=== PATIENT | male | born 1985 | race Caucasian/White ===

== ENCOUNTER 2018-08-10 12:37 | Emergency (ER) | payer OTHER ==
[2018-08-10] MEDS ORDERED: SODIUM CHLORIDE 0.9% 1,000 ML IV ONE (13:46)
[2018-08-10] MEDS ORDERED: ACETAMINOPHEN 1,000 MG/100 ML 100 ML IV STA (13:46)
[2018-08-10] MEDS ORDERED: diphenhydrAMINE INJ 50 MG/ML VIAL IVP STA (13:46)
[2018-08-10] MEDS ORDERED: METOCLOPRAMIDE 10 MG/2 ML VIAL IVP STA (13:46)
--- NOTE | 2018-08-10 14:21 | CT Report ---
Reason: ESCOBAR Procedure Date: 08/10/2018 Accession Number: [id number] / [id number] Procedure: CT - Head W/O CPT Code: FULL RESULT: EXAM: CT HEAD EXAM DATE: 08/10/2018 02:12 PM. CLINICAL HISTORY: Headache behind right eye for 4 days. COMPARISON: None. TECHNIQUE: Multiaxial CT images were obtained from the foramen magnum to the vertex. Reformats: Sagittal and coronal. IV contrast: None. In accordance with CT protocol optimization, one or more of the following dose reduction techniques were utilized for this exam: automated exposure control, adjustment of mA and/or KV based on patient size, or use of iterative reconstructive technique. FINDINGS: Parenchyma: No intraparenchymal hemorrhage. No evidence of mass, midline shift, or CT findings of infarction. Sofia-white differentiation is distinct. Extraaxial Spaces: Normal for age. No subdural or epidural collections identified. Ventricles: Normal in size and position. Sinuses and Orbits: Imaged paranasal sinuses, orbits, and mastoids show no significant abnormality. Bones: No evidence of fracture or calvarial defect. Other: None. IMPRESSION: Negative nonenhanced head CT. RADIA
[2018-08-10] MEDS ORDERED: SUMAtriptan 6 MG/0.5 ML VIAL SUBQ STA (14:59)
--- NOTE | 2018-08-10 15:00 | ED Physician Documentation ---
PD HPI HEADACHE - Stated complaint Stated Complaint: MIGRAINE/NAUSEA/DIZZY - Chief complaint Chief Complaint: Neuro - History obtained from History obtained from: Patient - History of Present Illness Timing - onset: How many days ago (4) Timing - details: Gradual onset Severity Comments: moderate Worst headache ever?: No: Worst headache ever? Quality: Stabbing. No: Thunderclap, Throbbing Associated symptoms: Nausea. No: Fever, Stiff neck, Vomiting Improved by: Nothing Worsened by: Light, Noise Contributing factors: No: Anticoagulated - Additional information Additional information: 33-year-old male reports a sharp stabbing pain behind his left eye, the patient's pain is intense for 20 minutes and then subsides but is left with a dull ache mostly on the top of his head. The patient denies vision changes, eye redness, blurry vision, pentecostal pain, rash or ear pain. The patient has had episodes of this in the past over the years and the headaches are sporadic. Review of Systems Constitutional: denies: Fever, Chills Eyes: denies: Loss of vision, Decreased vision, Photophobia, Discharge, Irritation Ears: denies: Ear pain Nose: denies: Congestion Throat: denies: Sore throat Cardiac: denies: Chest pain / pressure Respiratory: denies: Cough GI: denies: Abdominal Pain : denies: Dysuria Skin: denies: Rash Musculoskeletal: denies: Neck pain Neurologic: reports: Headache. denies: Generalized weakness, Numbness, Difficulty speaking, Near syncope PD PAST MEDICAL HISTORY - Past Medical History Past Medical History: Yes GI: GERD - Past Surgical History Past Surgical History: Yes General: Cholecystectomy - Present Medications Home Medications: Ambulatory Orders Medication Instructions Recorded Confirmed Esomeprazole Magnesium [Nexium] 1 cap PO DAILY 08/08/16 08/10/18 Metoclopramide [Reglan] 10 mg PO Q6H PRN #30 tablet 08/10/18 Naproxen 500 mg PO BID PRN #60 tablet 08/10/18 Sumatriptan Succinate [Imitrex] 50 mg PO PRN PRN #20 tablet 08/10/18 - Allergies Allergies/Adverse Reactions: Allergies Allergy/AdvReac Type Severity Reaction Status Date / Time No Known Drug Allergies Allergy Verified 08/10/18 12:43 - Social History Does the pt smoke?: No Smoking Status: Never smoker Does the pt drink ETOH?: No Does the pt have substance abuse?: No - Immunizations Immunizations are current?: Yes - POLST Patient has POLST: No PD ED PE NORMAL - General General: Alert and oriented X 3, No acute distress - HEENT HEENT: Atraumatic, PERRL, EOMI, Ears normal, Pharynx benign - Neck Neck: Supple, no meningeal sign - Cardiac Cardiac: RRR, Strong equal pulses - Respiratory Respiratory: No respiratory distress - Derm Derm: Normal color - Extremities Extremities: No deformity - Neuro Neuro: Alert and oriented X 3, 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 The patient's headache seems to represent possibly a cluster headache. The patient's history is not suggestive of subarachnoid hemorrhage, bacterial meningitis or a venous sinus thrombosis, and currently I do not think any further workup is warranted in the emergency department at this point. Presently, the patient appears appropriate for discharge and ongoing outpatient management. I discussed the findings and plan with the patient and he understands and agrees. I discussed warning signs and recommended returning to the emergency department immediately for worsening or any concerns. Departure - Departure Disposition: 01 Home, Self Care Clinical Impression: Acute headache Qualifiers: Headache type: unspecified Intractability: not intractable Qualified Code(s): R51 - Headache Condition: Good Instructions: ED Cephalgia Unspecified, ED Headache Cluster Follow-Up: [facility] [Provider Group] - Within 1 week (If your symptoms are not improving you may require an outpatient MRI and referral to neurology) Prescriptions: Metoclopramide [Reglan] 10 mg PO Q6H PRN #30 tablet PRN Reason: Headache Naproxen 500 mg PO BID PRN #60 tablet PRN Reason: Pain Sumatriptan Succinate [Imitrex] 50 mg PO PRN PRN #20 tablet PRN Reason: Headache Comments: Please return to the emergency department for worsening symptoms or any concerns.
[2018-08-10] MEDS ORDERED: DEXAMETHASONE 10 MG/ML VIAL IVP STA (15:47)
[2018-08-10 16:32] VITALS: BP 118/66
== END 2018-08-10 16:33 | disposition home or self-care (01) ==
LOC: ED 12:37
DX: R51 Headache (principal)
CPT/HCPCS: 70450; 96361; 96365; 96372; 96375; 99283; J0131; J1200; J2765

== ENCOUNTER 2018-08-16 13:21 | Emergency (ER) | payer OTHER ==
[2018-08-16] MEDS ORDERED: IBUPROFEN 400 MG TABLET PO STA (15:00)
[2018-08-16] MEDS ORDERED: ACETAMINOPHEN 325 MG TABLET PO STA (15:00)
[2018-08-16] MEDS ORDERED: CYCLOBENZAPRINE 10 MG TABLET PO STA (15:01)
[2018-08-16] MEDS ORDERED: LIDOCAINE PATCH 5% TOP STA (15:01)
[2018-08-16 15:07] LABS: BILIRUBIN,URINE NEGATIVE (NEGATIVE); GLUCOSE, URINE (UA) NEGATIVE (NEGATIVE); KETONES,URINE (UA) NEGATIVE (NEGATIVE); LEUKOCYTE ESTERASE, URINE NEGATIVE (NEGATIVE); NITRITE,URINE NEGATIVE (NEGATIVE); OCCULT BLOOD,URINE NEGATIVE (NEGATIVE); PROTEIN,URINE NEGATIVE (NEGATIVE); UROBILINOGEN,URINE 0.2 (NORMAL) E.U./dL (NORMAL)
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
[2018-08-16 15:08] LABS: CLARITY,URINE CLEAR (CLEAR)
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
[2018-08-16] MEDS ORDERED: oxyCODONE 5 MG TABLET PO STA (16:48)
[2018-08-16 16:50] VITALS: BP 128/87
== END 2018-08-16 17:11 | disposition home or self-care (01) ==
LOC: ED 13:21
DX: S13.9XXA Sprain of joints and ligaments of unspecified parts of neck, initial encounter (principal); S23.3XXA Sprain of ligaments of thoracic spine, initial encounter; V43.52XA Car driver injured in collision with other type car in traffic accident, initial encounter; Y92.410 Unspecified street and highway as the place of occurrence of the external cause
CPT/HCPCS: 71046; 72040; 81003; 99283; A9270; 81001; 87086

== ENCOUNTER 2018-12-07 18:31 | Emergency (ER) | payer OTHER ==
[2018-12-07 18:35] VITALS: BP 132/87
--- NOTE | 2018-12-07 18:58 | ED Physician Documentation ---
PD HPI LOWER EXT INJURY - Stated complaint Stated Complaint: LT LEG INJURY - Chief complaint Chief Complaint: Ext Problem - History obtained from History obtained from: Patient, Family - History of Present Illness PD HPI LOW EXT INJURY LOCATION: Left, Lower leg, Ankle Type of injury: Fall Where injury occurred: Home Timing - onset: Last night Timing - duration: Days (1) Timing - details: Gradual onset Pain level max: 7 Pain level now: 7 Improved by: Rest, Ice, Immobilization Worsened by: Moving, Palpating Associated symptoms: Swelling. No: Weakness, Numbness, Tingling Contributing factors: No: Anticoagulated, Prior ortho surgery Similar symptoms before: Has not had sx before Recently seen: Not recently seen Review of Systems Constitutional: denies: Fever, Chills GI: denies: Vomiting Skin: denies: Rash Musculoskeletal: denies: Neck pain, Back pain Neurologic: denies: Headache PD PAST MEDICAL HISTORY - Past Medical History Cardiovascular: None Respiratory: None Neuro: None Endocrine/Autoimmune: None GI: GERD : None HEENT: None Psych: None Musculoskeletal: None Derm: None - Past Surgical History Past Surgical History: Yes General: Cholecystectomy, Other - Present Medications Home Medications: Ambulatory Orders Medication Instructions Recorded Confirmed Esomeprazole Magnesium [Nexium] 1 cap PO DAILY 08/08/16 08/10/18 Hydrocodone/Acetaminophen 1 - 2 each PO Q6H PRN #14 tablet 12/07/18 [Hydrocodon-Acetaminophen 5-325] - Allergies Allergies/Adverse Reactions: Allergies Allergy/AdvReac Type Severity Reaction Status Date / Time No Known Drug Allergies Allergy Verified 12/07/18 18:34 - Social History Does the pt smoke?: No Smoking Status: Never smoker Does the pt drink ETOH?: Yes Does the pt have substance abuse?: No - Immunizations Immunizations are current?: Yes - POLST Patient has POLST: No PD ED PE NORMAL - Vitals Vital signs reviewed: Yes - General General: Alert and oriented X 3, No acute distress - HEENT HEENT: Moist mucous membranes - Derm Derm: Warm and dry - Extremities Extremities: Other (Tender palpation over the mid fibula, also tender palpation over the lateral malleolus of the left ankle. Neurovascular intact. Otherwise normal examination of the left lower leg and ankle. No tenderness over the foot.) - Neuro Neuro: Alert and oriented X 3 Results - Vitals Vitals: Vital Signs - 24 hr 12/07/18 18:33 Temperature 37.2 C Heart Rate 75 Respiratory 20 Rate Blood Pressure 132/87 H O2 Saturation 100 Oxygen O2 Source Room air - Rads (name of study) L tib fib xray Radiology: Prelim report reviewed, EMP read contemporaneously, See rad report (Normal) L ankle xray Radiology: Prelim report reviewed, EMP read contemporaneously, See rad report (Normal) PD MEDICAL DECISION MAKING - ED course Complexity details: reviewed results, re-evaluated patient, considered differential, d/w patient, d/w family ED course: 33-year-old male with left ankle sprain. Negative x-rays. Placed in a gel splint for comfort and given crutches. Will prescribe pain medications for home and follow-up with his doctor. Patient and family counseled regarding signs and symptoms for which I believe and urgent re-evaluation would be necessary. Patient with good understanding of and agreement to plan and is comfortable going home at this time This document was made in part using voice recognition software. While efforts are made to proofread this document, sound alike and grammatical errors may occur. Departure - Departure Disposition: 01 Home, Self Care Clinical Impression: Left ankle sprain Qualifiers: Encounter type: initial encounter Involved ligament of ankle: unspecified ligament Qualified Code(s): S93.402A - Sprain of unspecified ligament of left ankle, initial encounter Condition: Good Instructions: ED Sprain Ankle W X Ray Follow-Up: [facility] [Provider Group] - Within 1 week Prescriptions: Hydrocodone/Acetaminophen [Hydrocodon-Acetaminophen 5-325] 1 - 2 each PO Q6H PRN #14 tablet PRN Reason: pain Comments: Your x-rays are normal today. This should improve over the next week or 2. Follow-up with your doctor for further care. You may bear weight as tolerated. Do not drink alcohol or drive while on narcotic pain medicine. Note that many narcotic pain relievers also contain tylenol/acetaminophen. Please ensure that your total dose of acetaminophen from all sources does not exceed 3 grams (3000mg) per day. You may constipated on this medication, take a stool softener such as "Colace" twice a day while you are on it. Also recommend a [id number] laxative such as senna or MiraLAX any day that you do not have a bowel movement. If you received narcotic pain medication in the emergency department, do not drive or operate machinery for the next 24 hours. Discharge Date/Time: 12/07/18 20:00
[2018-12-07] MEDS: HYDROcod/ACETAM 5/325 MG TABLET PO STA (19:14)
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
== END 2018-12-07 20:00 | disposition home or self-care (01) ==
LOC: ED 18:31
DX: S93.402A Sprain of unspecified ligament of left ankle, initial encounter (principal); W10.9XXA Fall (on) (from) unspecified stairs and steps, initial encounter; Y92.009 Unspecified place in unspecified non-institutional (private) residence as the place of occurrence of the external cause
CPT/HCPCS: 99283

== ENCOUNTER 2020-01-05 18:50 | Emergency (ER) | payer OTHER ==
[2020-01-05] MEDS ORDERED: MORPHINE 10 MG/ML VIAL IVP STA (19:06)
[2020-01-05 19:22] LABS: BILIRUBIN,URINE NEGATIVE (NEGATIVE); GLUCOSE, URINE (UA) NEGATIVE (NEGATIVE); KETONES,URINE (UA) NEGATIVE (NEGATIVE); LEUKOCYTE ESTERASE, URINE NEGATIVE (NEGATIVE); NITRITE,URINE NEGATIVE (NEGATIVE); OCCULT BLOOD,URINE NEGATIVE (NEGATIVE); PROTEIN,URINE NEGATIVE (NEGATIVE); UROBILINOGEN,URINE 0.2 (NORMAL) E.U./dL (NORMAL)
[2020-01-05 19:23] LABS: CLARITY,URINE CLEAR (CLEAR)
[2020-01-05 19:26] LABS: EOSINOPHILS % (AUTO) 0.5 %
[2020-01-05 19:29] LABS: BASOPHILS # (AUTO) 0.1 10^3/uL (0.0-0.1); BASOPHILS % (AUTO) 0.3 %; EOSINOPHILS # (AUTO) 0.1 10^3/uL (0.0-0.7); LYMPHOCYTES # (AUTO) 1.9 10^3/uL (1.5-3.5); LYMPHOCYTES % (AUTO) 10.9 %; MEAN CORPUSCULAR HEMOGLOBIN 30.7 pg (27.0-31.0); MEAN CORPUSCULAR HGB CONC 34.7 g/dL (32.0-36.0); MEAN CORPUSCULAR VOLUME 88.5 fL (80.0-94.0); MONOCYTES # (AUTO) 1.7 10^3/uL (0.0-1.0); MONOCYTES % (AUTO) 9.7 %; NEUTROPHILS # (AUTO) 13.4 10^3/uL (1.5-6.6); NEUTROPHILS % (AUTO) 77.8 %; PLT - PLATELET COUNT 259 10^3/uL (130-450); RED BLOOD COUNT 4.88 10^6/uL (4.70-6.10); RED CELL DISTRIBUTION WIDTH 12.3 % (12.0-15.0); WHITE BLOOD COUNT 17.2 x10^3/uL (4.8-10.8)
--- NOTE | 2020-01-05 19:31 | ED Physician Documentation ---
History of Present Illness - Stated complaint Stated Complaint: MALE - Chief complaint Chief Complaint: General - History obtained from History obtained from: Patient - History of Present Illness Timing: How many days ago (4) Pain level max: 8 Pain level now: 8 - Additonal information Additional information: Right lower quadrant and right back pain for the past 4 days. Worse with movement and better with rest. No fever. No nausea or vomiting. No dysuria. He feels like he is urinating less. Has not taken anything for this. Review of Systems Ten Systems: 10 systems reviewed and negative Constitutional: denies: Fever, Chills GI: denies: Vomiting, Diarrhea : denies: Dysuria, Frequency, Hesitancy Skin: denies: Rash Musculoskeletal: denies: Neck pain PD PAST MEDICAL HISTORY - Past Medical History Cardiovascular: None Respiratory: None Neuro: None Endocrine/Autoimmune: None GI: GERD : None HEENT: None Psych: None Musculoskeletal: None Derm: None - Past Surgical History Past Surgical History: Yes General: Cholecystectomy, Other - Present Medications Home Medications: Ambulatory Orders Medication Instructions Recorded Confirmed Esomeprazole Magnesium [Nexium] 1 cap PO DAILY 08/08/16 08/10/18 Amox/Clav 875/125 [Augmentin] 1 each PO Q12H #20 tablet 01/05/20 Oxycodone HCl 5 - 10 mg PO Q6H PRN #14 tablet 01/05/20 - Allergies Allergies/Adverse Reactions: Allergies Allergy/AdvReac Type Severity Reaction Status Date / Time No Known Drug Allergies Allergy Verified 01/05/20 18:57 - Social History Does the pt smoke?: No Smoking Status: Never smoker Does the pt drink ETOH?: Yes Does the pt have substance abuse?: No - Immunizations Immunizations are current?: Yes - POLST Patient has POLST: No PD ED PE NORMAL - Vitals Vital signs reviewed: Yes - General General: Alert and oriented X 3, No acute distress, Well developed/nourished - HEENT HEENT: Moist mucous membranes - Neck Neck: Supple, no meningeal sign - Cardiac Cardiac: RRR, No murmur - Respiratory Respiratory: No respiratory distress, Clear bilaterally - Abdomen Abdomen: Normal bowel sounds, Soft, Non distended, Other (Tender to palpation right lower quadrant McBurney's point. Positive guarding and rebound) - Back Back: No CVA TTP - Derm Derm: Warm and dry - Extremities Extremities: No edema - Neuro Neuro: Alert and oriented X 3 - Psych Psych: Normal mood, Normal affect Results - Vitals Vitals: Vital Signs - 24 hr 01/05/20 01/05/20 18:56 20:20 Temperature 37.3 C 37.9 C H Heart Rate 100 96 Respiratory 16 20 Rate Blood Pressure 132/77 H 125/73 O2 Saturation 97 96 Oxygen O2 Source Room air - Labs Labs: Laboratory Tests 01/05/20 01/05/20 01/05/20 19:15 19:20 19:20 WBC 17.2 H RBC 4.88 Hgb 15.0 Hct 43.2 MCV 88.5 MCH 30.7 MCHC 34.7 RDW 12.3 Plt Count 259 MPV 10.0 Neut # (Auto) 13.4 H Lymph # (Auto) 1.9 [place] # (Auto) 1.7 H Eos # (Auto) 0.1 Baso # (Auto) 0.1 Absolute Nucleated RBC 0.00 Band Neuts % (Manual) Not Reportable Abnorm Lymph % (Manual) Not Reportable Nucleated RBC % 0.0 Neutrophils # (Manual) Not Reportable Lymphocytes # (Manual) Not Reportable Monocytes # (Manual) Not Reportable Eosinophils # (Manual) Not Reportable Basophils # (Manual) Not Reportable Differential Comment MANUAL=AUTO DIFF Manual Slide Review Indicated Platelet Estimate NORMAL (130-450,000) Platelet Morphology NORMAL APPEARANCE RBC Morph Micro Appear NORMAL APPEARANCE Sodium 137 Potassium 3.7 Chloride 102 Carbon Dioxide 25 Anion Gap 10.0 BUN 21 H Creatinine 1.2 Estimated GFR (MDRD) 69 L Glucose 106 H Calcium 9.1 Total Bilirubin 1.1 H AST 21 ALT 30 Alkaline Phosphatase 71 Total Protein 7.3 Albumin 4.3 Globulin 3.0 Albumin/Globulin Ratio 1.4 Lipase 33 Urine Color YELLOW Urine Clarity CLEAR Urine pH 6.0 Ur Specific [place] 1.025 Urine Protein NEGATIVE Urine Glucose (UA) NEGATIVE Urine Ketones NEGATIVE Urine Occult Blood NEGATIVE Urine Nitrite NEGATIVE Urine Bilirubin NEGATIVE Urine Urobilinogen 0.2 (NORMAL) Ur Leukocyte Esterase NEGATIVE Ur Microscopic Review NOT INDICATED Urine Culture Comments NOT INDICATED - Rads (name of study) CT abdomen and pelvis Radiology: Prelim report reviewed, EMP read contemporaneously, See rad report (Sigmoid diverticulitis. Trace amount of free fluid but no drainable fluid collections or extraluminal gas. ) PD MEDICAL DECISION MAKING - ED course Complexity details: reviewed results, re-evaluated patient, considered differential, d/w patient ED course: 34-year-old male with sigmoid diverticulitis. Given antibiotics here. Pain well controlled. No drainable abscess. No extraluminal gas. We will continue antibiotics and pain medication at home. He is well-appearing, nontoxic. Afebrile. Patient counseled regarding signs and symptoms for which I believe and urgent re-evaluation would be necessary. Patient with good understanding of and agreement to plan and is comfortable going home at this time This document was made in part using voice recognition software. While efforts are made to proofread this document, sound alike and grammatical errors may occur. Departure - Departure Disposition: 01 Home, Self Care Clinical Impression: Diverticulitis Condition: Good Instructions: ED Diverticulitis Follow-Up: your,doctor in 3 days for recheck [Other] Prescriptions: Amox/Clav 875/125 [Augmentin] 1 each PO Q12H #20 tablet Oxycodone HCl 5 - 10 mg PO Q6H PRN #14 tablet PRN Reason: pain Comments: Take all antibiotics until gone. Return if you worsen. Return if you develop worsening pain, fever or any other new or worrisome symptoms. This should begin to improve within the next 24 hours[address] not drink alcohol or drive while on narcotic pain medicine. Note that many narcotic pain relievers also contain tylenol/acetaminophen. Please ensure that your total dose of acetaminophen from all sources does not exceed 3 grams (3000mg) per day. You may constipated on this medication, take a stool softener such as "Colace" twice a day while you are on it. Also recommend a [id number] laxative such as senna or MiraLAX any day that you do not have a bowel movement. If you received narcotic pain medication in the emergency department, do not drive or operate machinery for the next 24 hours. Discharge Date/Time: 01/05/20 20:22
[2020-01-05 19:40] LABS: ALBUMIN 4.3 g/dL (3.2-5.5); ALBUMIN/GLOBULIN RATIO 1.4 (1.0-2.2); BILIRUBIN,TOTAL 1.1 mg/dL (0.2-1.0); CALCIUM 9.1 mg/dL (8.5-10.3); CREATININE 1.2 mg/dL (0.6-1.2); TOTAL PROTEIN 7.3 g/dL (6.7-8.2)
[2020-01-05] MEDS ORDERED: IOVERSOL 320 100 ML VIAL IVP ONE ×2 (19:50→19:59)
[2020-01-05 20:06] LABS: PLATELET ESTIMATE, MANUAL NORMAL (130-450,000) (NORMAL); PLATELET MORPHOLOGY NORMAL APPEARANCE (NORMAL); RBC MORPHOLOGY (MULTIPLE) NORMAL APPEARANCE (NORMAL)
[2020-01-05 20:07] LABS: DIFFERENTIAL COMMENT MANUAL=AUTO DIFF
--- NOTE | 2020-01-05 20:10 | CT Report ---
Reason: RLQ abd pain Procedure Date: 01/05/2020 Accession Number: [id number] / [id number] Procedure: CT - Abdomen/Pelvis W CPT Code: Final Report FULL RESULT: EXAM: CT ABDOMEN AND PELVIS EXAM DATE: 01/05/2020 07:56 PM. CLINICAL HISTORY: RLQ abd pain. COMPARISONS: None. TECHNIQUE: Routine helical CT imaging was performed through the abdomen and pelvis. IV contrast: OPTIRAY 320, 100cc. Enteric contrast: No. Reconstructions: Coronal and sagittal. In accordance with CT protocol optimization, one or more of the following dose reduction techniques were utilized for this exam: automated exposure control, adjustment of mA and/or KV based on patient size, or use of iterative reconstructive technique. FINDINGS: Lung Bases: Unremarkable. Liver: Normal. No masses. Gallbladder/Bile Ducts: Status post cholecystectomy. Spleen: Normal. Pancreas: Normal. Adrenal Glands: Normal. Kidneys: Normal. No masses or hydronephrosis. Peritoneal Cavity/Bowel: Diverticulosis, greatest in the sigmoid colon, with focal short segment of diverticulitis involving the distal sigmoid colon best seen on images 72 through 75 of series 3. No extraluminal gas. No drainable fluid collections. Trace amount of free fluid in the pelvis. The appendix is well visualized and normal. Pelvic Organs: Normal. The bladder and visualized pelvic organs are within normal limits. Vasculature: No aneurysms or other significant abnormality. Bones: No significant abnormality. Other: None. IMPRESSION: Sigmoid diverticulitis. Trace amount of free fluid but no drainable fluid collections or extraluminal gas. RADIA
[2020-01-05] MEDS ORDERED: AMOX/CLAV 875 MG/125 MG TABLET PO STA (20:13)
[2020-01-05 20:21] VITALS: BP 125/73
== END 2020-01-05 20:22 | disposition home or self-care (01) ==
LOC: ED 18:50
DX: K57.32 Diverticulitis of large intestine without perforation or abscess without bleeding (principal)
CPT/HCPCS: 36415; 74177; 80053; 81003; 83690; 85025; 96374; 99284; A9270; Q9967; 81001; 87086

== ENCOUNTER 2020-01-18 09:07 | Emergency (ER) | payer OTHER ==
--- NOTE | 2020-01-18 09:20 | ED Physician Documentation ---
PD HPI ABD PAIN - Stated complaint Stated Complaint: R LOWER ABD PX,BLOOD IN STOOL - History obtained from History obtained from: Patient - History of Present Illness Timing - onset: How many days ago (2) Timing - duration: Days (2) Timing - details: Gradual onset, Still present Quality: Cramping, Aching, Pain Location: RLQ, Suprapubic Radiation: Lower back Worsened by: Palpation. No: Eating, Breathing Associated symptoms: Nausea, Hematochezia (today). No: Fever, Vomiting Similar symptoms before: Diagnosis (seen 2 weeks ago and Dx with sigmoid diverticulitis by CT and labs. Rx with Augmentin BID for 10d ays and was better after several days. Had been done abx for 4 days and with similar pain onset again 2 days ago. Bloody stool bright red today.) Recently seen: Emergency Dept Review of Systems Constitutional: denies: Fever, Chills, Myalgias Nose: denies: Rhinorrhea / runny nose, Congestion Throat: denies: Sore throat Respiratory: denies: Cough GI: reports: Abdominal Pain, Nausea, Bloody / black stool. denies: Vomiting, Diarrhea : denies: Dysuria, Frequency Skin: denies: Rash, Lesions Neurologic: denies: Generalized weakness, Near syncope PD PAST MEDICAL HISTORY - Past Medical History Cardiovascular: None Respiratory: None Neuro: None Endocrine/Autoimmune: None GI: GERD : None HEENT: None Psych: None Musculoskeletal: None Derm: None - Past Surgical History Past Surgical History: Yes General: Cholecystectomy, Other - Present Medications Home Medications: Ambulatory Orders Medication Instructions Recorded Confirmed Esomeprazole Magnesium [Nexium] 1 cap PO DAILY 08/08/16 08/10/18 Amox/Clav 875/125 [Augmentin] 1 each PO Q12H #20 tablet 01/05/20 Oxycodone HCl 5 - 10 mg PO Q6H PRN #14 tablet 01/05/20 Cephalexin [Keflex] 500 mg PO TID #21 capsule 01/18/20 Hydrocodone/Acetaminophen [[place] 1 each PO Q6H PRN #20 tablet 01/18/20 5-325 Tablet] Naproxen 375 mg PO BID #20 tablet 01/18/20 Ondansetron Odt [Zofran] 4 mg TL Q6H PRN #15 tablet 05/14/20 metroNIDAZOLE [Flagyl] 500 mg PO BID #20 tablet 01/18/20 - Allergies Allergies/Adverse Reactions: Allergies Allergy/AdvReac Type Severity Reaction Status Date / Time No Known Drug Allergies Allergy Verified 01/18/20 09:22 - Social History Does the pt smoke?: No Smoking Status: Never smoker Does the pt drink ETOH?: Yes Does the pt have substance abuse?: No - Immunizations Immunizations are current?: Yes - POLST Patient has POLST: No PD ED PE NORMAL - Vitals Vital signs reviewed: Yes - General General: Alert and oriented X 3, No acute distress, Well developed/nourished - Neck Neck: Supple, no meningeal sign, No adenopathy - Cardiac Cardiac: RRR, No murmur - Respiratory Respiratory: Clear bilaterally - Abdomen Abdomen: Normal bowel sounds, Soft, Non distended, No organomegaly, Other (tender RLQ and suprapubic area with local guarding and percussion/rebound tenderness lower abd. ) Results - Vitals Vitals: Vital Signs - 24 hr 01/18/20 01/18/20 09:23 11:32 Temperature 37.0 C 36.4 C L Heart Rate 70 56 L Respiratory 18 16 Rate Blood Pressure 141/85 H 118/81 H O2 Saturation 96 98 Oxygen O2 Source Room air - Labs Labs: Laboratory Tests 01/18/20 01/18/20 01/18/20 10:05 10:06 10:31 WBC 12.6 H RBC 5.00 Hgb 15.7 Hct 44.6 MCV 89.2 MCH 31.4 H MCHC 35.2 RDW 12.4 Plt Count 302 MPV 9.4 Neut # (Auto) 9.9 H Lymph # (Auto) 1.8 [place] # (Auto) 0.8 Eos # (Auto) 0.1 Baso # (Auto) 0.0 Absolute Nucleated RBC 0.00 Nucleated RBC % 0.0 Sodium 134 L Potassium 4.2 Chloride 98 L Carbon Dioxide 27 Anion Gap 9.0 BUN 24 H Creatinine 1.1 Estimated GFR (MDRD) 76 L Glucose 84 Calcium 8.7 Total Bilirubin 0.7 AST 23 ALT 22 Alkaline Phosphatase 62 Total Protein 6.8 Albumin 3.6 Globulin 3.2 Albumin/Globulin Ratio 1.1 Lipase 31 Urine Color YELLOW Urine Clarity CLEAR Urine pH 6.0 Ur Specific [place] 1.020 Urine Protein NEGATIVE Urine Glucose (UA) NEGATIVE Urine Ketones NEGATIVE Urine Occult Blood NEGATIVE Urine Nitrite NEGATIVE Urine Bilirubin NEGATIVE Urine Urobilinogen 0.2 (NORMAL) Ur Leukocyte Esterase NEGATIVE Ur Microscopic Review NOT INDICATED Urine Culture Comments NOT INDICATED - Rads (name of study) abd CT Radiology: Prelim report reviewed (sigmoid diverticulitis without perforation nor abscess. ), See rad report PD MEDICAL DECISION MAKING - ED course Complexity details: reviewed results (persistent sigmoid diverticulitis, will change abx and give NSAIDs/pain meds. Stable vitals and blood count, so presume not clinically significant GI bleeding as yet. Cautioned pt to return if worse. ), considered differential (recurrent pain c/w recent diverticulitis and with hematachezia now, shared decision to repeat CT to ensure no perforation nor abscess. ), d/w patient Departure - Departure Disposition: 01 Home, Self Care Clinical Impression: Sigmoid diverticulitis, Bloody stool Abdominal pain Qualifiers: Abdominal location: right lower quadrant Qualified Code(s): R10.31 - Right lower quadrant pain Condition: Stable Instructions: ED Diverticulitis, ED Hematochezia Stable Follow-Up: JERED SEPULVEDA III, MD [Primary Care Provider] - Prescriptions: Cephalexin [Keflex] 500 mg PO TID #21 capsule Hydrocodone/Acetaminophen [[place] 5-325 Tablet] 1 each PO Q6H PRN #20 tablet PRN Reason: Pain metroNIDAZOLE [Flagyl] 500 mg PO BID #20 tablet Naproxen 375 mg PO BID #20 tablet Ondansetron Odt [Zofran] 4 mg TL Q6H PRN #15 tablet PRN Reason: Nausea / Vomiting Comments: Stay well hydrated. The blood in the stool is a common enough problem associated with diverticulitis. Your CT scan does not show any abscess or signs of perforation. There is still persistent diverticulitis. We will go with a different antibiotic regimen of cephalexin and metronidazole and see if that clears the diverticulitis this time. You can also use naproxen anti-inflammatory for the inflammation part and add ondansetron if needed for nausea. To that add Tylenol if needed for pain or hydrocodone for worse pain. Recheck if not improved well over the next 2 to 3 days and the bleeding has stop ped. Return if worsening. Discharge Date/Time: 01/18/20 12:15
[2020-01-18] MEDS ORDERED: metroNIDAZOLE 500 MG/100 ML 500 MG/100 ML BAG IV ONE (09:55)
[2020-01-18] MEDS ORDERED: cefTRIAXone 1 GM VIAL IVP STA (09:55)
[2020-01-18] MEDS ORDERED: SODIUM CHLORIDE 0.9% 1,000 ML IV ONE (09:55)
[2020-01-18] MEDS ORDERED: IOVERSOL 320 100 ML VIAL IVP ONE ×2 (10:03→12:18)
[2020-01-18] MEDS ORDERED: KETOROLAC 30 MG/ML VIAL IVP STA (10:10)
[2020-01-18] MEDS ORDERED: ONDANSETRON 4 MG/2 ML VIAL IVP STA (10:10)
[2020-01-18] MEDS ORDERED: MORPHINE 2 MG/ML CARPUJECT IVP STA (10:10)
[2020-01-18 10:12] LABS: BASOPHILS % (AUTO) 0.3 %; EOSINOPHILS # (AUTO) 0.1 10^3/uL (0.0-0.7); EOSINOPHILS % (AUTO) 0.6 %; HGB - HEMOGLOBIN 15.7 g/dL (14.0-18.0); LYMPHOCYTES # (AUTO) 1.8 10^3/uL (1.5-3.5); LYMPHOCYTES % (AUTO) 14.1 %; MEAN CORPUSCULAR HEMOGLOBIN 31.4 pg (27.0-31.0); MEAN CORPUSCULAR HGB CONC 35.2 g/dL (32.0-36.0); MEAN CORPUSCULAR VOLUME 89.2 fL (80.0-94.0); MEAN PLATELET VOLUME 9.4 fL (7.4-11.4); MONOCYTES # (AUTO) 0.8 10^3/uL (0.0-1.0); NEUTROPHILS # (AUTO) 9.9 10^3/uL (1.5-6.6); NEUTROPHILS % (AUTO) 78.4 %; PLT - PLATELET COUNT 302 10^3/uL (130-450); RED CELL DISTRIBUTION WIDTH 12.4 % (12.0-15.0); WHITE BLOOD COUNT 12.6 x10^3/uL (4.8-10.8)
[2020-01-18 10:15] LABS: BILIRUBIN,URINE NEGATIVE (NEGATIVE); GLUCOSE, URINE (UA) NEGATIVE (NEGATIVE); KETONES,URINE (UA) NEGATIVE (NEGATIVE); LEUKOCYTE ESTERASE, URINE NEGATIVE (NEGATIVE); NITRITE,URINE NEGATIVE (NEGATIVE); OCCULT BLOOD,URINE NEGATIVE (NEGATIVE); PROTEIN,URINE NEGATIVE (NEGATIVE); UROBILINOGEN,URINE 0.2 (NORMAL) E.U./dL (NORMAL)
[2020-01-18 10:16] LABS: CLARITY,URINE CLEAR (CLEAR)
--- NOTE | 2020-01-18 10:48 | CT Report ---
Reason: recnt diverticulitis; pain again, peritoneal exam Procedure Date: 01/18/2020 Accession Number: [id number] / [id number] Procedure: CT - Abdomen/Pelvis W CPT Code: Final Report FULL RESULT: EXAM: CT ABDOMEN AND PELVIS EXAM DATE: 01/18/2020 10:26 AM. CLINICAL HISTORY: Recent diverticulitis; pain again, peritoneal exam. COMPARISONS: ABDOMEN/PELVIS W 01/05/2020 7:51 PM. TECHNIQUE: Routine helical CT imaging was performed through the abdomen and pelvis. IV contrast: 100 mL OPTIRAY 320. Enteric contrast: No. Reconstructions: Coronal and sagittal. In accordance with CT protocol optimization, one or more of the following dose reduction techniques were utilized for this exam: automated exposure control, adjustment of mA and/or KV based on patient size, or use of iterative reconstructive technique. FINDINGS: Lung Bases: Unremarkable. Liver: Normal. No masses. Gallbladder/Bile Ducts: Previous cholecystectomy. No biliary ductal dilatation identified. Spleen: Normal. Pancreas: Normal. Adrenal Glands: Normal. Kidneys: Normal. No masses or hydronephrosis. Peritoneal Cavity/Bowel: No bowel obstruction identified. Again seen is long segment mural thickening and diverticuli of the sigmoid. There is pericolonic fat stranding involving the proximal to mid aspect of the sigmoid, consistent with diverticulitis. No free air or free fluid. No abscess identified. The appendix is well visualized and normal. Pelvic Organs: Normal. The bladder and visualized pelvic organs are within normal limits. Vasculature: No aneurysms or other significant abnormality. Bones: No significant abnormality. Other: None. IMPRESSION: Diverticulitis of the proximal to mid sigmoid. No free air or abscess identified. RADIA
[2020-01-18 10:52] LABS: ALBUMIN 3.6 g/dL (3.2-5.5); ALBUMIN/GLOBULIN RATIO 1.1 (1.0-2.2); BILIRUBIN,TOTAL 0.7 mg/dL (0.2-1.0); CALCIUM 8.7 mg/dL (8.5-10.3); CREATININE 1.1 mg/dL (0.6-1.2); TOTAL PROTEIN 6.8 g/dL (6.7-8.2)
[2020-01-18 11:43] VITALS: BP 118/81
== END 2020-01-18 12:15 | disposition home or self-care (01) ==
LOC: ED 09:07
DX: K57.33 Diverticulitis of large intestine without perforation or abscess with bleeding (principal)
CPT/HCPCS: 36415; 74177; 80053; 81003; 83690; 85025; 96365; 96375; 99284; 99285; Q9967; 81001; 87086

== ENCOUNTER 2020-02-08 22:30 | Emergency (ER) | payer OTHER ==
--- NOTE | 2020-02-08 22:35 | ED Physician Documentation ---
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[employer] with a known history of diverticulitis recently completed a course of Augmentin and Flagyl he has a scheduled outpatient evaluation this week with gastroenterology however tonight he is having worsening abdominal pain with nausea and irregular bowel movements without hematemesis or hematochezia.He denies any fevers.) Review of Systems Constitutional: reports: Reviewed and negative Eyes: reports: Reviewed and negative Ears: reports: Reviewed and negative Nose: reports: Reviewed and negative Throat: reports: Reviewed and negative Cardiac: reports: Reviewed and negative Respiratory: reports: Reviewed and negative GI: reports: Abdominal Pain, Nausea : reports: Reviewed and negative Skin: reports: Reviewed and negative Musculoskeletal: reports: Reviewed and negative Neurologic: reports: Reviewed and negative Psychiatric: reports: Reviewed and negative Endocrine: reports: Reviewed and negative Immunocompromised: reports: Reviewed and negative PD PAST MEDICAL HISTORY - Past Medical History Cardiovascular: None Respiratory: None Neuro: None Endocrine/Autoimmune: None GI: GERD : None HEENT: None Psych: None Musculoskeletal: None Derm: None - Past Surgical History Past Surgical History: Yes General: Cholecystectomy, Other - Present Medications Home Medications: Ambulatory Orders Medication Instructions Recorded Confirmed Esomeprazole Magnesium [Nexium] 1 cap PO DAILY 08/08/16 08/10/18 Amox/Clav 875/125 [Augmentin] 1 each PO Q12H #20 tablet 01/05/20 Oxycodone HCl 5 - 10 mg PO Q6H PRN #14 tablet 01/05/20 Cephalexin [Keflex] 500 mg PO TID #21 capsule 01/18/20 Hydrocodone/Acetaminophen [[place] 1 each PO Q6H PRN #20 tablet 01/18/20 5-325 Tablet] Naproxen 375 mg PO BID #20 tablet 01/18/20 Ondansetron Odt [Zofran] 4 mg TL Q6H PRN #15 tablet 01/18/20 metroNIDAZOLE [Flagyl] 500 mg PO BID #20 tablet 01/18/20 Dicyclomine [Bentyl] 20 mg PO QID PRN #10 capsule 02/09/20 - Allergies Allergies/Adverse Reactions: Allergies Allergy/AdvReac Type Severity Reaction Status Date / Time No Known Drug Allergies Allergy Verified 01/18/20 09:22 - Social History Does the pt smoke?: No Smoking Status: Never smoker Does the pt drink ETOH?: Yes Does the pt have substance abuse?: No - Immunizations Immunizations are current?: Yes - POLST Patient has POLST: No PD ED PE NORMAL - Vitals Vital signs reviewed: Yes - General General: Alert and oriented X 3, No acute distress, Well developed/nourished - HEENT HEENT: PERRL, Moist mucous membranes - Neck Neck: Supple, no meningeal sign, No JVD - Cardiac Cardiac: RRR, No murmur, Strong equal pulses - Respiratory Respiratory: No respiratory distress, Clear bilaterally - Abdomen Abdomen: Other (The abdomen soft its diffusely tender and is tender in bilateral lower quadrants as well as suprapubically. 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, No motor deficit, No sensory deficit, Normal speech - Psych Psych: Normal mood, Normal affect Results - Vitals Vitals: Vital Signs - 24 hr 02/08/20 02/08/20 02/09/20 22:39 23:40 00:30 Temperature 36.7 C Heart Rate 66 78 55 L Respiratory 18 12 16 Rate Blood Pressure 126/80 114/72 114/79 O2 Saturation 99 98 96 Oxygen O2 Source Room air - Labs Labs: Laboratory Tests 02/08/20 02/08/20 02/08/20 22:47 22:47 22:47 WBC 8.1 RBC 4.77 Hgb 14.9 Hct 41.9 L MCV 87.8 MCH 31.2 H MCHC 35.6 RDW 12.6 Plt Count 225 MPV 9.9 Neut # (Auto) 4.2 Lymph # (Auto) 2.9 [place] # (Auto) 0.7 Eos # (Auto) 0.2 Baso # (Auto) 0.1 Absolute Nucleated RBC 0.00 Nucleated RBC % 0.0 PT 10.9 INR 1.0 APTT 29.8 Sodium 139 Potassium 3.6 Chloride 102 Carbon Dioxide 28 Anion Gap 9.0 BUN 16 Creatinine 1.3 H Estimated GFR (MDRD) 62 L Glucose 87 Lactic Acid Calcium 9.0 Total Bilirubin 0.8 AST 29 ALT 41 Alkaline Phosphatase 62 Total Protein 7.2 Albumin 4.3 Globulin 2.9 Albumin/Globulin Ratio 1.5 Lipase 33 02/08/20 22:47 WBC RBC Hgb Hct MCV MCH MCHC RDW Plt Count MPV Neut # (Auto) Lymph # (Auto) [place] # (Auto) Eos # (Auto) Baso # (Auto) Absolute Nucleated RBC Nucleated RBC % PT INR APTT Sodium Potassium Chloride Carbon Dioxide Anion Gap BUN Creatinine Estimated GFR (MDRD) Glucose Lactic Acid 0.7 Calcium Total Bilirubin AST ALT Alkaline Phosphatase Total Protein Albumin Globulin Albumin/Globulin Ratio Lipase PD MEDICAL DECISION MAKING - ED course Complexity details: considered differential (History and exam are consistent with diverticulitis) Departure - Departure Disposition: 01 Home, Self Care Clinical Impression: Diverticulosis Condition: Stable Instructions: ED Diverticulosis Follow-Up: JERED SEPULVEDA III, MD [Primary Care Provider] - Prescriptions: Dicyclomine [Bentyl] 20 mg PO QID PRN #10 capsule PRN Reason: Abdominal Pain Comments: 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 Take Bentyl as needed hydrate well.
[2020-02-08] MEDS ORDERED: SODIUM CHLORIDE 0.9% 1,000 ML IV STA (22:47)
[2020-02-08] MEDS ORDERED: MORPHINE 2 MG/ML CARPUJECT IVP STA (22:47)
[2020-02-08] MEDS ORDERED: ONDANSETRON 4 MG/2 ML VIAL IVP STA (22:47)
[2020-02-08 23:00] LABS: BASOPHILS # (AUTO) 0.1 10^3/uL (0.0-0.1); BASOPHILS % (AUTO) 0.6 %; EOSINOPHILS # (AUTO) 0.2 10^3/uL (0.0-0.7); EOSINOPHILS % (AUTO) 2.4 %; HGB - HEMOGLOBIN 14.9 g/dL (14.0-18.0); LYMPHOCYTES # (AUTO) 2.9 10^3/uL (1.5-3.5); LYMPHOCYTES % (AUTO) 35.9 %; MEAN CORPUSCULAR HEMOGLOBIN 31.2 pg (27.0-31.0); MEAN CORPUSCULAR HGB CONC 35.6 g/dL (32.0-36.0); MEAN CORPUSCULAR VOLUME 87.8 fL (80.0-94.0); MEAN PLATELET VOLUME 9.9 fL (7.4-11.4); MONOCYTES # (AUTO) 0.7 10^3/uL (0.0-1.0); MONOCYTES % (AUTO) 8.8 %; NEUTROPHILS # (AUTO) 4.2 10^3/uL (1.5-6.6); NEUTROPHILS % (AUTO) 51.8 %; PLT - PLATELET COUNT 225 10^3/uL (130-450); RED BLOOD COUNT 4.77 10^6/uL (4.70-6.10); RED CELL DISTRIBUTION WIDTH 12.6 % (12.0-15.0); WHITE BLOOD COUNT 8.1 x10^3/uL (4.8-10.8)
[2020-02-08 23:04] LABS: PT - PROTHROMBIN TIME 10.9 secs (9.9-12.6)
[2020-02-08 23:11] LABS: ALBUMIN 4.3 g/dL (3.2-5.5); ALBUMIN/GLOBULIN RATIO 1.5 (1.0-2.2); BILIRUBIN,TOTAL 0.8 mg/dL (0.2-1.0); CREATININE 1.3 mg/dL (0.6-1.2); PARTIAL THROMBOPLASTIN TIME 29.8 secs (24.9-33.3); TOTAL PROTEIN 7.2 g/dL (6.7-8.2)
[2020-02-08] MEDS ORDERED: IOVERSOL 320 100 ML VIAL IVP ONE ×2 (23:19→23:50)
[2020-02-09 00:30] VITALS: BP 114/79
[2020-02-09] MEDS ORDERED: DICYCLOMINE 10 MG CAPSULE PO STA (00:33)
--- NOTE | 2020-02-09 08:13 | CT Report ---
Reason: abd pain Procedure Date: 02/08/2020 Accession Number: [id number] / [id number] Procedure: CT - Abdomen/Pelvis W CPT Code: Final Report FULL RESULT: PROCEDURE: Abdomen/Pelvis W INDICATIONS: abd pain CONTRAST: IV CONTRAST: Optiray 320 ml: 100 PO CONTRAST: *NO PO CONTRAST TECHNIQUE: After the administration of oral and intravenous contrast, 5 mm thick sections acquired from the diaphragms to the symphysis. 5 mm thick coronal and sagittal reformats were acquired. For radiation dose reduction, the following was used: automated exposure control, adjustment of mA and/or kV according to patient size. COMPARISON: 01/18/2020, 01/05/2020. FINDINGS: Image quality: Excellent. ABDOMEN: Lung bases: Lung bases are clear. Heart size is normal. Solid organs: Liver and spleen are normal in size and enhancement. Gallbladder is surgically absent Biliary system is non dilated. Pancreas enhances normally. No adrenal nodules. Kidneys demonstrate normal size and enhancement, without hydronephrosis. Peritoneum and bowel: Bowel loops demonstrate normal wall thickness and caliber. No free fluid or air. Appendix is visualized and is within normal limits. A few sigmoid diverticuli are seen, no CT evidence of acute diverticulitis. Nodes and vessels: No retroperitoneal or mesenteric adenopathy by size criteria. Aorta and inferior vena cava are normal in size. Miscellaneous: No ventral hernias. PELVIS: Genitourinary: Bladder wall thickness is normal. Miscellaneous: No inguinal hernias or adenopathy. Bones: No suspicious bony lesions. No vertebral body compression fractures. IMPRESSION: 1. No evidence of acute appendicitis. Sigmoid diverticulosis, no CT evidence of acute diverticulitis. No bowel obstruction. No free fluid or free air. 2. No finding to explain patient's symptoms. Agree with preliminary report. Reviewed by: Marcelino Weinberg MD on 02/09/2020 8:11 AM PDT Approved by: Marcelino Weinberg MD on 02/09/2020 8:11 AM PDT Station ID: [id number]
== END 2020-02-09 01:00 | disposition home or self-care (01) ==
LOC: ED 22:30
DX: K57.30 Diverticulosis of large intestine without perforation or abscess without bleeding (principal); Z87.19 Personal history of other diseases of the digestive system
CPT/HCPCS: 36415; 74177; 80053; 83605; 83690; 85025; 85610; 85730; 96361; 96374; 99284; A9270; Q9967

== ENCOUNTER 2020-02-21 06:06 | Day surgery (SDC) | payer OTHER ==
[2020-02-21] MEDS ORDERED: LACTATED RINGERS 1,000 ML IV ONE (06:19)
[2020-02-21] MEDS ORDERED: LIDO GARGLE 30 ML BOTTLE ONE (07:19)
--- NOTE | 2020-02-21 07:42 | ANESTHESIA ---
Pre-Anesthesia VS, & Labs - Diagnosis diverticulitis and gerd - Procedure EGD and colonoscopy Vital Signs: Temp Pulse Resp BP Pulse Ox 36.5 C 78 18 142/94 H 98 02/21/20 06:20 02/21/20 06:20 02/21/20 06:20 02/21/20 06:20 02/21/20 06:20 Height 5 ft 10 in Weight (kg) 89.3 kg Body Mass Index 28.7 - NPO >8 hours Home Medications and Allergies Home Medications: Ambulatory Orders Omeprazole 20 mg PO DAILY 02/16/20 Omeprazole 20 mg PO DAILY 02/16/20 Allergies/Adverse Reactions: Allergies Allergy/AdvReac Type Severity Reaction Status Date / Time No Known Drug Allergies Allergy Verified 01/18/20 09:22 Anes History & Medical History - Anesthetic History Anesthesia Complications: reports: No previous complications - Medical History Cardiovascular: reports: None Pulmonary: reports: None Gastrointestinal: reports: GERD, Diverticulitis Urinary: reports: None Neuro: reports: None Musculoskeletal: reports: None Endocrine/Autoimmune: reports: None Blood Disorders: reports: None Skin: reports: None Smoking Status: Former smoker (quit 13 years ago) Psychosocial: reports: Alcohol (1 drink per week) - Surgical History General: Cholecystectomy Exam General: Alert, Oriented x3, Cooperative, No acute distress Dental: WNL Mouth Openin Fingerbreadth Neck Mobility: Normal Mallampati classification: I Thyromental Distance: 4-6 cm Respiratory: Lungs clear, Normal breath sounds, No respiratory distress, No accessory muscle use Cardiovascular: Regular rate, Normal S1, Normal S2, No murmurs Mental/Cognitive Status: Alert/Oriented X3, Normal for patient Plan Anesthesia Type: MAC Consent for Procedure(s) Verified and Reviewed: Yes Code Status: Attempt Resuscitation ASA classification: 2-Mild systemic disease Is this case an emergency?: No
[2020-02-21] MEDS ORDERED: PROPOFOL 200 MG/20 ML VIAL IVP ONE (07:50)
[2020-02-21] MEDS ORDERED: fentaNYL 100 MCG/2 ML VIAL IVP ONE (07:50)
[2020-02-21] MEDS ORDERED: MIDAZOLAM 2 MG/2 ML VIAL IVP ONE (07:50)
[2020-02-21 09:21] VITALS: BP 109/75
--- NOTE | 2020-02-21 16:08 | PROVIDER PROGRESS NOTE ---
Subjective - General Procedure Date: 02/21/20 (Status post upper and lower endoscopy) Post Op Days: 0 Procedure Performed: see below - Review of Systems General: positive: Fever, Fatigue HEENT: positive: No symptoms Pulmonary: positive: No symptoms. negative: Shortness of breath, Pleuritic chest pain, Cough Cardiovascular: negative: Chest pain, Palpitations, Dyspnea on exertion Gastrointestinal: positive: Abdominal pain, Other (See below) Genitourinary: positive: No symptoms Musculoskeletal: positive: No symptoms Skin: positive: No symptoms Psychiatric: positive: No symptoms All Other Systems: positive: Reviewed and negative - Other Other Information/Narrative: Focused review of gastrointestinal symptoms: -Stooling: Daily -Pain: Persistent, generalized, with episodes of exacerbation. -Bleeding: Denies -Appetite: Stable -Weight loss/gain: Stable PROCEDURE PERFORMED TODAY: Colonoscopy, diagnostic, with random biopsies of the terminal ileum, colon, and focus biopsies of area of sigmoid stricture; upper endoscopy/EGD with random biopsies of the duodenum, stomach, and focused biopsies of an area of transition, in the setting of historic GERD, consistent with Zamora's In brief this is a 34-year-old male with history of refractory diverticulitis who is undergone multiple CT scans within the last 6 weeks all consistent with disease within the sigmoid colon, initially distal and thereafter migrating proximally involving the mid sigmoid and descending colons. Only past surgical history is laparoscopic cholecystectomy. He underwent colonoscopy today diagnostic. He also has a history of GERD and was performed for upper endoscopy as well. He has had pain on and off for nearly 1 year and has persistently been on antibiotics for 6 weeks. Objective - Patient Data Vital Signs: Vital Signs x48h Temp Pulse Resp BP Pulse Ox 02/21/20 09:15 36.2 C L 63 12 109/75 100 02/21/20 09:10 62 14 109/85 H 100 02/21/20 09:05 36.4 C L 59 L 14 103/76 100 02/21/20 09:00 62 15 101/67 99 02/21/20 08:55 36.0 C L 69 18 101/67 98 Weight: Weight 02/19/20 02/20/20 02/21/20 23:59 23:59 23:59 Weight (kg) 89.3 kg Intake & Output: Intake and Output Totals x24h 02/19/20 02/20/2020 23:59 23:59 23:59 Intake Total 800 Balance 800 - Lab Results Other Lab Results: Lab Results x24hrs 02/21/20 Range/Units 06:50 Blood Type O NEGATIVE Antibody Screen NEGATIVE - Physical Exam General Appearance: positive: No acute distress Eyes Bilateral: positive: Normal inspection, PERRL, EOMI ENT: positive: ENT inspection nml Neck: positive: Nml inspection Respiratory: positive: Chest non-tender, No respiratory distress, Breath sounds nml. negative: Wheezes, Rales, Rhonchi Cardiovascular: positive: Regular rate & rhythm, No murmur, No gallop. negative: Tachycardia Abdomen: positive: No distention, Other (Abdominal Exam: Inspection - Erythema [none]; Scars [trocars well healed from historic laparoscopic cholecystectomy] Auscultation - [Normoactive bowel sounds] Palpation - Hernias [none]; Fluctuance [none]; Induration [none]; Scar [N/A]; soft, nondistended, diffusely tender to palpation, no reboun) ABX Reporting Has patient been on IV antibiotics over the past 48 hours?: Yes Impression/Plan - Problem List Problem List: 34-year-old male with refractory diverticulitis, who on endoscopy showed si gnificant tortuosity of the sigmoid colon with extensive diverticulosis and what is likely a diverticular stricture who has had progressive disease over the last year that has failed nonoperative management with persistent antibiotics over the last 6 to 8 weeks. His circumstances of refractory disease in and of himself to make him an operative candidate given his very young age. The results of today's endoscopy, revealing diverticular laden stricture, is in and of itself an absolute indication to proceed. Given his status, risk of deployment without corrective surgical intervention, and progression to obstruction of stricture as well as exacerbation of his diverticulitis, I would suggest proceeding with urgent intervention potentially with proximal diversion in the setting of a resection and anastomosis. As he has prepped we will maintain clear liquids and proceed with surgery as soon as we are able. Patient was advised of risks as a relates to colectomy including but not limited to, anastomotic leak, injury to local structures including the ureter and nerves, potential for proximal diversion including loop ileostomy, possible conversion to open intervention, need for additional surgeries, as well as the development of postoperative surgical site hernias and infection. Moreover, there were the anesthesia and operative risks of heart attack, stroke, . These conversations also included discussion of possible sexual dysfunction as it relates to retrograde ejaculation amongst others in the setting of anterior resection. We discussed these at length with both the patient and spouse over multiple days. And to reiterate as an active member of the , with refractory diverticular disease, his risk of exacerbation notably in the setting of deployment could very well be life-threatening. Thus plan is as follows: 1. Diagnostic laparoscopy 2. Laparoscopic adhesio lysis 3. Laparoscopic anterior resection 4. Laparoscopic splenic flexure mobilization 5. Rigid proctoscopy 6. Possible Laparoscopic loop ileostomy 7. Tap block per anesthesia 8. Possible Drain placement 9. Possible Open Intervention
== END 2020-02-21 06:07 | disposition home or self-care (01) ==
LOC: SDS 06:06
PROVIDERS: ATTEND Surgery
PROC: 0DB38ZX Excision of Lower Esophagus, Via Natural or Artificial Opening Endoscopic, Diagnostic (ICD-10-PCS; 2020-02-21)
PROC: 0DBB8ZX Excision of Ileum, Via Natural or Artificial Opening Endoscopic, Diagnostic (ICD-10-PCS; 2020-02-21)
PROC: 0DBE8ZX Excision of Large Intestine, Via Natural or Artificial Opening Endoscopic, Diagnostic (ICD-10-PCS; 2020-02-21)
PROC: 0DB98ZX Excision of Duodenum, Via Natural or Artificial Opening Endoscopic, Diagnostic (ICD-10-PCS; principal; 2020-02-21 07:30)
PROC: 0DB68ZX Excision of Stomach, Via Natural or Artificial Opening Endoscopic, Diagnostic (ICD-10-PCS; 2020-02-21 07:30)
DX: Z09 Encounter for follow-up examination after completed treatment for conditions other than malignant neoplasm (principal); K56.699 Other intestinal obstruction unspecified as to partial versus complete obstruction; K22.70 Barrett's esophagus without dysplasia; Z87.19 Personal history of other diseases of the digestive system; Z90.49 Acquired absence of other specified parts of digestive tract; Z80.0 Family history of malignant neoplasm of digestive organs; Z87.891 Personal history of nicotine dependence
CPT/HCPCS: 43239; 45380; 86850; 86900; 86901; 88305; A9270; J7120

== ENCOUNTER 2020-02-22 07:52 | Inpatient (IN) | payer OTHER ==
[2020-02-22] MEDS ORDERED: LACTATED RINGERS 1,000 ML IV ONE ×2 (07:58→11:11)
[2020-02-22] MEDS ORDERED: CEFAZOLIN SODIUM IN 0.9 % NACL 2 GM/100 ML BAG IV ONE (08:04)
--- NOTE | 2020-02-22 08:58 | ANESTHESIA ---
Pre-Anesthesia VS, & Labs - Diagnosis recurrent diverticulitis - Procedure Laparoscopic colectomy Vital Signs: Temp Pulse Resp BP Pulse Ox 36.5 C 81 16 129/85 H 95 02/22/20 08:06 02/22/20 08:06 02/22/20 08:06 02/22/20 08:06 02/22/20 08:06 Height 5 ft 10 in Weight (kg) 89 kg Body Mass Index 28.7 - NPO >8 hours - Lab Results Lab results reviewed: Yes Home Medications and Allergies Active Medications Metronidazole (Flagyl 500 Mg/100 Ml) 500 mg in 100 mls @ 200 mls/hr IV ONCE WILBUR Stop: 02/22/20 11:00 Omeprazole 20 mg PO DAILY 02/16/20 Allergies/Adverse Reactions: Allergies Allergy/AdvReac Type Severity Reaction Status Date / Time No Known Drug Allergies Allergy Verified 01/18/20 09:22 Anes History & Medical History - Anesthetic History Anesthesia Complications: reports: No previous complications Family history of Anesthesia Complications: Denies Family history of Malignant Hyperthermia: Denies - Medical History Cardiovascular: reports: None Pulmonary: reports: None Gastrointestinal: reports: GERD, Diverticulitis Urinary: reports: None Neuro: reports: None Musculoskeletal: reports: None Endocrine/Autoimmune: reports: None Blood Disorders: reports: None Skin: reports: None Smoking Status: Former smoker - Surgical History General: Cholecystectomy, Colonoscopy, EGD Exam General: Alert, Oriented x3, Cooperative Dental: WNL Mouth Openin Fingerbreadth Neck Mobility: Normal Mallampati classification: I Thyromental Distance: greater than 6 cm Respiratory: Lungs clear, Normal breath sounds, No respiratory distress Cardiovascular: Regular rate Neurological: Normal speech Mental/Cognitive Status: Alert/Oriented X3, Normal for patient Cognitive Status: Within normal limits Plan Anesthesia Type: General, Transverse Abdominis Plane (TAP) Block Consent for Procedure(s) Verified and Reviewed: Yes Code Status: Attempt Resuscitation ASA classification: 2-Mild systemic disease Is this case an emergency?: No
[2020-02-22] MEDS ORDERED: metroNIDAZOLE 500 MG/100 ML 500 MG/100 ML BAG IV SCH (09:00)
[2020-02-22] MEDS ORDERED: LIDOCAINE 1%-EPI 1:100000 20 ML MDV ONE (09:12)
[2020-02-22] MEDS ORDERED: ROPIVACAINE 0.5% PF 20 ML AMPULE ONE (09:19)
[2020-02-22] MEDS ORDERED: ONDANSETRON 4 MG/2 ML VIAL IVP ONE (09:32)
[2020-02-22] MEDS ORDERED: ROCURONIUM 50 MG/5 ML VIAL IVP ONE (09:32)
[2020-02-22] MEDS ORDERED: KETOROLAC 30 MG/ML VIAL IVP ONE (09:32)
[2020-02-22] MEDS ORDERED: NEOSTIGMINE 1 MG/1 ML 10 ML MDV IVP ONE (09:32)
[2020-02-22] MEDS ORDERED: fentaNYL 100 MCG/2 ML VIAL IVP ONE (09:32)
[2020-02-22] MEDS ORDERED: GLYCOPYRROLATE 1 MG/5 ML VIAL IVP ONE (09:32)
[2020-02-22] MEDS ORDERED: DEXAMETHASONE 4 MG/ML VIAL IVP ONE (09:32)
[2020-02-22] MEDS ORDERED: ACETAMINOPHEN 1,000 MG/100 ML 100 ML IV ONE (09:32)
[2020-02-22] MEDS ORDERED: LIDOCAINE-MPF 2% 5 ML VIAL IM ONE (09:32)
[2020-02-22] MEDS ORDERED: PROPOFOL 200 MG/20 ML VIAL IVP ONE (09:32)
--- NOTE | 2020-02-22 11:00 | PHARMACY PROGRESS NOTE ---
- Best Possible Medication History Admit Date and Time: 02/22/20 0752 Processed by: Nursing Medication History completed: Yes As the person ultimately responsible for medication therapy, providers are able to order a medication from an existing home medication list in [facility] via the "Reconcile Routine" prior to Confirmation of that medication by learning support specialist. Such practice is discouraged except when the physician, in their clinical judgment, deems that a medical need exists for a medication without regard to previous use.
[2020-02-22] MEDS ORDERED: polyethylene glycoL 3350 17 GM PACKET PO PRN (13:14)
--- NOTE | 2020-02-22 13:29 | OPERATIVE REPORT ---
Operative Report - General Admit Date: 02/22/20 Procedure Date: 02/22/20 Planned Procedure: 1. Diagnostic laparoscopy 2. Laparoscopic adhesio lysis 3. Laparoscopic anterior resection 4. Laparoscopic splenic flexure mobilization 5. Rigid proctoscopy 6. Laparoscopic loop ileostomy 7. Tap block per anesthesia 8. Drain placement Pre-Op Diagnosis: Diverticulitis, medically refractory, diverticular stricture, abd pain Procedure Performed: 1. Diagnostic laparoscopy 2. Laparoscopic adhesio lysis 3. Laparoscopic anterior resection 4. Laparoscopic splenic flexure mobilization 5. Rigid proctoscopy 6. Laparoscopic loop ileostomy 7. Tap block per anesthesia 8. Drain placement Post Op Diagnosis: Same, dense pelvic adhesions, active diverticulitis with induration - Procedure Note Primary Surgeon: Tyrone Secondary Surgeon: Lawrence Anesthesia Provider: Kiki Anesthesia Technique: General ET tube, Regional block Pathology: Rectosigmoid and sigmoid colon Estimated Blood Loss (mL): 75 Drain/Tube Type: Robson drain Indications: Refractory diverticulitis, longstanding symptoms, diverticular stricture, failure of maximal medical therapy, chronic abdominal pain. Findings: Dense pelvic adhesions, significant colonic induration, inked tattoo proximal margin noted within the resection specimen encompassing the diseased, diverticular laden segment, viable anastomosis, however secondary to active diverticular disease, significant tissue induration, and longstanding symptoms, patient was placed for loop ileostomy. Temporary. Complications: None. - Other Other Information/Narrative: Procedure: 1. Diagnostic laparoscopy 2. Laparoscopic adhesiolysis 3. Laparoscopic anterior resection 4. Laparoscopic splenic flexure mobilization 5. Rigid proctoscopy 6. Laparoscopic loop ileostomy 7. Tap block per anesthesia 8. Drain placement Findings: 1. Left Anterior abdominal adhesions along the sigmoid colon. 2. Extensive pelvic adhesions with redundant diverticular laden sigmoid, with site of an sigmoid stricture. 3. No tension, viable, healthy anastomosis from the Descending colon to the upper rectum. 4. Viable loop ileostomy. 5. Active diverticulitis with mural thickening and colonic wall induration. Sigmoid diverticulitis extending to the upper rectum and into the pelvic inlet with changes notable to the left pelvic sidewall. We did a double stapled anastomosis with a 29 EEA without any complication. Extraction site was GelPort and ultimate ileostomy site, no feculent purulent peritonitis noted. Diffuse colonic induration and inflammation however no abscess appreciated. Please note height of the dissection (clearly the upper rectum was visualized given the splaying of taenia). Anastomosis was performed following resection given the stability of the patient and in a setting that was absent diffuse peritonitis. Moreover, given extent of the dissection necessary to achieve a distal margin, the associated inflammatory changes, the diverticular stricture and the known diverticular disease (refractory) proceeded with temporary loop ileostomy. DESCRIPTION OF PROCEDURE: OPERATIVE REPORT: The patient was taken to the operating room, placed supine on the operating table. Informed consent had been already confirmed. The patient was placed for bilateral lower extremity serial compression devices and patient was induced for general endotracheal anesthesia. The patient's legs were placed in Andriy stirrups with both arms tucked and all pressure points padded and protected. The patient was already on an anti-skid foam sharad, and was further taped across chest for added security. Patient was performed for tap block by anesthesia. He was already on scheduled antibiotics for diverticulitis; However we did proceed with perioperative antibiosis with Flagyl, Ancef, and Cipro. Please note the patient was also historically bowel prepped not only with Suprep, however antibiotics were dosed per protocol with both Flagyl and neomycin. Patient had been on clear liquid since colonoscopy the day prior. A time out was called and agreed to by all in the room. Leone catheter was already in place. The patient was thereafter again prepped and draped in the usual sterile fashion for the abdominal portion of this case. Time out was performed and confirmed. Access and insufflation of the abdomen was achieved by open Bob technique, with camera port access located within the umbilicus. Abdomen was extensively irrigated clear. Potential/plan Ileostomy Site was constructed as follows: The left lower quadrant GelPort was placed approximately in the location of an anticipated loop ileostomy as follows. Trephine of skin overlying the right abdominal wall was resected within the triangle that encompassed the umbilicus, the anterior superior iliac spine and the pubis (or as preoperatively marked). Vertical division of the subcutaneous fat to the level of the fascia thereafter was performed with electrocautery. The rectus was bluntly with a Alayna clamp with hemostasis achieved. The posterior fascia/peritoneum was divided protecting the underlying structures. Some bleeding concerning for a branch of the inferior epigastric was encountered during this abdominal access and this was achieved for hemostasis using suture ligature. No further bleeding noted thereafter. All trocar cannulas were placed under direct laparoscopic guidance without any consequential intraabdominal trauma per above. A supraumbilical trocar was placed under direct laparoscopic vision without any complication; a ballooned Telles was placed in this incision. Once adequate insufflation was achieved, the abdomen was inspected and there was no evidence of trauma, stomach was decompressed after OGT placement, and other intraabdominal findings are as listed above: extensive intraabdominal adhesions of the sigmoid colon to the left pelvic sidewall. Thereafter, we opted to proceed with laparoscopic surgery. Trocar placement: Bob Above the umbilicus, left lower quadrant Gel Port, 5mm Suprapubic. Case began with adhesiolysis as follows: Trocars were sequentially placed towards affording appropriate abdominal access for laparoscopic and ultimately Laparoscopic adhesiolysis and enterolysis commences. This was performed in such a way as to maximize exposure and minimize abdominal trauma. We clearly visualized, after appropriate and lengthy laparoscopic adhesiolysis, each trocar placement. Thereafter once appropriate and safe exposure was achieved without any inadvertent injuries or other complicating factors, we proceeded to continue with adhesiolysis to address the patient's extensive intra-abdominal adhesions using sharp Lap dissection, diligent electrocautery, and appropriate countertraction. Please note for multiple reasons as listed above under brief procedural findings, this patient was best suited to minimal access adhesiolysis towards avoiding open intervention, reducing the associated risks thereof, maximizing recovery, minimizing postoperative morbidity and associated stigmata, and enhancing the patient's convalescence towards assuring safe and expeditious ushering into the next step of therapeutic intervention which was crucial given presenting sepsis. This proceeded without any untoward complications, and without any inadvertent injuries or other adverse effect events. With adhesions lysed we proceeded with resection as follows. Along the rectosigmoid mesocolon, the medial peritoneum was incised using the cautery. This was carefully dissected down laterally. The ureter and gonadal vessels were noted and swept down away from colonic mesentery. With this accomplished, and both the ureter and gonadal vessels protected, the inferior mesenteric artery was encircled and divided using EndoGIA vascular staple load, with hemostasis achieved. We proceeded with splenic flexure mobilization taking the lateral peritoneal attachments all the way up affording adequate mobility along with the retroperitoneal attachments carefully minding the location of the ureter and associated structures. No inadvertent injuries or trauma resulted. Once adequate mobility was achieved we proceeded as follows. Once this was completed, we proceeded to continue mobilization of distal rectosigmoid and rectum. The avascular plane between the mesorectum and the presacral space was thereafter entered. This dissection was continued down through to the level of the upper rectum. This was all performed using Ligasure, cautery and countertraction. In addition, the lateral peritoneal reflections of rectum were also divided and ultimately anterior peritoneal reflection of the rectum was divided as well. The mesorectum was then continuously mobilized using Bovie electrocautery. Care was taken not to enter the presacral venous plexus. Please see above findings for the height of the dissection (clearly the upper rectum was visualized given the splaying of taenia) and the specific margins performed during this dissection. Once this was completed with adequate distal margin assured in an appropriately mobilized rectum, the mesorectum was then divided using Ligasure vessel sealing device. With mesorectum divided, and hemostatic, the rectum was appropriately cleared and using Endo-stapling device, the upper rectum was thereafter stapled and divided; again ureters were noted and protected throughout. With the sigmoid colon mobilized and rectum divided, we planned to exteriorize the resection specimen through the GelPort site. With this completed, we exteriorized the specimen, chose an area of viable colon proximal to diseased segment, completely mobilized the splenic flexure laparo scopically with the patient in reverse Trendelenburg position. We then divided the mesentery using the energy device and 2-0 ligatures in the clamp/clamp/cut fashion. We placed a pursestring with 2-0 Prolene and thereafter, the 28 EEA anvil was placed into the lumen. With this completed, anvil was replaced into the abdomen, and proceeded to perform the end to end anastomosis after resufflation by closing the Esau wound ring. Additional mobilization was performed of the peritoneal reflection which allowed, after dividing the peritoneum surrounding rectum, additional distal mobility without any concern for tension. We confirmed no tension at the level of the planned coloproctostomy. The EEA stapler was placed through rectum and once appropriately positioned, the spike thereafter was engaged through the staple line of the rectal stump under direct laparoscopic guidance. The spike was then removed and taken out of the abdomen. This was then mated with the trocar of the anvil and once adequately engaged and the colon checked for orientation without evidence of twist, torsion or tension, the EEA was closed and adequate tension was achieved on meter, it was fired without any complication. Again, ureters, both left and right, were identified and protected throughout the entirety of this case. With the EEA fired, donuts were harvested and both were complete and thereafter we performed insufflation test using rigid proctosigmoidoscope under saline immersion without evidence of bubbles or air leak noted laparoscopically. This was done with pinpoint as well. We laparoscopically placed a Robson drain through the suprapubic port near the anastomosis. The right lower quadrant GelPort was used to mature the ileostomy, loop. Towards maturing the ileostomy, the terminal ileum was brought through the ileostomy site as listed above without torsion or twisting. The wound ring was thereafter removed from the incision, and the fascia was thereafter approximated using a 0 Vicryl in figure of eight fashion to prevent parastomal hernia. It was then matured at the conclusion of this case using multiple interrupted sutures of 2-0 Vicryl sutures placed in such a way as to tack the full thickness of the edge of the ileum to a subcuticular layer of the skin in addition to maturation in the standard Martha ileostomy fashion. An ostomy appliance was ultimately placed. Fascia and surrounding skin was appropriately approximated to accommodate the loop ileostomy, which, as stated, at the end of case was matured in a Martha fashion. 19 Robson drain was laparoscopically placed in the pelvis without complication. All counts for sponges, needles, and instruments were correct at the conclusion of this operative case. All incisions were injected with 0.5% Marcaine. The wounds were dressed with Telfa and Tegaderm. Patient was taken extubated to the PACU in stable condition. Tolerated procedure well for which there was no complication. The ileostomy site was partially closed in order to accommodate a single finger breath prior to maturation. Moreover the umbilical site was closed with multiple [id number]'s of 0 Vicryl followed by umbilicoplasty. Please note that glove change was performed after performing the colon resection and insertion of the anvil. Please also note that maturation of the ileostomy was the last step performed after all other trocar skin and subcutaneous wounds had been closed. Suprapubic trocar was utilized for drain placement. The supraumbilical trocar was closed with a suture passer without any complication. With this complete we closed the skin as follows: skin jaret. All counts for sponges, needles, and instruments were correct at the conclusion of this operative case. The wounds were dressed with 2 x 2 gauze and Tegaderm. Patient was taken extubated to the PACU in stable condition. I was present for the entirety of this operative intervention.
[2020-02-22] MEDS: fentaNYL 100 MCG/2 ML VIAL ONE ×2 (13:38→13:45)
[2020-02-22] MEDS ORDERED: LACTATED RINGERS 1,000 ML IV SCH ×2 (14:00)
[2020-02-22] MEDS: HYDROmorphone 0.5 MG/0.5 ML SYRINGE ONE ×2 (14:11→14:16)
[2020-02-22] MEDS: HYDROmorphone 0.5 MG/0.5 ML SYRINGE IVP PRN ×2 (15:52→21:12)
[2020-02-22] MEDS ORDERED: CIPROFLOXACIN 400 MG/200 ML 400 MG/200 ML BAG IV SCH (17:00)
[2020-02-22 17:12] LABS: BASOPHILS % (AUTO) 0.2 %; HGB - HEMOGLOBIN 14.9 g/dL (14.0-18.0); LYMPHOCYTES # (AUTO) 0.5 10^3/uL (1.5-3.5); LYMPHOCYTES % (AUTO) 3.3 %; MEAN CORPUSCULAR HEMOGLOBIN 31.8 pg (27.0-31.0); MEAN CORPUSCULAR HGB CONC 36.5 g/dL (32.0-36.0); MEAN PLATELET VOLUME 9.6 fL (7.4-11.4); MONOCYTES # (AUTO) 0.7 10^3/uL (0.0-1.0); MONOCYTES % (AUTO) 4.1 %; NEUTROPHILS # (AUTO) 15.2 10^3/uL (1.5-6.6); NEUTROPHILS % (AUTO) 91.8 %; PLT - PLATELET COUNT 237 10^3/uL (130-450); RED BLOOD COUNT 4.69 10^6/uL (4.70-6.10); WHITE BLOOD COUNT 16.6 x10^3/uL (4.8-10.8)
[2020-02-22] MEDS ORDERED: LORazepam 2 MG/ML VIAL IVP PRN (17:19)
[2020-02-22] MEDS: metroNIDAZOLE 500 MG/100 ML 500 MG/100 ML BAG IV SCH (17:20)
[2020-02-22 17:21] LABS: ALBUMIN 3.8 g/dL (3.2-5.5); ALBUMIN/GLOBULIN RATIO 1.4 (1.0-2.2); BILIRUBIN,TOTAL 0.7 mg/dL (0.2-1.0); CALCIUM 8.5 mg/dL (8.5-10.3); CREATININE 1.4 mg/dL (0.6-1.2); TOTAL PROTEIN 6.6 g/dL (6.7-8.2)
--- NOTE | 2020-02-22 17:26 | PROVIDER PROGRESS NOTE ---
Progress Note 34-year-old male, chronic diverticulitis, failing maximal medical therapy, refractory, with diverticular stricture who is status post below listed procedure postoperative day 0. 1. Diagnostic laparoscopy 2. Laparoscopic adhesio lysis 3. Laparoscopic anterior resection 4. Laparoscopic splenic flexure mobilization 5. Rigid proctoscopy 6. Laparoscopic loop ileostomy 7. Tap block per anesthesia 8. Drain placement Patient reports lower back pain. No nausea no vomiting. Labs ordered. Afebrile vital signs are hemodynamically acceptable. Alert awake and oriented x3 Abdomen soft nondistended, no rebound no guarding, drain serosanguineous, ileostomy pink and viable. Labs notable for stable H&H, appropriate leukocytosis in the setting of acute stress response following surgical intervention, electrolytes within normal limits, slight elevation in creatinine from 1.3 preoperatively to 1.4. Postoperative plan is as follows: 1. Opiate sparing analgesia to include [place] of scheduled, Toradol scheduled, Lyrica scheduled, will discontinue Celebrex in the setting of Toradol and DVT prophylaxis. Continue antispasmodic with Robaxin. 2. Will begin Ativan as needed which together with Robaxin should address the patient's lower back spasm. 3. Tap block will hopefully address a fair amount of the patient's somatic pain. 4. Continue with clear liquids, encourage gum chewing and candy, GI prophylaxis. Awaiting resumption of bowel function. 5. Continue antibiotics for history of diverticulitis and refractory disease. 6. Maintain Robson drain, and stoma bolster fito until discharge. 7. Given slight increase in creatinine will maintain Leone and dose 500 cc bolus this is likely prerenal secondary to recent prep and food aversion in the last several weeks. The ureters were clearly and repeatedly identified throughout the entirety of this case.
[2020-02-22] MEDS: methocarbamoL 500 MG TABLET PO SCH (17:47)
[2020-02-22] MEDS: KETOROLAC 30 MG/ML VIAL IVP SCH (17:56)
[2020-02-22] MEDS ORDERED: LACTATED RINGERS 500 ML IV ONE (18:26)
[2020-02-22] MEDS: ACETAMINOPHEN 1,000 MG/100 ML 100 ML IV SCH (19:12)
[2020-02-22 19:13] LABS: HB2 TOTAL 15.4 g/dL; HEMOGLOBIN A1C 0.53 g/dL; HEMOGLOBIN A1C % 5.3 % (4.6-6.2)
[2020-02-22] MEDS: D5NS W/20 MEQ KCL 1,000 ML IV SCH (19:31)
[2020-02-22] MEDS: METOCLOPRAMIDE 10 MG/2 ML VIAL IVP SCH (19:32)
[2020-02-22] MEDS ORDERED: CELECOXIB 100 MG CAPSULE PO SCH (21:00)
[2020-02-22] MEDS: INSULIN ASPART 300 UNIT/3 ML PEN SUBQ SCH (21:09)
[2020-02-22] MEDS: DOCUSATE SODIUM 100 MG CAPSULE PO SCH (21:10)
[2020-02-22] MEDS: PREGABALIN 100 MG CAPSULE PO SCH (21:10)
[2020-02-22] MEDS: CIPROFLOXACIN 400 MG/200 ML 400 MG/200 ML BAG IV SCH (21:11)
[2020-02-23] MEDS: metroNIDAZOLE 500 MG/100 ML 500 MG/100 ML BAG IV SCH ×3 (00:24→16:15)
[2020-02-23] MEDS: methocarbamoL 500 MG TABLET PO SCH ×4 (00:24→18:23)
[2020-02-23] MEDS: KETOROLAC 30 MG/ML VIAL IVP SCH ×4 (00:25→18:23)
[2020-02-23] MEDS: ACETAMINOPHEN 1,000 MG/100 ML 100 ML IV SCH ×3 (02:01→18:23)
[2020-02-23] MEDS: METOCLOPRAMIDE 10 MG/2 ML VIAL IVP SCH ×4 (02:02→18:24)
[2020-02-23 05:47] LABS: BASOPHILS % (AUTO) 0.2 %; EOSINOPHILS % (AUTO) 0.1 %; HGB - HEMOGLOBIN 13.4 g/dL (14.0-18.0); LYMPHOCYTES # (AUTO) 1.1 10^3/uL (1.5-3.5); LYMPHOCYTES % (AUTO) 8.3 %; MEAN CORPUSCULAR HEMOGLOBIN 31.5 pg (27.0-31.0); MEAN CORPUSCULAR HGB CONC 35.5 g/dL (32.0-36.0); MEAN CORPUSCULAR VOLUME 88.5 fL (80.0-94.0); MONOCYTES # (AUTO) 1.4 10^3/uL (0.0-1.0); NEUTROPHILS # (AUTO) 10.4 10^3/uL (1.5-6.6); NEUTROPHILS % (AUTO) 79.9 %; PLT - PLATELET COUNT 270 10^3/uL (130-450); RED BLOOD COUNT 4.26 10^6/uL (4.70-6.10); RED CELL DISTRIBUTION WIDTH 12.3 % (12.0-15.0)
[2020-02-23 06:05] LABS: ALBUMIN 3.3 g/dL (3.2-5.5); ALBUMIN/GLOBULIN RATIO 1.2 (1.0-2.2); BILIRUBIN,TOTAL 0.8 mg/dL (0.2-1.0); CALCIUM 8.4 mg/dL (8.5-10.3); CREATININE 1.2 mg/dL (0.6-1.2); TOTAL PROTEIN 6.1 g/dL (6.7-8.2)
[2020-02-23] MEDS: PANTOPRAZOLE 40 MG TABLET PO SCH (06:36)
[2020-02-23] MEDS: HYDROmorphone 0.5 MG/0.5 ML SYRINGE IVP PRN ×2 (08:14→19:41)
[2020-02-23] MEDS: D5NS W/20 MEQ KCL 1,000 ML IV SCH ×3 (08:14→19:41)
[2020-02-23] MEDS: INSULIN ASPART 300 UNIT/3 ML PEN SUBQ SCH ×4 (08:24→21:20)
[2020-02-23] MEDS: ENOXAPARIN 40 MG/0.4 ML SYRINGE SUBQ SCH (09:41)
[2020-02-23] MEDS: PREGABALIN 100 MG CAPSULE PO SCH ×2 (09:41→21:26)
[2020-02-23] MEDS: DOCUSATE SODIUM 100 MG CAPSULE PO SCH ×2 (09:41→21:26)
[2020-02-23] MEDS: CIPROFLOXACIN 400 MG/200 ML 400 MG/200 ML BAG IV SCH ×2 (09:42→21:26)
--- NOTE | 2020-02-23 10:00 | PROVIDER PROGRESS NOTE ---
Subjective - General Admit Date: 02/22/20 Procedure Date: 02/22/20 Post Op Days: 1 Procedure Performed: Lap colectomy with primary anastomsis - Review of Systems Wound/Incisions: positive: Healing well, Dressing dry and intact Drain Type: Robson Drain Output Description: Serosanguinous General: positive: No symptoms HEENT: positive: No symptoms Pulmonary: positive: No symptoms. negative: Shortness of breath, Pleuritic chest pain, Cough Cardiovascular: positive: No symptoms. negative: Chest pain (Abdomen with positive surgical site pain, positive flatus per stoma and output emptied multiple times. Drain with serosanguineous output.) Genitourinary: positive: No symptoms, Other (Voiding via Leone) Musculoskeletal: positive: No symptoms Skin: positive: No symptoms Objective - Patient Data Vital Signs: Vital Signs x48h Temp Pulse Resp BP Pulse Ox 02/23/20 08:16 36.7 C 63 16 115/66 96 02/23/20 06:00 37.3 C 69 20 113/60 97 Weight: Weight 02/21/20 02/22/20 02/23/20 23:59 23:59 23:59 Weight (kg) 89 kg Intake & Output: Intake and Output Totals x24h 02/21/20 02/22/20 02/23/20 23:59 23:59 23:59 Intake Total 3004.167 1200 Output Total 1575 1605 Balance 1429.167 -405 - Lab Results Lab Results: 02/23/20 05:00 02/23/20 05:00 Other Lab Results: Lab Results x24hrs 02/23/20 02/23/20 02/22/20 Range/Units 05:00 05:00 20:36 WBC 13.0 H (4.8-10.8) x10^3/uL RBC 4.26 L (4.70-6.10) 10^6/uL Hgb 13.4 L (14.0-18.0) g/dL Hct 37.7 L (42.0-52.0) % MCV 88.5 (80.0-94.0) fL MCH 31.5 H (27.0-31.0) pg MCHC 35.5 (32.0-36.0) g/dL RDW 12.3 (12.0-15.0) % Plt Count 270 (130-450) 10^3/uL MPV 10.0 (7.4-11.4) fL Neut # (Auto) 10.4 H (1.5-6.6) 10^3/uL Lymph # (Auto) 1.1 L (1.5-3.5) 10^3/uL [place] # (Auto) 1.4 H (0.0-1.0) 10^3/uL Eos # (Auto) 0.0 (0.0-0.7) 10^3/uL Baso # (Auto) 0.0 (0.0-0.1) 10^3/uL Absolute Nucleated RBC 0.00 x10^3/uL Nucleated RBC % 0.0 /100WBC Sodium 134 L (135-145) mmol/L Potassium 3.8 (3.5-5.0) mmol/L Chloride 102 (101-111) mmol/L Carbon Dioxide 25 (21-32) mmol/L Anion Gap 7.0 (6-13) BUN 13 (6-20) mg/dL Creatinine 1.2 (0.6-1.2) mg/dL Estimated GFR (MDRD) 69 L (>89) Glucose 136 H (70-100) mg/dL POC Whole Bld Glucose 152 H (70 - 100) mg/dL Glycated Hemoglobin (4.6-6.2) % Estim Average Glucose (70-100) Calcium 8.4 L (8.5-10.3) mg/dL Total Bilirubin 0.8 (0.2-1.0) mg/dL AST 20 (10-42) IU/L ALT 25 (10-60) IU/L Alkaline Phosphatase 50 (42-121) IU/L Total Protein 6.1 L (6.7-8.2) g/dL Albumin 3.3 (3.2-5.5) g/dL Globulin 2.8 (2.1-4.2) g/dL Albumin/Globulin Ratio 1.2 (1.0-2.2) 02/22/20 02/22/20 02/22/20 Range/Units 17:49 17:04 17:04 WBC (4.8-10.8) x10^3/uL RBC (4.70-6.10) 10^6/uL Hgb (14.0-18.0) g/dL Hct (42.0-52.0) % MCV (80.0-94.0) fL MCH (27.0-31.0) pg MCHC (32.0-36.0) g/dL RDW (12.0-15.0) % Plt Count (130-450) 10^3/uL MPV (7.4-11.4) fL Neut # (Auto) (1.5-6.6) 10^3/uL Lymph # (Auto) (1.5-3.5) 10^3/uL [place] # (Auto) (0.0-1.0) 10^3/uL Eos # (Auto) (0.0-0.7) 10^3/uL Baso # (Auto) (0.0-0.1) 10^3/uL Absolute Nucleated RBC x10^3/uL Nucleated RBC % /100WBC Sodium 136 (135-145) mmol/L Potassium 4.1 (3.5-5.0) mmol/L Chloride 102 (101-111) mmol/L Carbon Dioxide 26 (21-32) mmol/L Anion Gap 8.0 (6-13) BUN 19 (6-20) mg/dL Creatinine 1.4 H (0.6-1.2) mg/dL Estimated GFR (MDRD) 57 L (>89) Glucose 141 H (70-100) mg/dL POC Whole Bld Glucose 135 H (70 - 100) mg/dL Glycated Hemoglobin 5.3 (4.6-6.2) % Estim Average Glucose 105 H (70-100) Calcium 8.5 (8.5-10.3) mg/dL Total Bilirubin 0.7 (0.2-1.0) mg/dL AST 27 (10-42) IU/L ALT 32 (10-60) IU/L Alkaline Phosphatase 53 (42-121) IU/L Total Protein 6.6 L (6.7-8.2) g/dL Albumin 3.8 (3.2-5.5) g/dL Globulin 2.8 (2.1-4.2) g/dL Albumin/Globulin Ratio 1.4 (1.0-2.2) 02/22/20 Range/Units 17:04 WBC 16.6 H (4.8-10.8) x10^3/uL RBC 4.69 L (4.70-6.10) 10^6/uL Hgb 14.9 (14.0-18.0) g/dL Hct 40.8 L (42.0-52.0) % MCV 87.0 (80.0-94.0) fL MCH 31.8 H (27.0-31.0) pg MCHC 36.5 H (32.0-36.0) g/dL RDW 12.0 (12.0-15.0) % Plt Count 237 (130-450) 10^3/uL MPV 9.6 (7.4-11.4) fL Neut # (Auto) 15.2 H (1.5-6.6) 10^3/uL Lymph # (Auto) 0.5 L (1.5-3.5) 10^3/uL [place] # (Auto) 0.7 (0.0-1.0) 10^3/uL Eos # (Auto) 0.0 (0.0-0.7) 10^3/uL Baso # (Auto) 0.0 (0.0-0.1) 10^3/uL Absolute Nucleated RBC 0.00 x10^3/uL Nucleated RBC % 0.0 /100WBC Sodium (135-145) mmol/L Potassium (3.5-5.0) mmol/L Chloride (101-111) mmol/L Carbon Dioxide (21-32) mmol/L Anion Gap (6-13) BUN (6-20) mg/dL Creatinine (0.6-1.2) mg/dL Estimated GFR (MDRD) (>89) Glucose (70-100) mg/dL POC Whole Bld Glucose (70 - 100) mg/dL Glycated Hemoglobin (4.6-6.2) % Estim Average Glucose (70-100) Calcium (8.5-10.3) mg/dL Total Bilirubin (0.2-1.0) mg/dL AST (10-42) IU/L ALT (10-60) IU/L Alkaline Phosphatase (42-121) IU/L Total Protein (6.7-8.2) g/dL Albumin (3.2-5.5) g/dL Globulin (2.1-4.2) g/dL Albumin/Globulin Ratio (1.0-2.2) - Current Medications Current Medications: Current Medications Generic Name Dose Route Start Last Admin Trade Name Freq PRN Reason Stop Dose Admin Docusate Sodium 100 mg 02/22/20 21:00 02/23/20 09:41 Colace 100mg Capsule PO 100 mg BID WILBUR Administration Enoxaparin Sodium 40 mg 02/23/20 09:00 02/23/20 09:41 Lovenox SUBQ 40 mg DAILY WILBUR Administration Hydromorphone HCl 0.5 mg 02/22/20 15:34 02/23/20 08:14 Dilaudid Inj Syringe IVP 0.5 mg Q2H PRN Administration PAIN 5-10 Metronidazole 500 mg in 100 mls @ 100 mls/hr 02/22/20 16:00 02/23/20 08:00 Flagyl 500 Mg/100 Ml IV 100 mls/hr Q8H WILBUR Administration Ciprofloxacin 400 mg in 200 mls @ 200 mls/hr 02/22/20 22:00 02/23/20 09:42 Cipro 400 Mg/200 Ml IV 200 mls/hr Q12H WILBUR Administration Potassium Chloride/Dextrose/Sod Cl 1,000 mls @ 125 mls/hr 02/22/20 18:00 02/23/20 08:14 IV 125 mls/hr .Q8H WILBUR Administration Insulin Aspart 1 - 5 unit 02/22/20 21:00 02/23/20 08:24 Novolog SUBQ 2 unit 0800,1200,1700,2100 WILBUR Administration Protocol Ketorolac Tromethamine 15 mg 02/22/20 18:00 02/23/20 06:38 Toradol Inj (30mg) IVP 02/27/20 17:59 15 mg Q6HR WILBUR Administration Lorazepam 0.5 mg 02/22/20 17:19 02/22/20 17:39 Ativan Inj (Vial) IVP 0.5 mg Q6H PRN Administration Spasms Methocarbamol 500 mg 02/22/20 18:00 02/23/20 06:36 Robaxin PO 500 mg Q6HR WILBUR Administration Metoclopramide HCl 10 mg 02/22/20 18:00 02/23/20 02:02 Reglan Inj IVP 10 mg Q6HR WILBUR Administration Pantoprazole Sodium 40 mg 02/23/20 07:00 02/23/20 06:36 Protonix PO 40 mg QDAC WILBUR Administration Pregabalin 100 mg 02/22/20 21:00 02/23/20 09:41 Lyrica PO 100 mg BID WILBUR Administration - Physical Exam Wound/Incisions: positive: Healing well, Dressing dry and intact, No drainage General Appearance: positive: No acute distress Eyes Bilateral: positive: Normal inspection, PERRL, EOMI ENT: positive: ENT inspection nml Respiratory: positive: Chest non-tender, No respiratory distress Cardiovascular: positive: Regular rate & rhythm Abdomen: positive: Non-tender (Appropriately tender, no rebound no guarding. Abdominal Exam: Inspection - Erythema none; Scars trocars dressed clean and dry Auscultation -normoactive bowel sounds Palpation - Hernias none; Fluctuance none; Induration none; Scar N/A Stoma pink and productive of gas and stool.) Skin: positive: Color nml Extremities: positive: Non-tender, Full ROM Neurologic/Psychiatric: positive: Oriented x3, CN's nml (2-12) ABX Reporting Has patient been on IV antibiotics over the past 48 hours?: Yes Impression/Plan - Problem List Problem List: 34-year-old male, chronic diverticulitis, failing maximal medical therapy, refractory, with diverticular stricture who is status post below listed procedure postoperative day 1. Had a bowel function. 1. Diagnostic laparoscopy 2. Laparoscopic adhesio lysis 3. Laparoscopic anterior resection 4. Laparoscopic splenic flexure mobilization 5. Rigid proctoscopy 6. Laparoscopic loop ileostomy 7. Tap block per anesthesia 8. Drain placement Postoperative plan is as follows: 1. Opiate sparing analgesia to include intravenous acetaminophen scheduled, Toradol scheduled, Lyrica scheduled. Continue antispasmodic with Robaxin. 2. Will continue Ativan as needed which together with Robaxin should address the patient's lower back spasm. 3. Tap block will hopefully address a fair amount of the patient's somatic pain. 4. Advance to full liquids and soft diet for dinner, encourage gum chewing and candy, GI prophylaxis. Awaiting resumption of bowel function. 5. Continue antibiotics for history of diverticulitis and refractory disease. 6. Maintain Robson drain, and stoma bolster fito until discharge. 7. Improved creatinine will discontinue [place]. The ureters were clearly and repeatedly identified throughout the entirety of this case. Continue IV fluids with potassium. We will give 2 runs of KCl today for repletion. 8. DC planning likely home over the weekend.
[2020-02-23] MEDS: POTASSIUM CHLOR 10 MEQ/100 ML 10 MEQ/100 ML BAG IV SCH ×2 (13:23→14:26)
[2020-02-23] MEDS: oxyCODONE 5 MG TABLET PO PRN (16:14)
[2020-02-24] MEDS: methocarbamoL 500 MG TABLET PO SCH ×4 (00:37→18:19)
[2020-02-24] MEDS: KETOROLAC 30 MG/ML VIAL IVP SCH ×4 (00:37→18:20)
[2020-02-24] MEDS: ACETAMINOPHEN 1,000 MG/100 ML 100 ML IV SCH ×3 (00:38→13:13)
[2020-02-24] MEDS: METOCLOPRAMIDE 10 MG/2 ML VIAL IVP SCH ×3 (01:14→12:02)
[2020-02-24] MEDS: metroNIDAZOLE 500 MG/100 ML 500 MG/100 ML BAG IV SCH ×2 (01:17→07:51)
[2020-02-24] MEDS: D5NS W/20 MEQ KCL 1,000 ML IV SCH (05:53)
[2020-02-24] MEDS: PANTOPRAZOLE 40 MG TABLET PO SCH (06:00)
[2020-02-24] MEDS: INSULIN ASPART 300 UNIT/3 ML PEN SUBQ SCH ×4 (07:52→20:40)
[2020-02-24] MEDS: oxyCODONE 5 MG TABLET PO PRN ×2 (07:55→15:17)
[2020-02-24] MEDS: PREGABALIN 100 MG CAPSULE PO SCH ×2 (08:46→21:00)
[2020-02-24] MEDS: ENOXAPARIN 40 MG/0.4 ML SYRINGE SUBQ SCH (08:46)
[2020-02-24] MEDS: DOCUSATE SODIUM 100 MG CAPSULE PO SCH ×2 (08:47→21:00)
[2020-02-24] MEDS: CIPROFLOXACIN 400 MG/200 ML 400 MG/200 ML BAG IV SCH (10:16)
[2020-02-24] MEDS: HYDROmorphone 0.5 MG/0.5 ML SYRINGE IVP PRN (10:40)
--- NOTE | 2020-02-24 12:44 | PROVIDER PROGRESS NOTE ---
Subjective - General Admit Date: 02/22/20 Procedure Date: 02/22/20 Post Op Days: 2 Procedure Performed: Lap colectomy with primary anastomsis - Review of Systems Wound/Incisions: positive: Healing well, Dressing dry and intact, No drainage Drain Type: Robson Drain Output Description: Serosanguinous General: positive: No symptoms HEENT: positive: No symptoms Pulmonary: positive: No symptoms. negative: Shortness of breath, Pleuritic chest pain, Cough Cardiovascular: positive: No symptoms. negative: Chest pain (Abdomen with positive surgical site pain, positive flatus per stoma and output emptied multiple times. Drain with serosanguineous output.) Gastrointestinal: positive: Abdominal pain, Other (Positive stoma output). negative: Nausea, Vomiting, Difficulty swallowing Genitourinary: positive: No symptoms, Other (Voiding via [place]) Musculoskeletal: positive: No symptoms Skin: positive: No symptoms Psychiatric: positive: No symptoms Objective - Patient Data Vital Signs: Vital Signs x48h Temp Pulse Resp BP Pulse Ox 02/24/20 07:39 36.6 C 59 L 14 119/65 95 02/24/20 05:00 36.6 C 64 16 114/63 98 Weight: Weight 02/22/20 02/23/20 02/24/20 23:59 23:59 23:59 Weight (kg) 89 kg Intake & Output: Intake and Output Totals x24h 02/22/20 02/23/20 02/24/20 23:59 23:59 23:59 Intake Total 3004.167 3780 2067.083 Output Total 1575 3810 975 Balance 1429.167 -30 1092.083 - Lab Results Lab Results: 02/23/20 05:00 02/23/20 05:00 Other Lab Results: Lab Results x24hrs 02/23/20 02/23/20 02/23/20 Range/Units 20:25 16:41 11:34 POC Whole Bld Glucose 122 H 125 H 142 H (70 - 100) mg/dL - Current Medications Current Medications: Current Medications Generic Name Dose Route Start Last Admin Trade Name Freq PRN Reason Stop Dose Admin Docusate Sodium 100 mg 02/22/20 21:00 02/24/20 08:47 Colace 100mg Capsule PO 100 mg BID WILBUR Administration Enoxaparin Sodium 40 mg 02/23/20 09:00 02/24/20 08:46 Lovenox SUBQ 40 mg DAILY WILBUR Administration Hydromorphone HCl 0.5 mg 02/22/20 15:34 02/24/20 10:40 Dilaudid Inj Syringe IVP 0.5 mg Q2H PRN Administration PAIN 5-10 Metronidazole 500 mg in 100 mls @ 100 mls/hr 02/22/20 16:00 02/24/20 08:51 Flagyl 500 Mg/100 Ml IV Infused Q8H WILBUR Infusion Ciprofloxacin 400 mg in 200 mls @ 200 mls/hr 02/22/20 22:00 02/24/20 11:16 Cipro 400 Mg/200 Ml IV Infused Q12H WILBUR Infusion Potassium Chloride/Dextrose/Sod Cl 1,000 mls @ 125 mls/hr 02/22/20 18:00 02/24/20 06:21 IV 125 mls/hr .Q8H WILBUR Infusion Acetaminophen 100 mls @ 400 mls/hr 02/23/20 10:00 02/24/20 06:21 Ofirmev IV Infused Q6HR WILBUR Infusion Insulin Aspart 1 - 5 unit 02/22/20 21:00 02/24/20 07:52 Novolog SUBQ Not Given 0800,1200,1700,2100 [facility] Protocol Ketorolac Tromethamine 15 mg 02/22/20 18:00 02/24/20 12:02 Toradol Inj (30mg) IVP 02/27/20 17:59 15 mg Q6HR WILBUR Administration Lorazepam 0.5 mg 02/22/20 17:19 02/22/20 17:39 Ativan Inj (Vial) IVP 0.5 mg Q6H PRN Administration Spasms Methocarbamol 500 mg 02/22/20 18:00 02/24/20 12:05 Robaxin PO 500 mg Q6HR WILBUR Administration Metoclopramide HCl 10 mg 02/22/20 18:00 02/24/20 12:02 Reglan Inj IVP 10 mg Q6HR WILBUR Administration Oxycodone HCl 5 mg 02/23/20 12:16 02/24/20 07:55 Roxicodone PO 5 mg Q4HR PRN Administration PAIN Pantoprazole Sodium 40 mg 02/23/20 07:00 02/24/20 06:00 Protonix PO 40 mg QDAC WILBUR Administration Pregabalin 100 mg 02/22/20 21:00 02/24/20 08:46 Lyrica PO 100 mg BID WILBUR Administration - Physical Exam Wound/Incisions: positive: Healing well, Dressing dry and intact General Appearance: positive: No acute distress Eyes Bilateral: positive: Normal inspection, PERRL, EOMI Respiratory: positive: Chest non-tender, No respiratory distress Cardiovascular: positive: Regular rate & rhythm Abdomen: positive: Non-tender Skin: positive: Color nml Extremities: positive: Non-tender, Full ROM Neurologic/Psychiatric: positive: Oriented x3, CN's nml (2-12) ABX Reporting Has patient been on IV antibiotics over the past 48 hours?: Yes Impression/Plan - Problem List Problem List: 34 year old male with PMH significant for refractory diverticulitis and associated diverticular stricture. Post operative day #2 from the following surgical procedure - laparoscopic colectomy with primary anastomosis and proximal diverting loop ileostomy. Doing well postoperatively with positive bowel function. Plan going forward is as follows: 1. Discontinue IV fluids, advance diet as tolerated, GI prophylaxis, will modify bowel rate. 2. Opiate sparing analgesia to include Robaxin, Toradol, Lyrica, acetaminophen, will defer Celebrex given currently receiving DVT prophylaxis with heparin subcu together with Toradol for analgesia, add OxyContin for long-acting narcotic. 3. Continue antibiotics in the setting of active diverticulitis, will transition to oral to complete a 10-day course. 4. Replete electrolytes which we will follow daily; we will follow-up today. 5. PT/OT out of bed with ambulation. 6. Likely discharge tomorrow a.m.
[2020-02-24] MEDS ORDERED: metroNIDAZOLE 250 MG TABLET PO SCH (14:00)
[2020-02-24] MEDS ORDERED: ACETAMINOPHEN 325 MG TABLET PO SCH (15:00)
[2020-02-24 15:11] LABS: BASOPHILS % (AUTO) 0.4 %; EOSINOPHILS # (AUTO) 0.1 10^3/uL (0.0-0.7); EOSINOPHILS % (AUTO) 1.6 %; HGB - HEMOGLOBIN 12.7 g/dL (14.0-18.0); LYMPHOCYTES # (AUTO) 1.8 10^3/uL (1.5-3.5); LYMPHOCYTES % (AUTO) 22.6 %; MEAN CORPUSCULAR HEMOGLOBIN 31.5 pg (27.0-31.0); MEAN CORPUSCULAR VOLUME 90.1 fL (80.0-94.0); MEAN PLATELET VOLUME 9.5 fL (7.4-11.4); MONOCYTES # (AUTO) 0.7 10^3/uL (0.0-1.0); MONOCYTES % (AUTO) 9.6 %; NEUTROPHILS % (AUTO) 65.2 %; PLT - PLATELET COUNT 213 10^3/uL (130-450); RED BLOOD COUNT 4.03 10^6/uL (4.70-6.10); RED CELL DISTRIBUTION WIDTH 12.5 % (12.0-15.0); WHITE BLOOD COUNT 7.7 x10^3/uL (4.8-10.8)
[2020-02-24 15:24] LABS: ALBUMIN 3.3 g/dL (3.2-5.5); ALBUMIN/GLOBULIN RATIO 1.4 (1.0-2.2); BILIRUBIN,TOTAL 0.7 mg/dL (0.2-1.0); CALCIUM 8.1 mg/dL (8.5-10.3); TOTAL PROTEIN 5.6 g/dL (6.7-8.2)
--- NOTE | 2020-02-24 15:38 | Discharge Plan ---
Discharge Plan Problem Reviewed?: Yes Disposition: 06 Home Health Service Condition: Good Prescriptions: oxyCODONE [Roxicodone] 5 mg PO Q4HR PRN 14 Days #30 tablet PRN Reason: Pain methocarbamoL [Robaxin] 750 mg PO Q6HR PRN 14 Days #30 tablet PRN Reason: Spasms Ciprofloxacin [Cipro] 250 mg PO BID 7 Days #14 tablet metroNIDAZOLE [Flagyl] 500 mg PO Q8H 7 Days #21 tablet Diphenoxylate/Atropine [Lomotil] 1 each PO BID PRN #50 tablet PRN Reason: Diarrhea Pregabalin [Lyrica] 100 mg PO BID 14 Days #28 capsule oxyCODONE ER [OxyCONTIN] 10 mg PO BID 14 Days #12 tablet Diet: Soft Activity Restrictions: See below Shower Restrictions: Yes (no tub baths, shower OK, no swimming/hot tubs) Driving Restrictions: Yes Instruction Topics: Ileostomy Change Pouch, Ileostomy, Ileostomy Stoma Care Health Concerns: Resolving diverticulitis, postoperative care, ileostomy, fluid status, current narcotic pain management. Plan of Treatment: 34-year-old male, chronic diverticulitis, failing maximal medical therapy, refractory, with diverticular stricture who is status post below listed procedure: 1. Diagnostic laparoscopy 2. Laparoscopic adhesio lysis 3. Laparoscopic anterior resection 4. Laparoscopic splenic flexure mobilization 5. Rigid proctoscopy 6. Laparoscopic loop ileostomy 7. Tap block per anesthesia 8. Drain placement Postoperative plan is as follows: 1. Oxycontin q12 with wean, scheduled, over one week, oxycodone for breakthrough, lyrica, robaxin, acetaminophen; no driving on narcotic. 2. Planned stoma reversal in 6-8wks. 3. Will order lomotil empirically for high output ileostomy. 4. Soft diet, small frequent meals. 5. Continue antibiotics for history of diverticulitis and refractory disease for another 7 days. 6. Will have both Robson drain, and stoma bolster fito removed at discharge. 7. Home care with stoma management and labs weekly; in setting of ileostomy, weekly labs to avoid dehydration, and consequential kidney injury. Additional Instructions or Follow Up instructions: DISCHARGE INSTRUCTIONS TEMPLATE: No heavy lifting, pushing, or pulling. Stairs are allowed, no strenuous/exertional activities. 5-10lbs weight carrying limit (i.e. gallon of milk) If provided, abdominal binder while out of bed and while ambulating. Call or proceed to clinic/ER for fevers, severe pain, nausea, vomiting, inability to pass flatus/stool, bleeding, wound redness/discharge, weakness, excessively loose stool/diarrhea, or for any other reasonably worrisome symptom or concern. Soft diet, no raw vegetables, avoid high fiber foods. Colace 100mg by mouth twice to three times daily while taking narcotic pain medication. If no bowel movement in 24-48hr, may take 17g Miralax in 8oz water twice daily until bowel movement. May shower, no submersive bathing. Follow up in clinic in 2-4 weeks for wound check and staple removal. No driving while taking narcotic pain medications. Follow up with primary care provider and/or medical subspecialist following discharge as well. Monitor ileostomy output, less than 1500 cc/day. Start Lomotil for output greater and notify physician. Weekly CBC and CMP. Call for any worrisome symptoms or concerns. Follow-Up Care: [facility] - Wound/Ostomy No Smoking: If you smoke, Please STOP! Call for help. Follow-up with: Jay Hansen MD [Provider Admit Priv/Credential] -
[2020-02-24] MEDS ORDERED: POTASSIUM CHLORIDE 20 MEQ/15 ML UDC PO SCH (16:00)
[2020-02-24] MEDS: POTASSIUM CHLOR 10 MEQ/100 ML 10 MEQ/100 ML BAG IV SCH ×2 (16:51→17:57)
[2020-02-24] MEDS: metroNIDAZOLE 250 MG TABLET PO SCH (17:11)
[2020-02-24] MEDS: ACETAMINOPHEN 325 MG TABLET PO SCH (18:20)
[2020-02-24] MEDS: CIPROFLOXACIN 250 MG TABLET PO SCH (21:00)
[2020-02-24] MEDS: oxyCODONE ER 10 MG TABLET PO SCH (21:01)
[2020-02-25] MEDS: methocarbamoL 500 MG TABLET PO SCH ×3 (00:19→11:32)
[2020-02-25] MEDS: KETOROLAC 30 MG/ML VIAL IVP SCH ×3 (00:19→11:32)
[2020-02-25] MEDS: metroNIDAZOLE 250 MG TABLET PO SCH ×2 (00:20→08:02)
[2020-02-25] MEDS: ACETAMINOPHEN 325 MG TABLET PO SCH ×3 (01:37→11:32)
[2020-02-25 05:15] LABS: BASOPHILS % (AUTO) 0.3 %; EOSINOPHILS # (AUTO) 0.2 10^3/uL (0.0-0.7); EOSINOPHILS % (AUTO) 3.2 %; HGB - HEMOGLOBIN 13.7 g/dL (14.0-18.0); LYMPHOCYTES # (AUTO) 1.9 10^3/uL (1.5-3.5); LYMPHOCYTES % (AUTO) 24.9 %; MEAN CORPUSCULAR HEMOGLOBIN 31.4 pg (27.0-31.0); MEAN CORPUSCULAR HGB CONC 35.3 g/dL (32.0-36.0); MEAN PLATELET VOLUME 9.6 fL (7.4-11.4); MONOCYTES # (AUTO) 0.8 10^3/uL (0.0-1.0); NEUTROPHILS # (AUTO) 4.6 10^3/uL (1.5-6.6); NEUTROPHILS % (AUTO) 61.1 %; PLT - PLATELET COUNT 235 10^3/uL (130-450); RED BLOOD COUNT 4.36 10^6/uL (4.70-6.10); RED CELL DISTRIBUTION WIDTH 12.3 % (12.0-15.0); WHITE BLOOD COUNT 7.5 x10^3/uL (4.8-10.8)
[2020-02-25 05:27] LABS: ALBUMIN 3.4 g/dL (3.2-5.5); ALBUMIN/GLOBULIN RATIO 1.2 (1.0-2.2); BILIRUBIN,TOTAL 0.7 mg/dL (0.2-1.0); CALCIUM 8.8 mg/dL (8.5-10.3); CREATININE 1.1 mg/dL (0.6-1.2); TOTAL PROTEIN 6.2 g/dL (6.7-8.2)
[2020-02-25] MEDS: PANTOPRAZOLE 40 MG TABLET PO SCH (06:08)
[2020-02-25 07:34] VITALS: BP 122/65
[2020-02-25] MEDS: CIPROFLOXACIN 250 MG TABLET PO SCH (08:02)
[2020-02-25] MEDS: PREGABALIN 100 MG CAPSULE PO SCH (08:03)
[2020-02-25] MEDS: oxyCODONE ER 10 MG TABLET PO SCH (08:03)
[2020-02-25] MEDS: DOCUSATE SODIUM 100 MG CAPSULE PO SCH (08:03)
[2020-02-25] MEDS: ENOXAPARIN 40 MG/0.4 ML SYRINGE SUBQ SCH (08:04)
[2020-02-25] MEDS: INSULIN ASPART 300 UNIT/3 ML PEN SUBQ SCH ×2 (08:05→11:36)
--- NOTE | 2020-02-25 14:07 | DISCHARGE SUMMARY ---
Discharge Summary Admit Date: 02/22/20 Discharge Date: 02/25/20 Discharging Provider: Tyrone Code Status: Attempt Resuscitation Condition at Discharge: Good Discharge Disposition: Home Health Service - DIAGNOSES Admission Diagnoses: 1 - Diverticulitis, acute. 2 - Refractory disease. 3 - Failure medical management. 4 - Diverticular stricture. 5 - History of prior abdominal surgery. 6 - Abdominal pain. Discharge Diagnoses with Status of Each Condition: 1 - Diverticulitis, acute - Resolved. 2 - Refractory disease - Resolved. 3 - Failure medical management - Resolved. 4 - Diverticular stricture - Resolved. 5 - History of prior abdominal surgery - N/A. 6 - Abdominal pain - OTHER THAN POST OP, RESOLVED. 7 - ileostomy placed - persist, pending interval takedown. - HOSPITAL COURSE Hospital Course: Patient admitted with acute diverticulitis. Patient underwent operative intervention as listed in the electronic medical record. Tolerated procedure well for which there was no complication. See below for procedures performed. 1. Diagnostic laparoscopy 2. Laparoscopic adhesio lysis 3. Laparoscopic anterior resection 4. Laparoscopic splenic flexure mobilization 5. Rigid proctoscopy 6. Laparoscopic loop ileostomy 7. Tap block per anesthesia 8. Drain placement Postoperatively the patient was managed for postoperative analgesia and resumption of bowel function. Patient had successfully passed trial of void. Tolerated oral intake without any complication. Denied nausea denied vomiting. Was advanced for diet without any complication. Was counseled that given evidence of diverticular stricture, active diverticulitis, and refractory disease at presentation would recommend continued antibiotics for 1 weeks; patient was maintained on antibiotics during the hospital stay. Patient was removed for the Robson drain, performed for extensive stoma teaching. Was advised of the importance of weekly labs to evaluate for dehydration. Discharge instructions given. Analgesia with OxyContin and oxycodone as well as opiate sparing analgesia provided at time of discharge. Patient plan for follow-up and will be notified of pathology once returned. 6 to 8 weeks would anticipate ileostomy takedown. - ALLERGIES Allergies/Adverse Reactions: Allergies Allergy/AdvReac Type Severity Reaction Status Date / Time No Known Drug Allergies Allergy Verified 01/18/20 09:22 - MEDICATIONS Home Medications: Ambulatory Orders Medication Instructions Recorded Confirmed Omeprazole 20 mg PO DAILY 02/16/20 02/22/20 Acetaminophen [Tylenol] 650 mg PO Q6H tablet 02/24/20 Ciprofloxacin [Cipro] 250 mg PO BID 7 Days #14 tablet 02/24/20 Diphenoxylate/Atropine [Lomotil] 1 each PO BID PRN #50 tablet 02/24/20 Pregabalin [Lyrica] 100 mg PO BID 14 Days #28 capsule 02/24/20 methocarbamoL [Robaxin] 750 mg PO Q6HR PRN 14 Days #30 02/24/20 tablet metroNIDAZOLE [Flagyl] 500 mg PO Q8H 7 Days #21 tablet 02/24/20 oxyCODONE ER [OxyCONTIN] 10 mg PO BID 14 Days #12 tablet 02/24/20 oxyCODONE [Roxicodone] 5 mg PO Q4HR PRN 14 Days #30 tablet 02/24/20 - PHYSICAL EXAM AT DISCHARGE General Appearance: positive: No acute distress Eyes Bilateral: positive: Normal inspection, PERRL, EOMI ENT: positive: ENT inspection nml Neck: positive: Nml inspection Respiratory: positive: Chest non-tender, No respiratory distress Cardiovascular: positive: Regular rate & rhythm Abdomen: positive: No distention (Wounds clean dry and intact, stoma pink and productive bolster removed. Robson drain removed without any complication.), Abnml bowel sounds, Other. negative: Guarding, Rebound Back: positive: Nml inspection Extremities: positive: Non-tender, Full ROM Neurologic/Psychiatric: positive: Oriented x3, CN's nml (2-12) - LABS Result Diagrams: 02/25/20 04:55 02/25/20 04:55 - SEPSIS Current Stage of Sepsis: Resolved Confirmed Source and Organism (if known) of Sepsis: History of diverticulitis with stricture, thus historic abdominal source of sepsis. - FOLLOW UP Follow Up: Follow-up 2 weeks DISCHARGE INSTRUCTIONS TEMPLATE: No heavy lifting, pushing, or pulling. Stairs are allowed, no strenuous/exertional activities. 5-10lbs weight carrying limit (i.e. gallon of m ilk) If provided, abdominal binder while out of bed and while ambulating. Call or proceed to clinic/ER for fevers, severe pain, nausea, vomiting, inability to pass flatus/stool, bleeding, wound redness/discharge, weakness, excessively loose stool/diarrhea, or for any other reasonably worrisome symptom or concern. Soft diet, no raw vegetables, avoid high fiber foods. Colace 100mg by mouth twice to three times daily while taking narcotic pain medication. If no bowel movement in 24-48hr, may take 17g Miralax in 8oz water twice daily until bowel movement. May shower, no submersive bathing. Follow up in clinic in 2-4 weeks for wound check and staple removal. No driving while taking narcotic pain medications. Follow up with primary care provider and/or medical subspecialist following discharge as well. Weekly labs with CBC and CMP to evaluate for fluid status. Antibiotics for 1 additional week. Stoma care advised and home health ordered.
--- NOTE | 2020-02-29 20:00 | MISCELLANEOUS PROVIDER NOTE ---
Miscellaneous Provider Note - - Note: Patient notified of pathology, including the presence of active and chronic inflammation, reinforcing the indication for proximal diversion in the setting of active diverticulitis. Patient notified as well as spouse that there was no evidence of malignancy. Continues with home health care. Home labs pending.
== END 2020-02-25 14:15 | disposition home health service (06) | DRG 331 ==
LOC: MS2 07:52 → MS3 13:06 → MS2 14:13
PROVIDERS: ADMIT Surgery; ATTEND Surgery
PROC: 0D1B4Z4 Bypass Ileum to Cutaneous, Percutaneous Endoscopic Approach (ICD-10-PCS; 2020-02-22)
PROC: 0DNW4ZZ Release Peritoneum, Percutaneous Endoscopic Approach (ICD-10-PCS; 2020-02-22)
PROC: 0DNL4ZZ Release Transverse Colon, Percutaneous Endoscopic Approach (ICD-10-PCS; 2020-02-22)
PROC: 0DTN4ZZ Resection of Sigmoid Colon, Percutaneous Endoscopic Approach (ICD-10-PCS; principal; 2020-02-22 09:00)
DX: K57.32 Diverticulitis of large intestine without perforation or abscess without bleeding (principal); K66.0 Peritoneal adhesions (postprocedural) (postinfection); K21.9 Gastro-esophageal reflux disease without esophagitis; F17.210 Nicotine dependence, cigarettes, uncomplicated
CPT/HCPCS: 36415; 80053; 83036; 85025; A9270; J0131; J0690; J1170; J1650; J2060; J2765; J7120

== ENCOUNTER 2020-03-04 10:30 | Outpatient (CLI) | payer OTHER ==
[2020-03-04 17:55] LABS: BASOPHILS % (AUTO) 0.5 %; EOSINOPHILS # (AUTO) 0.2 10^3/uL (0.0-0.7); EOSINOPHILS % (AUTO) 1.8 %; HGB - HEMOGLOBIN 14.6 g/dL (14.0-18.0); LYMPHOCYTES # (AUTO) 1.7 10^3/uL (1.5-3.5); LYMPHOCYTES % (AUTO) 19.7 %; MEAN CORPUSCULAR HEMOGLOBIN 31.4 pg (27.0-31.0); MEAN CORPUSCULAR HGB CONC 33.6 g/dL (32.0-36.0); MEAN CORPUSCULAR VOLUME 93.3 fL (80.0-94.0); MEAN PLATELET VOLUME 10.1 fL (7.4-11.4); MONOCYTES # (AUTO) 0.9 10^3/uL (0.0-1.0); NEUTROPHILS # (AUTO) 5.9 10^3/uL (1.5-6.6); NEUTROPHILS % (AUTO) 67.2 %; PLT - PLATELET COUNT 304 10^3/uL (130-450); RED BLOOD COUNT 4.65 10^6/uL (4.70-6.10); RED CELL DISTRIBUTION WIDTH 13.2 % (12.0-15.0); WHITE BLOOD COUNT 8.8 x10^3/uL (4.8-10.8)
[2020-03-04 18:17] LABS: ALBUMIN 3.9 g/dL (3.2-5.5); ALBUMIN/GLOBULIN RATIO 1.3 (1.0-2.2); BILIRUBIN,TOTAL 0.7 mg/dL (0.2-1.0); CALCIUM 8.9 mg/dL (8.5-10.3); CREATININE 1.2 mg/dL (0.6-1.2); TOTAL PROTEIN 6.8 g/dL (6.7-8.2)
== END 2020-03-04 23:59 | disposition home or self-care (01) ==
LOC: LAB.WCP 10:30
PROVIDERS: ATTEND Surgery
DX: Z48.815 Encounter for surgical aftercare following surgery on the digestive system (principal)
CPT/HCPCS: 36415; 80053; 85025

== ENCOUNTER 2020-03-15 14:30 | Outpatient (CLI) | payer OTHER ==
[2020-03-15 18:07] LABS: BASOPHILS % (AUTO) 0.3 %; EOSINOPHILS # (AUTO) 0.1 10^3/uL (0.0-0.7); EOSINOPHILS % (AUTO) 1.8 %; HGB - HEMOGLOBIN 14.2 g/dL (14.0-18.0); LYMPHOCYTES # (AUTO) 1.9 10^3/uL (1.5-3.5); LYMPHOCYTES % (AUTO) 30.5 %; MEAN CORPUSCULAR HEMOGLOBIN 31.7 pg (27.0-31.0); MEAN CORPUSCULAR HGB CONC 34.9 g/dL (32.0-36.0); MEAN CORPUSCULAR VOLUME 90.8 fL (80.0-94.0); MEAN PLATELET VOLUME 10.5 fL (7.4-11.4); MONOCYTES # (AUTO) 0.6 10^3/uL (0.0-1.0); MONOCYTES % (AUTO) 9.1 %; NEUTROPHILS # (AUTO) 3.7 10^3/uL (1.5-6.6); NEUTROPHILS % (AUTO) 58.1 %; PLT - PLATELET COUNT 306 10^3/uL (130-450); RED BLOOD COUNT 4.48 10^6/uL (4.70-6.10); RED CELL DISTRIBUTION WIDTH 12.9 % (12.0-15.0); WHITE BLOOD COUNT 6.3 x10^3/uL (4.8-10.8)
[2020-03-15 19:26] LABS: ALBUMIN 4.7 g/dL (3.2-5.5); ALBUMIN/GLOBULIN RATIO 1.9 (1.0-2.2); BILIRUBIN,TOTAL 0.2 mg/dL (0.2-1.0); CALCIUM 9.5 mg/dL (8.5-10.3); CREATININE 1.3 mg/dL (0.6-1.2); TOTAL PROTEIN 7.2 g/dL (6.7-8.2)
== END 2020-03-15 23:59 | disposition home or self-care (01) ==
LOC: LAB.R 14:30
PROVIDERS: ATTEND Surgery
DX: Z48.815 Encounter for surgical aftercare following surgery on the digestive system (principal); Z93.2 Ileostomy status; Z48.01 Encounter for change or removal of surgical wound dressing
CPT/HCPCS: 36415; 80053; 85025

== ENCOUNTER 2020-03-19 11:35 | Outpatient (CLI) | payer OTHER ==
[2020-03-19 18:48] LABS: BASOPHILS % (AUTO) 0.5 %; EOSINOPHILS # (AUTO) 0.1 10^3/uL (0.0-0.7); EOSINOPHILS % (AUTO) 1.7 %; HGB - HEMOGLOBIN 13.4 g/dL (14.0-18.0); LYMPHOCYTES # (AUTO) 1.6 10^3/uL (1.5-3.5); LYMPHOCYTES % (AUTO) 24.2 %; MEAN CORPUSCULAR HEMOGLOBIN 30.9 pg (27.0-31.0); MEAN CORPUSCULAR HGB CONC 33.5 g/dL (32.0-36.0); MEAN CORPUSCULAR VOLUME 92.4 fL (80.0-94.0); MEAN PLATELET VOLUME 10.7 fL (7.4-11.4); MONOCYTES # (AUTO) 0.5 10^3/uL (0.0-1.0); MONOCYTES % (AUTO) 7.9 %; NEUTROPHILS # (AUTO) 4.3 10^3/uL (1.5-6.6); NEUTROPHILS % (AUTO) 64.9 %; PLT - PLATELET COUNT 276 10^3/uL (130-450); RED BLOOD COUNT 4.33 10^6/uL (4.70-6.10); RED CELL DISTRIBUTION WIDTH 13.2 % (12.0-15.0); WHITE BLOOD COUNT 6.6 x10^3/uL (4.8-10.8)
[2020-03-19 19:26] LABS: ALBUMIN 4.1 g/dL (3.2-5.5); ALBUMIN/GLOBULIN RATIO 1.8 (1.0-2.2); BILIRUBIN,TOTAL 0.6 mg/dL (0.2-1.0); CALCIUM 9.1 mg/dL (8.5-10.3); CREATININE 1.2 mg/dL (0.6-1.2); TOTAL PROTEIN 6.4 g/dL (6.7-8.2)
== END 2020-03-19 23:59 | disposition home or self-care (01) ==
LOC: LAB.WCP 11:35
PROVIDERS: ATTEND Surgery
DX: Z48.815 Encounter for surgical aftercare following surgery on the digestive system (principal)
CPT/HCPCS: 36415; 80053; 85025

== ENCOUNTER 2020-03-26 12:43 | Outpatient (CLI) | payer OTHER ==
[2020-03-26 18:12] LABS: BASOPHILS % (AUTO) 0.4 %; EOSINOPHILS # (AUTO) 0.1 10^3/uL (0.0-0.7); EOSINOPHILS % (AUTO) 1.4 %; HGB - HEMOGLOBIN 14.5 g/dL (14.0-18.0); LYMPHOCYTES # (AUTO) 1.4 10^3/uL (1.5-3.5); LYMPHOCYTES % (AUTO) 20.5 %; MEAN CORPUSCULAR HEMOGLOBIN 30.8 pg (27.0-31.0); MEAN CORPUSCULAR HGB CONC 33.3 g/dL (32.0-36.0); MEAN CORPUSCULAR VOLUME 92.6 fL (80.0-94.0); MEAN PLATELET VOLUME 10.2 fL (7.4-11.4); MONOCYTES # (AUTO) 0.5 10^3/uL (0.0-1.0); MONOCYTES % (AUTO) 7.6 %; NEUTROPHILS # (AUTO) 4.9 10^3/uL (1.5-6.6); NEUTROPHILS % (AUTO) 69.8 %; PLT - PLATELET COUNT 301 10^3/uL (130-450); RED BLOOD COUNT 4.71 10^6/uL (4.70-6.10); RED CELL DISTRIBUTION WIDTH 13.4 % (12.0-15.0)
[2020-03-26 19:04] LABS: ALBUMIN 4.5 g/dL (3.2-5.5); ALBUMIN/GLOBULIN RATIO 1.5 (1.0-2.2); BILIRUBIN,TOTAL 0.7 mg/dL (0.2-1.0); CALCIUM 9.4 mg/dL (8.5-10.3); CREATININE 1.3 mg/dL (0.6-1.2); TOTAL PROTEIN 7.5 g/dL (6.7-8.2)
== END 2020-03-26 23:59 | disposition home or self-care (01) ==
LOC: LAB.R 12:43
PROVIDERS: ATTEND Surgery
DX: Z48.815 Encounter for surgical aftercare following surgery on the digestive system (principal); Z93.2 Ileostomy status; Z48.01 Encounter for change or removal of surgical wound dressing
CPT/HCPCS: 80053; 85025

== ENCOUNTER 2020-04-04 11:15 | Outpatient (CLI) | payer OTHER ==
[2020-04-04 11:45] LABS: BASOPHILS % (AUTO) 0.4 %; EOSINOPHILS # (AUTO) 0.1 10^3/uL (0.0-0.7); EOSINOPHILS % (AUTO) 1.2 %; HGB - HEMOGLOBIN 14.3 g/dL (14.0-18.0); LYMPHOCYTES # (AUTO) 1.4 10^3/uL (1.5-3.5); LYMPHOCYTES % (AUTO) 26.7 %; MEAN CORPUSCULAR HEMOGLOBIN 31.5 pg (27.0-31.0); MEAN CORPUSCULAR HGB CONC 36.1 g/dL (32.0-36.0); MEAN CORPUSCULAR VOLUME 87.2 fL (80.0-94.0); MONOCYTES # (AUTO) 0.4 10^3/uL (0.0-1.0); MONOCYTES % (AUTO) 7.2 %; NEUTROPHILS # (AUTO) 3.3 10^3/uL (1.5-6.6); NEUTROPHILS % (AUTO) 64.1 %; PLT - PLATELET COUNT 288 10^3/uL (130-450); RED BLOOD COUNT 4.54 10^6/uL (4.70-6.10); RED CELL DISTRIBUTION WIDTH 12.3 % (12.0-15.0); WHITE BLOOD COUNT 5.2 x10^3/uL (4.8-10.8)
[2020-04-04 12:06] LABS: ALBUMIN 4.5 g/dL (3.2-5.5); ALBUMIN/GLOBULIN RATIO 1.5 (1.0-2.2); BILIRUBIN,TOTAL 1.1 mg/dL (0.2-1.0); CALCIUM 9.3 mg/dL (8.5-10.3); CREATININE 1.2 mg/dL (0.6-1.2); TOTAL PROTEIN 7.5 g/dL (6.7-8.2)
== END 2020-04-04 23:59 | disposition home or self-care (01) ==
LOC: LAB.R 11:15
PROVIDERS: ATTEND Surgery
DX: Z48.815 Encounter for surgical aftercare following surgery on the digestive system (principal); Z93.2 Ileostomy status; Z48.01 Encounter for change or removal of surgical wound dressing
CPT/HCPCS: 80053; 85025

== ENCOUNTER 2020-04-17 06:55 | Day surgery (SDC) | payer OTHER ==
[2020-04-17] MEDS ORDERED: fentaNYL 250 MCG/5 ML VIAL IVP ONE (06:56)
[2020-04-17] MEDS ORDERED: MIDAZOLAM 2 MG/2 ML VIAL IVP ONE (06:56)
[2020-04-17] MEDS ORDERED: LACTATED RINGERS 1,000 ML IV ONE (07:20)
--- NOTE | 2020-04-17 09:14 | HISTORY & PHYSICAL EXAMINATION ---
HPI - Admitted From Admitted from: Other (Home) - History Obtained From Records Reviewed: Old records reviewed History obtained from: Patient Exam limitations: No limitations - History of Present Illness Pain/Problem Location Description: Here for ileostomy takedown workup, to included preoperative colonoscopy PMH/PSH - Past Medical History Cardiovascular: positive: None Respiratory: positive: None Neuro: positive: None Endocrine/Autoimmune: positive: None GI: positive: GERD, Diverticulitis : positive: None HEENT: positive: None Psych: positive: None Musculoskeletal: positive: None Derm: positive: None MRSA Hx?: No - Past Surgical History General: positive: Cholecystectomy, Colonoscopy, EGD Social & Family Hx - Social History Does the pt smoke?: No Smoking Status: Former smoker Does the pt drink ETOH?: Yes Does the pt have substance abuse?: No - POLST Patient has POLST: No Meds/Allgy - Home Medications Home Medications: Ambulatory Orders Medication Instructions Recorded Confirmed Omeprazole 20 mg PO DAILY 02/16/20 02/22/20 Pregabalin [Lyrica] 100 mg PO BID 14 Days #28 capsule 02/24/20 traMADol [Ultram] 100 mg PO Q6H PRN #30 tablet 03/01/20 - Allergies Allergies/Adverse Reactions: Allergies Allergy/AdvReac Type Severity Reaction Status Date / Time No Known Drug Allergies Allergy Verified 01/18/20 09:22 Review of Systems - Constitutional Constitutional: denies: Fatigue - Cardiovascular Cariovascular: denies: Irregular heart rate - Respiratory Respiratory: denies: Cough, Sputum production - Gastrointestinal Gastrointestinal: denies: Abdominal pain, Nausea, Vomiting Exam - Vital Signs Vital Signs: Vital Signs x48h Temp Pulse Resp BP Pulse Ox 04/17/20 07:11 36.2 C L 74 16 133/65 H 100 - Physical Exam General Appearance: positive: No acute distress, Alert, Mild distress Eyes Bilateral: positive: Normal inspection, PERRL, EOMI ENT: positive: ENT inspection nml Neck: positive: Nml inspection Respiratory: positive: Chest non-tender, No respiratory distress, Breath sounds nml. negative: Wheezes, Rales, Rhonchi Cardiovascular: positive: Regular rate & rhythm Abdomen: positive: Non-tender, Other (Stoma pink and productive). negative: Tenderness, Guarding, Rebound Neurologic/Psychiatric: positive: Oriented x3, CN's nml (2-12) Impression/Plan - Problem List Problem List: 34-year-old male with history of complicated diverticulitis status post low anterior resection with proximal diversion laparoscopic with loop ileostomy. Patient presents for ileostomy takedown. As part of his preoperative work-up he is here for postoperative colonoscopy to evaluate the anastomosis. He has no acute complaints. He is overall been feeling well. Is eager for ileostomy takedown. 1. Colonoscopy 2. Risks and benefits discussed 3. Pending results from today proceed with ileostomy takedown.
[2020-04-17 10:09] VITALS: BP 107/71
== END 2020-04-17 06:56 | disposition home or self-care (01) ==
LOC: SDS 06:55
PROVIDERS: ATTEND Surgery
DX: Z09 Encounter for follow-up examination after completed treatment for conditions other than malignant neoplasm (principal); K62.4 Stenosis of anus and rectum; Z93.2 Ileostomy status; K21.9 Gastro-esophageal reflux disease without esophagitis; Z87.19 Personal history of other diseases of the digestive system; Z87.891 Personal history of nicotine dependence
CPT/HCPCS: 45386; J3010; J7120

== ENCOUNTER 2020-04-18 10:32 | Inpatient (IN) | payer OTHER ==
[~2020-04-18 10:32] MED LIST: ACETAMINOPHEN 1,000 MG/100 ML 100 ML IV ONE; CELECOXIB 100 MG CAPSULE PO ONE; DEXAMETHASONE 4 MG/ML VIAL IVP ONE; GABAPENTIN 400 MG CAPSULE ONE; GLYCOPYRROLATE 1 MG/5 ML VIAL IVP ONE; HYDROmorphone 1 MG/ML CARPUJECT IVP ONE; MIDAZOLAM 2 MG/2 ML VIAL IVP ONE; NEOSTIGMINE 1 MG/1 ML 10 ML MDV IVP ONE; ONDANSETRON 4 MG/2 ML VIAL IVP ONE; PROPOFOL 200 MG/20 ML VIAL IVP ONE; ROCURONIUM 50 MG/5 ML VIAL IVP ONE; fentaNYL 100 MCG/2 ML VIAL IVP ONE
[2020-04-18] MEDS ORDERED: BUPIVACAINE 0.5% PF 30 ML VIAL ONE (10:34)
[2020-04-18] MEDS ORDERED: LACTATED RINGERS 1,000 ML IV ONE ×2 (10:35→15:20)
[2020-04-18] MEDS ORDERED: metroNIDAZOLE 500 MG/100 ML 500 MG/100 ML BAG ONE (11:21)
[2020-04-18] MEDS ORDERED: CIPROFLOXACIN 400 MG/200 ML 400 MG/200 ML BAG IV ONE (11:21)
[2020-04-18] MEDS ORDERED: MORPHINE 2 MG/ML CARPUJECT IVP PRN (12:06)
[2020-04-18] MEDS ORDERED: NALOXONE 0.4 MG/ML VIAL IVP PRN (12:06)
[2020-04-18] MEDS ORDERED: ONDANSETRON 4 MG/2 ML VIAL IVP PRN (12:06)
[2020-04-18] MEDS ORDERED: ePHEDrine 50 MG/ML VIAL IVP PRN (12:06)
[2020-04-18] MEDS ORDERED: ATROPINE ABBOJECT 1 MG/10 ML SYRINGE IVP PRN (12:06)
[2020-04-18] MEDS ORDERED: METOCLOPRAMIDE 10 MG/2 ML VIAL IVP PRN (12:06)
--- NOTE | 2020-04-18 12:06 | ANESTHESIA ---
Pre-Anesthesia VS, & Labs - Diagnosis ileostomy present - Procedure ileostomy takedown Vital Signs: Temp Pulse Resp BP Pulse Ox 36.3 C L 87 15 123/83 H 100 04/18/20 10:43 04/18/20 10:43 04/18/20 10:43 04/18/20 10:43 04/18/20 10:43 Height 5 ft 10 in Weight (kg) 87 kg Body Mass Index 28.7 - NPO >8 hours - Lab Results Lab results reviewed: Yes Home Medications and Allergies Omeprazole 20 mg PO DAILY 02/16/20 Allergies/Adverse Reactions: Allergies Allergy/AdvReac Type Severity Reaction Status Date / Time No Known Drug Allergies Allergy Verified 01/18/20 09:22 Anes History & Medical History - Anesthetic History Anesthesia Complications: reports: No previous complications Family history of Anesthesia Complications: Denies - Medical History Cardiovascular: reports: None Pulmonary: reports: None Gastrointestinal: reports: GERD, Diverticulitis Urinary: reports: None Neuro: reports: None Musculoskeletal: reports: None Endocrine/Autoimmune: reports: None Blood Disorders: reports: None Skin: reports: None Smoking Status: Former smoker - Surgical History General: Cholecystectomy, Bowel surgery, Colonoscopy, EGD, Other Exam General: Alert, Oriented x3, Cooperative, No acute distress Dental: WNL Mouth Openin Fingerbreadth Neck Mobility: Normal Mallampati classification: I Respiratory: Lungs clear, Normal breath sounds, No respiratory distress, No accessory muscle use Cardiovascular: Regular rate, Normal S1, Normal S2, No murmurs Plan Anesthesia Type: General, Transverse Abdominis Plane (TAP) Block Regional Block: Per Surgeon's request for Post Op pain control Consent for Procedure(s) Verified and Reviewed: Yes Code Status: Attempt Resuscitation ASA classification: 2-Mild systemic disease Is this case an emergency?: No
[2020-04-18] MEDS ORDERED: ROPIVACAINE 0.5% PF 20 ML AMPULE ONE (12:18)
[2020-04-18] MEDS ORDERED: BUPIVACAINE 0.25% PF 30 ML VIAL ONE (12:19)
[2020-04-18] MEDS ORDERED: LACTATED RINGERS 1,000 ML IV SCH (13:00)
[2020-04-18] MEDS ORDERED: BUPIVACAINE 0.25% PF 30 ML VIAL SUBQ ONE (14:06)
--- NOTE | 2020-04-18 15:11 | OPERATIVE REPORT ---
Operative Report - General Admit Date: 04/18/20 Procedure Date: 04/18/20 Planned Procedure: 1. Ileostomy takedown 2. Small bowel resection 3. Adhesio lysis 4. Wound closure complex 5. Parastomal hernia repair Pre-Op Diagnosis: Diverticulitis, complicated; status post low anterior resection with DLI Procedure Performed: 1. Ileostomy takedown 2. Small bowel resection 3. Adhesio lysis 4. Wound closure complex 5. Parastomal hernia repair Post Op Diagnosis: Same, patent viable anastomosis, sparse adhesions. - Procedure Note Primary Surgeon: Tyrone Secondary Surgeon: Joe Anesthesia Provider: [place] Anesthesia Technique: General ET tube, Local Pathology: Small bowel/ileostomy. Estimated Blood Loss (mL): 25 Drain/Tube Type: Robson drain Indications: Status post low anterior resection for complicated diverticulitis failing maximal medical therapy. Proximately diverted in the setting of active diverticulitis with a loop ileostomy in spite of primary anastomosis. No complications status post lower endoscopy with patent anastomosis requiring mild dilatation [id number]-lrh-[id number] pneumatic to 15 mm. Appropriate for takedown of proximal diverting loop ileostomy. Findings: Dense adhesions in the subcutaneous tissue. Dense adhesions at the level of the terminal ileum along the anterior abdominal wall. Viable healthy margins following small bowel resection. Widely patent, viable, peristaltic and hemostatic. Complications: None - Other Other Information/Narrative: 1. Ileostomy takedown 2. Small bowel resection 3. [id number] functional end-to-end antiperistaltic anastomosis stapled with primary enterotomy closure to layers 4. Parastomal hernia repair 5. Drain placement 6. Tap block TAKEDOWN OF DIVERTING LOOP ILEOSTOMY: The patient was taken to the operating room, placed supine on the operating table (or in Andriy stirru if endoscopy performed), placed for bilateral lower extremity serial compression devices and induced for general endotracheal anesthesia. Patient had already been performed for lower endoscopy the day prior. This was performed with carbon dioxide. The anastomosis was encountered was mildly stenosed to 11 mm. This required pneumatic eiqahnm-niz-khboi dilation which was performed to 15 mm without any complication it was easily traversed with no adverse consequence. Once this was completed, ostomy appliance was taken off the abdomen and using a Vicryl suture, the proximal limb of diverting loop ileostomy was ligated in order to prevent intraoperative spillage. A Leone catheter was placed. The abdomen was prepped and draped in the usual sterile fashion and perioperative antibiotics were given within an hour of surgical incision with Cipro and Flagyl intravenously. If rigid endoscopy was performed, findings are dictated above and also listed elsewhere in this operative note. If diagnostic laparoscopy was performed, findings are listed above and intervention is dictated as well if adhesiolysis was performed elsewhere in this report. Surrounding the diverting loop ileostomy using a scalpel, the mucocutaneous junction was incised outside of the mucus border and this was taken down through to the superficial subcutaneous fat with Bovie electrocautery. Once this was completed, using sharp dissection and Bovie electrocautery the diverting loop ileostomy was dissected free from the surrounding adhesions again sharply with scalpel & Metzenbaum scissors as well as Bovie electrocautery dissection, using great care to avoid injury to the small intestine. This was taken down through to the level of fascia. This was incised and ultimately the ileostomy was freed from its surrounding attachments and any adhesions were appropriately lysed. Additional adhesiolysis was necessary for appropriate prolapse of the diverting loop ileostomy and after this was completed, we chose points of transection and after dividing and ligating the intervening mesentery, the small intestine was divided using a linear cutting stapler with a triple staple line. Dense adhesions were noted at the and anterior abdominal kumar which were performed for careful adhesio lysis sharply with Metzenbaum scissors and sharp scalpel dissection. Bowel was without any hollow viscus injury or serosal tear. Secondary to the degree of the local scar tissue small bowel was resected to grossly normal margins. The ileostomy was sent for permanent pathology. Once this was completed, Allis clamps were placed along the antimesenteric staple lines of both ends. These were incised and divided using curved Medel scissors and thereafter limbs of the linear cutting stapler were placed through both enterotomies and the [id number] anastomosis was created. There was no bleeding, and after the stapler was fired, two seromuscular crotch stitches were placed in order to relieve any tension. Thereafter, the enterotomies were closed in two layers, first with a Cleveland running suture, followed by interrupted Lembert stitches of 2-0 Vicryl. The anastomosis was widely patent, intact, with no ischemic changes noted. At this time we proceeded to close the posterior fascia in a running fashion. Thereafter the parastomal hernia which had historically been noted following loop ileostomy creation was closed uni-directionally with loop PDS without any consequence. At this time the wound was extensively irrigated. Given the elliptical nature of the patient's historic ileostomy site these were closed with APCs with deep dermal sutures. Thereafter we performed a pursestring deep dermal to close the dermal defect. 20 cc of local were administered under direction of anesthesia who would thereafter plan to perform a tap block. A 19 Robson was placed through a historic epigastric trocar site along the anastomosis without any complication. A 2-0 nylon was placed to secure the drain. The ileostomy site was packed with quarter inch plain packing strip continuous. This was dressed with dry sterile gauze. All counts were sponges needles and instruments were correct inclusion of this operative case. Drain was secured to bulb as part of close suction. I was physically present for the entirety of the surgical procedure as indicated above.
[2020-04-18] MEDS: fentaNYL 100 MCG/2 ML VIAL IVP PRN ×2 (15:55→16:04)
[2020-04-18] MEDS: HYDROmorphone 0.5 MG/0.5 ML SYRINGE IVP PRN ×3 (16:00→19:03)
[2020-04-18] MEDS ORDERED: CIPROFLOXACIN 400 MG/200 ML 400 MG/200 ML BAG IV SCH (16:00)
[2020-04-18] MEDS ORDERED: fentaNYL 100 MCG/2 ML VIAL ONE (16:00)
[2020-04-18] MEDS ORDERED: HYDROmorphone 1 MG/ML CARPUJECT ONE (16:04)
[2020-04-18] MEDS: PANTOPRAZOLE 40 MG TABLET PO SCH (16:58)
--- NOTE | 2020-04-18 16:59 | ANESTHESIA POST OP EVALUATION ---
Anesthesia Post Eval - Post Anesthesia Eval Vitals: Last Vital Signs Temp 36.5 C 04/18/20 16:30 Pulse 65 04/18/20 16:30 Resp 14 04/18/20 16:30 BP 131/78 H 04/18/20 16:30 Pulse Ox 100 04/18/20 16:30 CV Function Including HR & BP: positive: Stable Pain Control: positive: Satisfactory Nausea & Vomiting: positive: Negative Mental Status: positive: Patient Participates Respiratory Status: Airway Patent Hydration Status: Satisfactory Anesthesia Complications: positive: None
[2020-04-18] MEDS ORDERED: ACETAMINOPHEN 1,000 MG/100 ML 100 ML IV ONE ×2 (17:00→18:00)
[2020-04-18] MEDS: D5NS W/20 MEQ KCL 1,000 ML IV SCH (17:00)
[2020-04-18] MEDS: methocarbamoL 500 MG TABLET PO SCH (18:43)
[2020-04-18] MEDS: KETOROLAC 30 MG/ML VIAL IVP SCH ×2 (18:44→23:47)
[2020-04-18] MEDS: METOCLOPRAMIDE 10 MG/2 ML VIAL IVP SCH ×2 (18:44→23:47)
[2020-04-18] MEDS: metroNIDAZOLE 500 MG/100 ML 500 MG/100 ML BAG IV SCH (21:02)
[2020-04-18] MEDS: DOCUSATE SODIUM 100 MG CAPSULE PO SCH (21:03)
[2020-04-18] MEDS: polyethylene glycoL 3350 17 GM PACKET PO SCH (21:03)
[2020-04-18] MEDS: CIPROFLOXACIN 400 MG/200 ML 400 MG/200 ML BAG IV SCH (23:47)
[2020-04-19] MEDS: methocarbamoL 500 MG TABLET PO SCH ×4 (00:01→18:15)
[2020-04-19] MEDS: D5NS W/20 MEQ KCL 1,000 ML IV SCH ×4 (03:14→22:06)
[2020-04-19] MEDS: metroNIDAZOLE 500 MG/100 ML 500 MG/100 ML BAG IV SCH ×2 (04:28→13:21)
[2020-04-19] MEDS: HYDROmorphone 0.5 MG/0.5 ML SYRINGE IVP PRN ×6 (05:07→21:19)
[2020-04-19 05:31] LABS: BASOPHILS % (AUTO) 0.2 %; EOSINOPHILS % (AUTO) 0.3 %; HGB - HEMOGLOBIN 12.8 g/dL (14.0-18.0); LYMPHOCYTES # (AUTO) 1.2 10^3/uL (1.5-3.5); MEAN CORPUSCULAR HEMOGLOBIN 31.5 pg (27.0-31.0); MEAN CORPUSCULAR HGB CONC 35.1 g/dL (32.0-36.0); MEAN CORPUSCULAR VOLUME 89.9 fL (80.0-94.0); MEAN PLATELET VOLUME 10.4 fL (7.4-11.4); MONOCYTES # (AUTO) 0.9 10^3/uL (0.0-1.0); MONOCYTES % (AUTO) 7.5 %; NEUTROPHILS # (AUTO) 9.8 10^3/uL (1.5-6.6); NEUTROPHILS % (AUTO) 81.5 %; PLT - PLATELET COUNT 250 10^3/uL (130-450); RED BLOOD COUNT 4.06 10^6/uL (4.70-6.10); RED CELL DISTRIBUTION WIDTH 12.9 % (12.0-15.0)
[2020-04-19 05:45] LABS: ALBUMIN 3.6 g/dL (3.2-5.5); ALBUMIN/GLOBULIN RATIO 1.6 (1.0-2.2); BILIRUBIN,TOTAL 0.6 mg/dL (0.2-1.0); CALCIUM 8.7 mg/dL (8.5-10.3); CREATININE 1.2 mg/dL (0.6-1.2); TOTAL PROTEIN 5.9 g/dL (6.7-8.2)
[2020-04-19] MEDS: METOCLOPRAMIDE 10 MG/2 ML VIAL IVP SCH ×3 (06:33→18:16)
[2020-04-19] MEDS: PANTOPRAZOLE 40 MG TABLET PO SCH (06:33)
[2020-04-19] MEDS: KETOROLAC 30 MG/ML VIAL IVP SCH ×3 (06:33→18:16)
[2020-04-19] MEDS: oxyCODONE 5 MG TABLET PO PRN ×3 (09:08→21:01)
[2020-04-19] MEDS: ENOXAPARIN 40 MG/0.4 ML SYRINGE SUBQ SCH (09:08)
[2020-04-19] MEDS: polyethylene glycoL 3350 17 GM PACKET PO SCH ×2 (09:09→21:01)
[2020-04-19] MEDS: DOCUSATE SODIUM 100 MG CAPSULE PO SCH ×2 (09:10→21:01)
[2020-04-19] MEDS: CIPROFLOXACIN 400 MG/200 ML 400 MG/200 ML BAG IV SCH (11:09)
--- NOTE | 2020-04-19 12:24 | PHARMACY PROGRESS NOTE ---
- Best Possible Medication History Admit Date and Time: 04/18/20 1032 Processed by: Pharmacy Medication History completed: Yes Patient Interview: Completed Secondary Source(s): Pharmacy records (PATIENT INTERVIEWED BY PHARMACY. PATIENT ABLE TO CONFIRM HOME MEDICATIONS ), Insurance records As the person ultimately responsible for medication therapy, providers are able to order a medication from an existing home medication list in [facility] via the "Reconcile Routine" prior to Confirmation of that medication by child support agent. Such practice is discouraged except when the physician, in their clinical judgment, deems that a medical need exists for a medication without regard to previous use.
--- NOTE | 2020-04-19 17:20 | PROVIDER PROGRESS NOTE ---
Subjective - General Admit Date: 04/18/20 Procedure Date: 04/18/20 (POST OPERATIVE DAY #1) Post Op Days: 2 Procedure Performed: See below: - Review of Systems Wound/Incisions: positive: Healing well, Dressing dry and intact, No drainage, Drainage, Other. negative: Erythema Drain Type: Robson Drain Output Description: Serosanguinous General: positive: No symptoms HEENT: positive: No symptoms Pulmonary: positive: No symptoms, Sputum. negative: Shortness of breath, Pleuritic chest pain, Cough Cardiovascular: positive: No symptoms. negative: Chest pain Gastrointestinal: positive: Abdominal pain, Other (Abdominal pain as expected). negative: Nausea, Vomiting Genitourinary: positive: No symptoms, Other (Voiding spontaneously) - Other Other Information/Narrative: 1. Ileostomy takedown 2. Small bowel resection 3. [id number] functional end-to-end antiperistaltic anastomosis stapled with primary enterotomy closure to layers 4. Parastomal hernia repair 5. Drain placement 6. Tap block Objective - Patient Data Reviewed Vital Signs: Yes Vital Signs: Vital Signs x48h Temp Pulse Resp BP Pulse Ox 04/19/20 16:00 37.0 C 70 18 126/69 95 04/19/20 12:00 36.9 C 76 16 121/76 95 Weight: Weight 04/17/20 04/18/20 04/19/20 23:59 23:59 23:59 Weight (kg) 87 kg Intake & Output: Intake and Output Totals x24h 04/17/20 04/18/20 04/19/20 23:59 23:59 23:59 Intake Total 036.807 7689.25 Output Total 670 1060 Balance 956.436 8271.25 - Lab Results Lab Results: 04/19/20 04:55 04/19/20 04:55 Other Lab Results: Lab Results x24hrs 04/19/20 04/19/20 04/19/20 Range/Units 16:21 11:32 07:38 WBC (4.8-10.8) x10^3/uL RBC (4.70-6.10) 10^6/uL Hgb (14.0-18.0) g/dL Hct (42.0-52.0) % MCV (80.0-94.0) fL MCH (27.0-31.0) pg MCHC (32.0-36.0) g/dL RDW (12.0-15.0) % Plt Count (130-450) 10^3/uL MPV (7.4-11.4) fL Neut # (Auto) (1.5-6.6) 10^3/uL Lymph # (Auto) (1.5-3.5) 10^3/uL Stoddard # (Auto) (0.0-1.0) 10^3/uL Eos # (Auto) (0.0-0.7) 10^3/uL Baso # (Auto) (0.0-0.1) 10^3/uL Absolute Nucleated RBC x10^3/uL Nucleated RBC % /100WBC Sodium (135-145) mmol/L Potassium (3.5-5.0) mmol/L Chloride (101-111) mmol/L Carbon Dioxide (21-32) mmol/L Anion Gap (6-13) BUN (6-20) mg/dL Creatinine (0.6-1.2) mg/dL Estimated GFR (MDRD) (>89) Glucose (70-100) mg/dL POC Whole Bld Glucose 88 108 H 145 H (70 - 100) mg/dL Calcium (8.5-10.3) mg/dL Total Bilirubin (0.2-1.0) mg/dL AST (10-42) IU/L ALT (10-60) IU/L Alkaline Phosphatase (42-121) IU/L Total Protein (6.7-8.2) g/dL Albumin (3.2-5.5) g/dL Globulin (2.1-4.2) g/dL Albumin/Globulin Ratio (1.0-2.2) 04/19/20 04/19/20 04/18/20 Range/Units 04:55 04:55 20:38 WBC 12.0 H (4.8-10.8) x10^3/uL RBC 4.06 L (4.70-6.10) 10^6/uL Hgb 12.8 L (14.0-18.0) g/dL Hct 36.5 L (42.0-52.0) % MCV 89.9 (80.0-94.0) fL MCH 31.5 H (27.0-31.0) pg MCHC 35.1 (32.0-36.0) g/dL RDW 12.9 (12.0-15.0) % Plt Count 250 (130-450) 10^3/uL MPV 10.4 (7.4-11.4) fL Neut # (Auto) 9.8 H (1.5-6.6) 10^3/uL Lymph # (Auto) 1.2 L (1.5-3.5) 10^3/uL Stoddard # (Auto) 0.9 (0.0-1.0) 10^3/uL Eos # (Auto) 0.0 (0.0-0.7) 10^3/uL Baso # (Auto) 0.0 (0.0-0.1) 10^3/uL Absolute Nucleated RBC 0.00 x10^3/uL Nucleated RBC % 0.0 /100WBC Sodium 137 (135-145) mmol/L Potassium 3.9 (3.5-5.0) mmol/L Chloride 106 (101-111) mmol/L Carbon Dioxide 24 (21-32) mmol/L Anion Gap 7.0 (6-13) BUN 13 (6-20) mg/dL Creatinine 1.2 (0.6-1.2) mg/dL Estimated GFR (MDRD) 69 L (>89) Glucose 131 H (70-100) mg/dL POC Whole Bld Glucose 143 H (70 - 100) mg/dL Calcium 8.7 (8.5-10.3) mg/dL Total Bilirubin 0.6 (0.2-1.0) mg/dL AST 24 (10-42) IU/L ALT 49 (10-60) IU/L Alkaline Phosphatase 59 (42-121) IU/L Total Protein 5.9 L (6.7-8.2) g/dL Albumin 3.6 (3.2-5.5) g/dL Globulin 2.3 (2.1-4.2) g/dL Albumin/Globulin Ratio 1.6 (1.0-2.2) - Current Medications Current Medications: Current Medications Generic Name Dose Route Start Last Admin Trade Name Freq PRN Reason Stop Dose Admin Docusate Sodium 100 mg 04/18/20 21:00 04/19/20 09:10 Colace 100mg Capsule PO Not Given BID [facility] Enoxaparin Sodium 40 mg 04/19/20 09:00 04/19/20 09:08 Lovenox SUBQ 40 mg DAILY WILBUR Administration Hydromorphone HCl 0.5 mg 04/18/20 15:27 04/19/20 15:37 Dilaudid Inj Syringe IVP 0.5 mg Q2H PRN Administration PAIN Potassium Chloride/Dextrose/Sod Cl 1,000 mls @ 125 mls/hr 04/18/20 16:00 04/19/20 14:48 IV 125 mls/hr .Q8H WILBUR Administration Ketorolac Tromethamine 15 mg 04/18/20 18:00 04/19/20 11:05 Toradol Inj (30mg) IVP 04/23/20 17:59 15 mg Q6HR WILBUR Administration Methocarbamol 500 mg 04/18/20 18:00 04/19/20 11:05 Robaxin PO 500 mg Q6HR WILBUR Administration Metoclopramide HCl 10 mg 04/18/20 18:00 04/19/20 11:06 Reglan Inj IVP 10 mg Q6HR WILBUR Administration Oxycodone HCl 5 mg 04/18/20 15:27 04/19/20 16:53 Roxicodone PO 5 mg Q4HR PRN Administration PAIN Pantoprazole Sodium 40 mg 04/18/20 16:00 04/19/20 06:33 Protonix PO 40 mg QDAC WILBUR Administration Polyethylene Glycol 17 gm 04/18/20 21:00 04/19/20 09:09 Miralax PO Not Given BID [facility] - Physical Exam Wound/Incisions: positive: Healing well, Dressing dry and intact, Other (Wound packing changed, serosanguineous drainage, iodophor packing to historic ileostomy site 1 continuous drip, tolerated well, dry sterile gauze top dressing.) General Appearance: positive: No acute distress Eyes Bilateral: positive: Normal inspection ENT: positive: ENT inspection nml Neck: positive: Nml inspection Respiratory: positive: Chest non-tender, No respiratory distress, Breath sounds nml. negative: Wheezes, Rales, Rhonchi Cardiovascular: positive: Regular rate & rhythm Abdomen: positive: No distention, Tenderness, Other (Soft nondistended, appropr iately tender to palpation, CORDELL/Robson with serosanguineous drainage, historic ileostomy site with serosanguineous drainage.). negative: Guarding, Rebound Extremities: positive: Non-tender, Full ROM, Nml appearance Neurologic/Psychiatric: positive: Oriented x3, CN's nml (2-12) ABX Reporting Has patient been on IV antibiotics over the past 48 hours?: No Impression/Plan - Problem List Problem List: POD #2 s/p listed procedue (ileostomy reversal, small bowel resection, parastomal hernia repair, tap block, amongst others). History of complicated diverticulitis for which he underwent low anterior resection, laparoscopic, with proximal diverting loop ileostomy. Doing well. Postoperatively with no acute complaints, pain well controlled, awaiting resumption of bowel function. (1) GI - IVF, bowel agents/bowel regimen. GI ppx. Anticipate ileus. Opiate sparring analgesia. (2) SURGERY - [Continue CORDELL.] Abdominal binder. Wound care [continue packing historic stoma site]. (3) Renal/Lytes - continue IVF. Renal indices within normal limits. (4) Respiratory - O2 as necessary. Continue IS. (5) Heme - Will continue with DVT ppx. [H/H stable]. (6) Cardiovascular - HD acceptable. (7) Neuro - Opiate sparring analgesia. Antispasmodics with Robaxin. Toradol. Neuropathic agents. (8) Will need home wound care, likely discharge within 24 to 48 hours of resumption of bowel function.
[2020-04-20] MEDS: KETOROLAC 30 MG/ML VIAL IVP SCH ×4 (00:25→18:02)
[2020-04-20] MEDS: methocarbamoL 500 MG TABLET PO SCH ×5 (00:25→22:21)
[2020-04-20] MEDS: METOCLOPRAMIDE 10 MG/2 ML VIAL IVP SCH ×4 (00:25→18:03)
[2020-04-20] MEDS: oxyCODONE 5 MG TABLET PO PRN ×3 (01:10→21:23)
[2020-04-20] MEDS: HYDROmorphone 0.5 MG/0.5 ML SYRINGE IVP PRN ×4 (04:06→20:29)
[2020-04-20] MEDS: D5NS W/20 MEQ KCL 1,000 ML IV SCH ×3 (05:36→21:23)
[2020-04-20] MEDS: PANTOPRAZOLE 40 MG TABLET PO SCH (06:44)
[2020-04-20] MEDS: ENOXAPARIN 40 MG/0.4 ML SYRINGE SUBQ SCH (08:47)
[2020-04-20] MEDS: DOCUSATE SODIUM 100 MG CAPSULE PO SCH ×2 (08:47→20:29)
[2020-04-20] MEDS: polyethylene glycoL 3350 17 GM PACKET PO SCH ×2 (08:49→20:29)
--- NOTE | 2020-04-20 13:38 | PROVIDER PROGRESS NOTE ---
Subjective - General Admit Date: 04/18/20 Procedure Date: 04/18/20 (Postoperative day #2) Post Op Days: 2 - Review of Systems Wound/Incisions: positive: Healing well, Dressing dry and intact, No drainage, Other (Historic ileostomy site change for its packing, clean dry and intact, no erythema, no induration, no purulent discharge.) Drain Type: Robson Drain Output Description: serous General: positive: No symptoms HEENT: positive: No symptoms Pulmonary: positive: No symptoms. negative: Shortness of breath, Pleuritic chest pain Cardiovascular: positive: No symptoms. negative: Chest pain, Palpitations Gastrointestinal: positive: No symptoms, Abdominal pain. negative: Nausea, Vomiting Genitourinary: positive: No symptoms, Other (Voiding on his own.) Musculoskeletal: positive: No symptoms Skin: positive: No symptoms Psychiatric: positive: No symptoms - Other Other Information/Narrative: 1. Ileostomy takedown 2. Small bowel resection 3. [id number] functional end-to-end antiperistaltic anastomosis stapled with primary enterotomy closure to layers 4. Parastomal hernia repair 5. Drain placement 6. Tap block Objective - Patient Data Vital Signs: Vital Signs x48h Temp Pulse Resp BP Pulse Ox 04/20/20 13:00 37.1 C 92 13 137/74 H 97 04/20/20 09:00 37.0 C 80 16 126/69 97 04/20/20 05:49 37.2 C 86 17 130/77 96 Weight: Weight 04/18/20 04/19/20 04/20/20 23:59 23:59 23:59 Weight (kg) 87 kg Intake & Output: Intake and Output Totals x24h 04/18/20 04/19/20 04/20/20 23:59 23:59 23:59 Intake Total 848.843 0410.667 1339.583 Output Total 670 2130 755 Balance 319.524 0426.667 584.583 - Lab Results Lab Results: 04/19/20 04:55 04/19/20 04:55 Other Lab Results: Lab Results x24hrs 04/20/20 04/20/20 04/19/20 Range/Units 11:29 07:29 20:25 POC Whole Bld Glucose 108 H 107 H 107 H (70 - 100) mg/dL 04/19/20 Range/Units 16:21 POC Whole Bld Glucose 88 (70 - 100) mg/dL - Current Medications Current Medications: Current Medications Generic Name Dose Route Start Last Admin Trade Name Freq PRN Reason Stop Dose Admin Docusate Sodium 100 mg 04/18/20 21:00 04/20/20 08:47 Colace 100mg Capsule PO 100 mg BID WILBUR Administration Enoxaparin Sodium 40 mg 04/19/20 09:00 04/20/20 08:47 Lovenox SUBQ 40 mg DAILY WILBUR Administration Hydromorphone HCl 0.5 mg 04/18/20 15:27 04/20/20 08:46 Dilaudid Inj Syringe IVP 0.5 mg Q2H PRN Administration PAIN Potassium Chloride/Dextrose/Sod Cl 1,000 mls @ 125 mls/hr 04/18/20 16:00 04/20/20 05:36 IV 125 mls/hr .Q8H WILBUR Administration Ketorolac Tromethamine 15 mg 04/18/20 18:00 04/20/20 12:30 Toradol Inj (30mg) IVP 04/23/20 17:59 15 mg Q6HR WILBUR Administration Methocarbamol 500 mg 04/18/20 18:00 04/20/20 12:33 Robaxin PO 500 mg Q6HR WILBUR Administration Metoclopramide HCl 10 mg 04/18/20 18:00 04/20/20 12:18 Reglan Inj IVP 10 mg Q6HR WILBUR Administration Oxycodone HCl 5 mg 04/18/20 15:27 04/20/20 06:44 Roxicodone PO 5 mg Q4HR PRN Administration PAIN Pantoprazole Sodium 40 mg 04/18/20 16:00 04/20/20 06:44 Protonix PO 40 mg QDAC WILBUR Administration Polyethylene Glycol 17 gm 04/18/20 21:00 04/20/20 08:49 Miralax PO Not Given BID [facility] - Physical Exam Wound/Incisions: positive: Healing well, Dressing dry and intact, No drainage General Appearance: positive: No acute distress Eyes Bilateral: positive: Normal inspection ENT: positive: ENT inspection nml Neck: positive: Nml inspection Respiratory: positive: Chest non-tender, No respiratory distress, Breath sounds nml. negative: Wheezes, Rales, Rhonchi Cardiovascular: positive: Regular rate & rhythm Abdomen: positive: No distention, Other. negative: Guarding, Rebound Extremities: positive: Non-tender, Full ROM, Nml appearance Neurologic/Psychiatric: positive: Oriented x3, CN's nml (2-12) Impression/Plan - Problem List Problem List: POD #3 s/p listed procedue (ileostomy reversal, small bowel resection, parastomal hernia repair, tap block, other indicated/assorted procedures). History of complicated diverticulitis status post laparoscopic low anterior resection with proximal diversion. Doing well. Ileus with slow resumption of bowel function. (1) GI - IVF, bowel regimen, advance diet as tolerated. GI ppx. Anticipate ileus. Opiate sparring analgesia. (2) SURGERY -continue CORDELL. Abdominal binder. Wound care continue packing historic stoma site. (3) Renal/Lytes - continue IVF. Renal indices within normal limits. (4) Respiratory - O2 as necessary. Continue IS. (5) Heme - Will continue with DVT ppx. H/H stable. (6) Cardiovascular - HD acceptable. (7) Neuro - Opiate sparring analgesia. Antispasmodics with Robaxin. Toradol. Neuropathic agents. (8) WOUND care -will need to be discharged with home packing strips to historic ileostomy site.
--- NOTE | 2020-04-20 19:20 | PROVIDER PROGRESS NOTE ---
Progress Note Subjective General Admit Date: 04/18/20 Procedure Date: 04/18/20 (Postoperative day #3) Post Op Days: 3 Review of Systems Patient overall feeling well and much improved, reports only abdominal spasms which are addressed with Robaxin. Positive bowel function including bowel movement. Tolerating oral intake including oral analgesics. Eager for discharge. Other Information/Narrative: 1. Ileostomy takedown 2. Small bowel resection 3. [id number] functional end-to-end antiperistaltic anastomosis stapled with primary enterotomy closure to layers 4. Parastomal hernia repair 5. Drain placement 6. Tap block Objective Wound/Incisions: positive: Healing well, Dressing dry and intact, No drainage General Appearance: positive: No acute distress Eyes Bilateral: positive: Normal inspection ENT: positive: ENT inspection nml Neck: positive: Nml inspection Respiratory: positive: Chest non-tender, No respiratory distress, Breath sounds nml. negative: Wheezes, Rales, Rhonchi Cardiovascular: positive: Regular rate & rhythm Abdomen: positive: No distention, Other. negative: Guarding, Rebound. Wound repacked without complication, no erythema, no induration, no purulent discharge. Robson drain removed without any complication. Extremities: positive: Non-tender, Full ROM, Nml appearance Neurologic/Psychiatric: positive: Oriented x3, CN's nml (2-12) Impression/Plan POD #3 s/p listed procedue (ileostomy reversal, small bowel resection, parastomal hernia repair, tap block, other indicated/assorted procedures). History of complicated diverticulitis status post laparoscopic low anterior resection with proximal diversion. Doing well. Resolved ileus with resumption of bowel function. Appropriate for discharge to home within 24 hours. (1) GI - IVF, bowel regimen, advance diet as tolerated. GI ppx. Opiate sparring analgesia. (2) SURGERY - Discontinued CORDELL without complication. Wound care continue packing historic stoma site. (3) Renal/Lytes - Heplock IVF. Renal indices within normal limits. (4) Respiratory - Continue IS. (5) Heme - Will continue with DVT ppx. H/H stable. (6) Cardiovascular - HD acceptable. (7) Neuro - Opiate sparring analgesia. Antispasmodics with Robaxin. Toradol. (8) WOUND care - will need to be discharged with home packing strips to historic ileostomy site (9) Discharge planning within 24 hours as translates and transitions to oral analgesia and regular diet.
--- NOTE | 2020-04-20 19:26 | Discharge Plan ---
Discharge Plan Problem Reviewed?: Yes Disposition: Home Health Service Condition: Good Prescriptions: oxyCODONE [Roxicodone] 5 mg PO Q4HR PRN #30 tablet PRN Reason: Pain methocarbamoL [Robaxin] 500 mg PO Q6HR #30 tablet LORazepam [Ativan] 1 mg PO Q8H PRN #24 tablet PRN Reason: Anxiety Docusate Sodium 100Mg Capsule [Colace 100Mg Capsule] 100 mg PO BID #60 capsule polyethylene glycoL 3350 [Miralax] 17 gm PO BID #30 packet Diet: Soft Activity Restrictions: No heavy lift/push/pull Shower Restrictions: No Driving Restrictions: Yes (No driving while taking narcotic pain medication) Instruction Topics: Limited Bowel Resection Surg, Hernia Surg Repair Health Concerns: DISCHARGE INSTRUCTIONS TEMPLATE: No heavy lifting, pushing, or pulling. Stairs are allowed, no strenuous/exertional activities. 5-10lbs weight carrying limit (i.e. gallon of milk) If provided, abdominal binder while out of bed and while ambulating. Call or proceed to clinic/ER for fevers, severe pain, nausea, vomiting, inability to pass flatus/stool, bleeding, wound redness/discharge, weakness, excessively loose stool/diarrhea, or for any other reasonably worrisome symptom or concern. Soft diet, no raw vegetables, avoid high fiber foods. Colace 100mg by mouth twice to three times daily while taking narcotic pain medication. If no bowel movement in 24-48hr, may take 17g Miralax in 8oz water twice daily until bowel movement. May shower, no submersive bathing. Follow up in clinic in 2-4 weeks for wound check and staple removal. No driving while taking narcotic pain medications. Follow up with primary care provider and/or medical subspecialist following discharge as well. Continue local wound care with iodoform packing and dry sterile gauze dressing. Plan of Treatment: Local wound care as listed above. Assessment: DISCHARGE INSTRUCTIONS TEMPLATE: No heavy lifting, pushing, or pulling. Stairs are allowed, no strenuous/exertional activities. 5-10lbs weight carrying limit (i.e. gallon of milk) If provided, abdominal binder while out of bed and while ambulating. Call or proceed to clinic/ER for fevers, severe pain, nausea, vomiting, inability to pass flatus/stool, bleeding, wound redness/discharge, weakness, excessively loose stool/diarrhea, or for any other reasonably worrisome symptom or concern. Soft diet, no raw vegetables, avoid high fiber foods. Colace 100mg by mouth twice to three times daily while taking narcotic pain medication. If no bowel movement in 24-48hr, may take 17g Miralax in 8oz water twice daily until bowel movement. May shower, no submersive bathing. Follow up in clinic in 2-4 weeks for wound check and staple removal. No driving while taking narcotic pain medications. Follow up with primary care provider and/or medical subspecialist following discharge as well. Continue local wound care with iodoform packing and dry sterile gauze dressing. Additional Instructions or Follow Up instructions: Home health care. No Smoking: If you smoke, Please STOP! Call for help. Follow-up with: Kimberlyn Crain MD [Provider Admit Priv/Credential] -
[2020-04-21] MEDS: KETOROLAC 30 MG/ML VIAL IVP SCH ×3 (00:53→12:45)
[2020-04-21] MEDS: METOCLOPRAMIDE 10 MG/2 ML VIAL IVP SCH ×3 (00:54→12:45)
[2020-04-21] MEDS: methocarbamoL 500 MG TABLET PO SCH ×2 (05:33→12:46)
[2020-04-21] MEDS: D5NS W/20 MEQ KCL 1,000 ML IV SCH ×2 (05:34→12:52)
[2020-04-21] MEDS: PANTOPRAZOLE 40 MG TABLET PO SCH (06:54)
[2020-04-21] MEDS ORDERED: SENNA 8.6 MG TABLET PO SCH (09:00)
[2020-04-21] MEDS: DOCUSATE SODIUM 100 MG CAPSULE PO SCH (09:38)
[2020-04-21] MEDS: polyethylene glycoL 3350 17 GM PACKET PO SCH (09:39)
[2020-04-21] MEDS: ENOXAPARIN 40 MG/0.4 ML SYRINGE SUBQ SCH (09:49)
[2020-04-21] MEDS: oxyCODONE 5 MG TABLET PO PRN (09:49)
--- NOTE | 2020-04-21 13:02 | DISCHARGE SUMMARY ---
"Discharge Summary Admit Date: 04/18/20 Discharge Date: 04/21/20 Discharging Provider: SALVADOR Code Status: Attempt Resuscitation Condition at Discharge: Good Discharge Disposition: 06 [facility] - DIAGNOSES Admission Diagnoses: 1 - Diverticulitis, complicated 2 - status post low anterior resection with DLI 3 - patent viable anastomosis, sparse adhesions 4 - Ileostomy status Discharge Diagnoses with Status of Each Condition: 1 - Diverticulitis, complicated - RESOLVED 2 - Status post low anterior resection with DLI - RESOLVED/COMPLETED 3 - Patent viable anastomosis, sparse adhesions 4 - Ileostomy status - RESOLVED/reversed/COMPLETED 5 - Patent viable anastomosis - N/A 6 - Sparse adhesions - RESOLVED 7 - Ileostomy site wound - ONGOING - HPI History of Present Illness: 34-year-old male with history of complicated diverticulitis failing maximal medical therapy. Status post low anterior resection for complicated diverticulitis failing maximal medical therapy. Proximately diverted in the setting of active diverticulitis with a loop ileostomy in spite of primary anastomosis. No complications status post lower endoscopy with patent anastomosis requiring mild dilatation [id number] pneumatic to 15 mm. Appropriate for takedown of proximal diverting loop ileostomy. - CONSULTS | PROCEDURES Consultations: NONE Procedures: Procedure Performed: 1. Ileostomy takedown 2. Small bowel resection 3. Adhesio lysis 4. Wound closure complex 5. Parastomal hernia repair - HOSPITAL COURSE Hospital Course: Status post low anterior resection for complicated diverticulitis failing maximal medical therapy. Proximately diverted in the setting of active diverticulitis with a loop ileostomy in spite of primary anastomosis. No complications status post lower endoscopy with patent anastomosis requiring mild dilatation [id number] pneumatic to 15 mm. Appropriate for takedown of proximal diverting loop ileostomy. Patient underwent operative intervention as listed in the electronic medical record. Tolerated procedure well for which there was no complication. Postoperatively the patient was managed for postoperative analgesia and resumption of bowel function. Patient had successfully passed trial of void. Tolerated oral intake without any complication. Denied nausea denied vomiting. Was advanced for diet without any complication. Patient had quick resumption of bowel function and on postoperative day #3 was appropriate for discharge. He was tolerating oral intake, oral analgesia, necessitated antispasmodics for abdominal wall discomfort however no other complication. Wound care was performed daily with dry sterile gauze atop iodoform packing strip to the historic ileostomy site. Robson drain was removed prior to discharge. Discharge instructions given. Analgesia with oxycodone amongst others opiate sparing analgesiaprovided at time of discharge. Patient plan for follow-up and will be notified of pathology once returned. - ALLERGIES Allergies/Adverse Reactions: Allergies Allergy/AdvReac Type Severity Reaction Status Date / Time No Known Drug Allergies Allergy Verified 01/18/20 09:22 - MEDICATIONS Home Medications: Ambulatory Orders Medication Instructions Recorded Confirmed Omeprazole 20 mg PO DAILY 02/16/20 04/19/20 traMADol [Ultram] 100 mg PO Q6H PRN #30 tablet 03/01/20 04/19/20 Gabapentin 300 mg PO BID 04/19/20 04/19/20 Docusate Sodium 100Mg Capsule 100 mg PO BID #60 capsule 04/20/20 [Colace 100Mg Capsule] Oxycodone HCl 10 mg PO .9XDAY 04/20/20 04/20/20 methocarbamoL [Robaxin] 500 mg PO Q6HR #30 tablet 04/20/20 oxyCODONE [Roxicodone] 5 mg PO Q4HR PRN #30 tablet 04/20/20 polyethylene glycoL 3350 [Miralax] 17 gm PO BID #30 packet 04/20/20 LORazepam [Ativan] 1 mg PO Q8H PRN #24 tablet 04/21/20 Senna [Senokot] 8.6 - 17.2 mg PO DAILY tablet 04/21/20 - PHYSICAL EXAM AT DISCHARGE General Appearance: positive: No acute distress Eyes Bilateral: positive: Normal inspection, PERRL, EOMI ENT: positive: ENT inspection nml Neck: positive: Nml inspection Respiratory: positive: Chest non-tender, No respiratory distress, Breath sounds nml. negative: Wheezes, Rales, Rhonchi Cardiovascular: positive: Regular rate & rhythm Abdomen: positive: Non-tender, No distention, Other (Historic ileostomy site was packed with iodoform packing strip without any complication. Patient was already removed for his CORDELL without any adverse event.). negative: Tenderness, Guarding, Rebound Skin: positive: Color nml Extremities: positive: Non-tender, Full ROM, Nml appearance Neurologic/Psychiatric: positive: Oriented x3, CN's nml (2-12) - LABS Result Diagrams: 04/19/20 04:55 04/19/20 04:55 - SEPSIS Current Stage of Sepsis: Ruled out - FOLLOW UP Follow Up: Follow-up with [facility] - 1 to 2 weeks with home care visits as necessary for daily wound care"
[2020-04-21 15:57] VITALS: BP 121/65
== END 2020-04-21 16:24 | disposition home health service (06) | DRG 331 ==
LOC: MS3 10:32 → MS2 14:43
PROVIDERS: ADMIT Surgery; ATTEND Surgery
PROC: 0WQF0ZZ Repair Abdominal Wall, Open Approach (ICD-10-PCS; 2020-04-18)
PROC: 0DBB0ZZ Excision of Ileum, Open Approach (ICD-10-PCS; principal; 2020-04-18 11:30)
DX: Z43.2 Encounter for attention to ileostomy (principal); K43.5 Parastomal hernia without obstruction or gangrene; Z87.891 Personal history of nicotine dependence; K21.9 Gastro-esophageal reflux disease without esophagitis; Z87.19 Personal history of other diseases of the digestive system; Z98.0 Intestinal bypass and anastomosis status
CPT/HCPCS: 36415; 80053; 85025; 85049; A9270; J0131; J1170; J1650; J2765; J3010; J7120

== ENCOUNTER 2020-05-07 08:01 | Emergency (ER) | payer OTHER ==
[2020-05-07] MEDS ORDERED: DEXAMETHASONE 10 MG/ML VIAL PO STA (08:39)
[2020-05-07] MEDS ORDERED: CHERRY SYRUP 10 ML UDC PO ONE (08:39)
[2020-05-07] MEDS ORDERED: oxyCODONE 5 MG TABLET PO STA (08:39)
[2020-05-07] MEDS ORDERED: KETOROLAC 60 MG/2 ML VIAL IM STA (08:39)
--- NOTE | 2020-05-07 08:44 | ED Physician Documentation ---
History of Present Illness - Stated complaint Stated Complaint: LOWER BACK PX - Chief complaint Chief Complaint: Back Pain - History obtained from History obtained from: Patient - History of Present Illness Timing: Yesterday Pain level max: 8 Pain level now: 8 - Additonal information Additional information: 35-year-old male presents to the emergency department stating that he has bilateral low lumbar/sacral pain. States it started when he bent over to pick remover his wallet yesterday. Worse with movement and better with rest. No numbness or tingling. No loss of bowel or bladder control. Does not use IV drugs. No fevers. No IV drug use. No cancer. No trauma. Review of Systems Constitutional: denies: Fever, Chills Respiratory: denies: Cough GI: denies: Nausea, Vomiting, Diarrhea : denies: Dysuria Skin: denies: Rash Musculoskeletal: denies: Neck pain Neurologic: denies: Focal weakness, Numbness PD PAST MEDICAL HISTORY - Past Medical History Past Medical History: Yes Cardiovascular: None Respiratory: None Neuro: None Endocrine/Autoimmune: None GI: GERD, Diverticulitis : None HEENT: None Psych: None Musculoskeletal: None Derm: None - Past Surgical History Past Surgical History: Yes General: Cholecystectomy, Bowel surgery, Colonoscopy, EGD, Other - Present Medications Home Medications: Ambulatory Orders Medication Instructions Recorded Confirmed Omeprazole 20 mg PO DAILY 02/16/20 05/07/20 traMADol [Ultram] 100 mg PO Q6H PRN #30 tablet 03/01/20 05/07/20 Gabapentin 300 mg PO BID 04/19/20 05/07/20 Ibuprofen [Motrin] 800 mg PO Q8H PRN #30 tablet 05/07/20 Methylprednisolone [Medrol] 4 mg PO DAILY #1 tab.ds.pk 05/07/20 Oxycodone HCl/Acetaminophen 1 - 2 each PO Q6H PRN #14 tablet 05/07/20 [Percocet 5-325 mg Tablet] - Allergies Allergies/Adverse Reactions: Allergies Allergy/AdvReac Type Severity Reaction Status Date / Time No Known Drug Allergies Allergy Verified 05/07/20 08:09 - Social History Does the pt smoke?: No Smoking Status: Former smoker Does the pt drink ETOH?: No Does the pt have substance abuse?: No - Immunizations Immunizations are current?: Yes - POLST Patient has POLST: No PD ED PE NORMAL - Vitals Vital signs reviewed: Yes - General General: Alert and oriented X 3, No acute distress, Well developed/nourished - HEENT HEENT: Moist mucous membranes - Neck Neck: Supple, no meningeal sign - Cardiac Cardiac: RRR - Respiratory Respiratory: No respiratory distress, Clear bilaterally - Abdomen Abdomen: Soft, Non tender, Non distended - Back Back: No spinal TTP (No midline tenderness to palpation or percussion. He is tender palpation over the bilateral sacroiliac joints and this reproduces his pain. No muscle spasm.) - Derm Derm: Warm and dry - Extremities Extremities: Other (Normal bilateral lower extremity patellar and ankle jerk reflexes. Normal great toe extension bilaterally. no saddle anesthesia) - Neuro Neuro: Alert and oriented X 3 Results - Vitals Vitals: Vital Signs - 24 hr 05/07/20 05/07/20 08:09 08:38 Temperature 36.7 C Heart Rate 72 63 Respiratory 18 16 Rate Blood Pressure 119/81 H 115/77 O2 Saturation 99 100 Oxygen O2 Source Room air PD MEDICAL DECISION MAKING - ED course Complexity details: considered differential (No cauda equina, no spinal epidural abscess, no fracture, no aortic dissection or evidence of aneursym rupture), d/w patient ED course: 35-year-old male with what appears to be bilateral sacroiliitis. He does have a longstanding history of digestive issues incurring recurrent diverticulitis with resections and ileostomies. He should be tested for HLA-B27 and possible ankylosing spondylitis. Does have a history of back issues as well. We will place him on steroids and anti-inflammatories. No evidence of cauda equina, epidural abscess, fracture. Patient counseled regarding signs and symptoms for which I believe and urgent re-evaluation would be necessary. Patient with good understanding of and agreement to plan and is comfortable going home at this time This document was made in part using voice recognition software. While efforts are made to proofread this document, sound alike and grammatical errors may occur. Departure - Departure Disposition: 01 Home, Self Care Clinical Impression: Bilateral sacroiliitis Condition: Good Instructions: ED Sacroiliitis Follow-Up: TRESAS MORALES MD [Primary Care Provider] - Within 1 week Prescriptions: Methylprednisolone [Medrol] 4 mg PO DAILY #1 tab.ds.pk Ibuprofen [Motrin] 800 mg PO Q8H PRN #30 tablet PRN Reason: PAIN &/OR FEVER Oxycodone HCl/Acetaminophen [Percocet 5-325 mg Tablet] 1 - 2 each PO Q6H PRN #14 tablet PRN Reason: pain Comments: Use the medications as needed for pain. Return if you worsen. You should follow-up with your doctor and discuss being tested for HLA-B27. Your digestive issues may put you at risk for spinal issues such as ankylosing spondylitis. Do not drink alcohol or drive while on narcotic pain medicine. Note that many narcotic pain relievers also contain tylenol/acetaminophen. Please ensure that your total dose of acetaminophen from all sources does not exceed 3 grams (3000mg) per day. You may constipated on this medication, take a stool softener such as "Colace" twice a day while you are on it. Also recommend a [id number] laxative such as senna or MiraLAX any day that you do not have a bowel movement. If you received narcotic pain medication in the emergency department, do not drive or operate machinery for the next 24 hours.
[2020-05-07 09:06] VITALS: BP 108/78
== END 2020-05-07 09:05 | disposition home or self-care (01) ==
LOC: ED 08:01
DX: M46.1 Sacroiliitis, not elsewhere classified (principal); Z87.891 Personal history of nicotine dependence
CPT/HCPCS: 96372; 99283; 99284; A9270

== ENCOUNTER 2020-05-12 11:37 | Emergency (ER) | payer OTHER ==
--- NOTE | 2020-05-12 12:58 | ED Physician Documentation ---
History of Present Illness - Stated complaint Stated Complaint: NUMBNESS IN R LEG/BACK PX - Chief complaint Chief Complaint: Back Pain - History obtained from History obtained from: Patient, Family - History of Present Illness Timing: Other (1) Pain level max: 9 Pain level now: 9 - Additonal information Additional information: 35-year-old male presents to the emergency department stating he has had back pain for the past week. He has been on a Medrol Dosepak as well as pain medication. He states today he developed numbness to the right leg and can no longer walk or stand on that leg. No loss of bowel or bladder control. No fevers. Does have a history of an ileostomy secondary to diverticulitis. No IV drug use. No fevers. No trauma. Nothing makes it better or worse Review of Systems Constitutional: denies: Fever, Chills Ears: denies: Ear pain Nose: denies: Rhinorrhea / runny nose, Congestion Respiratory: denies: Cough GI: denies: Nausea, Vomiting, Diarrhea : denies: Dysuria, Unable to Void, Incontinent Skin: denies: Rash Musculoskeletal: denies: Neck pain Neurologic: denies: Headache PD PAST MEDICAL HISTORY - Past Medical History Past Medical History: Yes Cardiovascular: None Respiratory: None Neuro: None Endocrine/Autoimmune: None GI: GERD, Diverticulitis : None HEENT: None Psych: None Musculoskeletal: None Derm: None - Past Surgical History Past Surgical History: Yes General: Cholecystectomy, Bowel surgery, Colonoscopy, EGD, Other - Present Medications Home Medications: Ambulatory Orders Medication Instructions Recorded Confirmed Gabapentin 300 mg PO BID 04/19/20 05/07/20 - Allergies Allergies/Adverse Reactions: Allergies Allergy/AdvReac Type Severity Reaction Status Date / Time No Known Drug Allergies Allergy Verified 05/12/20 12:03 - Social History Does the pt smoke?: No Smoking Status: Never smoker Does the pt drink ETOH?: No Does the pt have substance abuse?: No - Immunizations Immunizations are current?: Yes - POLST Patient has POLST: No PD ED PE NORMAL - Vitals Vital signs reviewed: Yes - General General: Alert and oriented X 3, No acute distress - HEENT HEENT: Moist mucous membranes - Neck Neck: Supple, no meningeal sign - Cardiac Cardiac: RRR - Respiratory Respiratory: No respiratory distress, Clear bilaterally - Back Back: Other (Tender palpation over the right sacroiliac joint. No midline tenderness to palpation. No step-off or deformity.) - Derm Derm: Warm and dry - Extremities Extremities: Other (No saddle anesthesia, decreased sensation over the right leg from approximately mid thigh to the foot. 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 MRI is not available here today. I discussed the case with Dr. Zach Benavidez at [facility] in [place] at approximately 1 PM. We will transfer him to the emergency department for repeat evaluation and MRI. COBRA forms completed. Departure - Departure Disposition: 02 Transfer Acute Care Hosp Clinical Impression: Right leg weakness Back pain Qualifiers: Back pain location: low back pain Chronicity: acute Back pain laterality: right Sciatica presence: with sciatica Sciatica laterality: sciatica of right side Qualified Code(s): M54.41 - Lumbago with sciatica, right side Condition: Stable
[2020-05-12] MEDS ORDERED: KETOROLAC 60 MG/2 ML VIAL IM STA (13:02)
[2020-05-12] MEDS ORDERED: HYDROmorphone 1 MG/ML CARPUJECT IM STA (14:05)
[2020-05-12 14:46] VITALS: BP 130/72
== END 2020-05-12 14:46 | disposition short-term general hospital (02) ==
LOC: ED 11:37
DX: M54.41 Lumbago with sciatica, right side (principal); Z93.2 Ileostomy status
CPT/HCPCS: 96372; 99284; 99285; J1170

== ENCOUNTER 2020-05-12 14:42 | Outpatient (CLI) | payer OTHER | END 2020-05-12 14:43 | disposition short-term general hospital (02) | LOC: EMS 14:42 | PROVIDERS: ATTEND Surgery | DX: M54.5 Low back pain (principal); R20.0 Anesthesia of skin; R53.1 Weakness | CPT/HCPCS: A0425; A0428 ==

== ENCOUNTER 2020-12-04 11:14 | Emergency (ER) | payer OTHER ==
[2020-12-04 11:23] VITALS: BP 135/81
[2020-12-04 11:41] LABS: BASOPHILS % (AUTO) 0.5 %; EOSINOPHILS # (AUTO) 0.1 10^3/uL (0.0-0.7); EOSINOPHILS % (AUTO) 2.1 %; HCT - HEMATOCRIT 45.4 % (42.0-52.0); HGB - HEMOGLOBIN 15.9 g/dL (14.0-18.0); LYMPHOCYTES # (AUTO) 2.1 10^3/uL (1.5-3.5); LYMPHOCYTES % (AUTO) 32.2 %; MEAN CORPUSCULAR HEMOGLOBIN 30.7 pg (27.0-31.0); MEAN CORPUSCULAR VOLUME 87.6 fL (80.0-94.0); MEAN PLATELET VOLUME 9.7 fL (7.4-11.4); MONOCYTES # (AUTO) 0.5 10^3/uL (0.0-1.0); MONOCYTES % (AUTO) 7.1 %; NEUTROPHILS # (AUTO) 3.8 10^3/uL (1.5-6.6); NEUTROPHILS % (AUTO) 57.8 %; PLT - PLATELET COUNT 300 10^3/uL (130-450); RED BLOOD COUNT 5.18 10^6/uL (4.70-6.10); RED CELL DISTRIBUTION WIDTH 12.1 % (12.0-15.0); WHITE BLOOD COUNT 6.6 x10^3/uL (4.8-10.8)
[2020-12-04 11:53] LABS: ALBUMIN 4.5 g/dL (3.2-5.5); ALBUMIN/GLOBULIN RATIO 1.5 (1.0-2.2); BILIRUBIN,TOTAL 0.5 mg/dL (0.2-1.0); CALCIUM 9.5 mg/dL (8.5-10.3); CREATININE 1.5 mg/dL (0.6-1.2); POTASSIUM 4.2 mmol/L (3.5-5.0); TOTAL PROTEIN 7.6 g/dL (6.7-8.2)
== END 2020-12-04 12:28 | disposition left against medical advice (07) ==
LOC: ED 11:14
DX: Z53.21 Procedure and treatment not carried out due to patient leaving prior to being seen by health care provider (principal)
CPT/HCPCS: 36415; 80053; 83690; 85025

== ENCOUNTER 2020-12-04 20:05 | Emergency (ER) | payer OTHER ==
[2020-12-04 20:17] VITALS: BP 129/74
[2020-12-04 20:31] LABS: BASOPHILS % (AUTO) 0.2 %; EOSINOPHILS # (AUTO) 0.2 10^3/uL (0.0-0.7); EOSINOPHILS % (AUTO) 2.2 %; HCT - HEMATOCRIT 45.6 % (42.0-52.0); HGB - HEMOGLOBIN 16.5 g/dL (14.0-18.0); LYMPHOCYTES # (AUTO) 2.6 10^3/uL (1.5-3.5); LYMPHOCYTES % (AUTO) 30.8 %; MEAN CORPUSCULAR HEMOGLOBIN 31.5 pg (27.0-31.0); MEAN CORPUSCULAR HGB CONC 36.2 g/dL (32.0-36.0); MEAN CORPUSCULAR VOLUME 87.2 fL (80.0-94.0); MEAN PLATELET VOLUME 9.5 fL (7.4-11.4); MONOCYTES # (AUTO) 0.6 10^3/uL (0.0-1.0); MONOCYTES % (AUTO) 6.9 %; NEUTROPHILS # (AUTO) 5.1 10^3/uL (1.5-6.6); NEUTROPHILS % (AUTO) 59.7 %; PLT - PLATELET COUNT 309 10^3/uL (130-450); RED BLOOD COUNT 5.23 10^6/uL (4.70-6.10); RED CELL DISTRIBUTION WIDTH 12.2 % (12.0-15.0); WHITE BLOOD COUNT 8.5 x10^3/uL (4.8-10.8)
--- NOTE | 2020-12-04 20:33 | ED Physician Documentation ---
PD HPI ABD PAIN - Stated complaint Stated Complaint: ABD PX - Chief complaint Chief Complaint: Abd Pain - History obtained from History obtained from: Patient - Additional information Additional information: 35-year-old gentleman with history of diverticulitis, little under a year ago had loop ileostomy and anterior resection for same with subsequent reversal. For the last 4 to 5 days has had pelvic cramping. [place] results are [place]. Subsequently has had 2 loose bowel movements mixed with a large amount of blood. He is nauseous. Also has a headache. No fevers. He checked in earlier in the day but left without being seen but after labs showed fairly normal CBC. Review of Systems Ten Systems: 10 systems reviewed and negative Constitutional: denies: Fever, Chills, Fatigue Cardiac: denies: Chest pain / pressure, Palpitations Respiratory: denies: Dyspnea, Cough PD PAST MEDICAL HISTORY - Past Medical History Cardiovascular: None Respiratory: None Neuro: None Endocrine/Autoimmune: None GI: GERD, Diverticulitis : None HEENT: None Psych: None Musculoskeletal: None Derm: None - Past Surgical History Past Surgical History: Yes General: Cholecystectomy, Bowel surgery, Colonoscopy, EGD, Other - Present Medications Home Medications: Ambulatory Orders Medication Instructions Recorded Confirmed Omeprazole 40 mg PO DAILY 12/04/20 12/04/20 - Allergies Allergies/Adverse Reactions: Allergies Allergy/AdvReac Type Severity Reaction Status Date / Time No Known Drug Allergies Allergy Verified 12/04/20 20:17 - Social History Does the pt smoke?: No Smoking Status: Never smoker Does the pt drink ETOH?: No Does the pt have substance abuse?: No - Immunizations Immunizations are current?: Yes - POLST Patient has POLST: No PD ED PE NORMAL - Vitals Vital signs reviewed: Yes - General General: Alert and oriented X 3, No acute distress - HEENT HEENT: PERRL, EOMI - Neck Neck: Supple, no meningeal sign, No bony TTP - Cardiac Cardiac: RRR, No murmur - Respiratory Respiratory: No respiratory distress, Clear bilaterally - Abdomen Abdomen: Other (Mild left and right lower quadrant tenderness with hyperactive bowel sounds but no surgical signs.) - Back Back: No CVA TTP, No spinal TTP - Derm Derm: Normal color, Warm and dry - Extremities Extremities: No edema, No calf tenderness / cord - Neuro Neuro: Alert and oriented X 3, Normal speech Results - Vitals Vitals: Vital Signs - 24 hr 12/04/20 20:14 Temperature 37.4 C Heart Rate 87 Respiratory 16 Rate Blood Pressure 129/74 O2 Saturation 97 Oxygen O2 Source Room air - Labs Labs: Laboratory Tests 12/04/20 12/04/20 12/04/20 20:20 20:26 20:26 WBC 8.5 RBC 5.23 Hgb 16.5 Hct 45.6 MCV 87.2 MCH 31.5 H MCHC 36.2 H RDW 12.2 Plt Count 309 MPV 9.5 Neut # (Auto) 5.1 Lymph # (Auto) 2.6 Petroleum # (Auto) 0.6 Eos # (Auto) 0.2 Baso # (Auto) 0.0 Absolute Nucleated RBC 0.00 Nucleated RBC % 0.0 Sodium 140 Potassium 3.5 Chloride 101 Carbon Dioxide 29 Anion Gap 10.0 BUN 20 Creatinine 1.5 H Estimated GFR (MDRD) 53 L Glucose 111 H Calcium 9.8 Total Bilirubin 0.6 AST 25 ALT 37 Alkaline Phosphatase 80 Total Protein 7.6 Albumin 4.5 Globulin 3.1 Albumin/Globulin Ratio 1.5 Lipase 32 Urine Color YELLOW Urine Clarity CLEAR Urine pH 6.5 Ur Specific [place] 1.020 Urine Protein NEGATIVE Urine Glucose (UA) NEGATIVE Urine Ketones NEGATIVE Urine Occult Blood NEGATIVE Urine Nitrite NEGATIVE Urine Bilirubin NEGATIVE Urine Urobilinogen 0.2 (NORMAL) Ur Leukocyte Esterase NEGATIVE Ur Microscopic Review NOT INDICATED Urine Culture Comments NOT INDICATED - Rads (name of study) CT A/P Radiology: EMP read contemporaneously (No acute process, diverticulosis) PD MEDICAL DECISION MAKING - ED course ED course: 35-year-old gentleman with about 4 to 5 days lower abdominal pain and cramping. Had hematochezia today. His blood work is reassuring. He requested repeat CT because he is unsure when he will get the results from the one earlier today. We discussed the risks and benefits in the setting of repeat radiation dosing and he would like to go ahead with it and this was done without pertinent positive findings. Departure - Departure Disposition: 01 Home, Self Care Clinical Impression: Lower GI bleed, Diverticulosis Condition: Stable Record reviewed to determine appropriate education?: Yes Instructions: ED Hematochezia Stable Comments: Return if worsening or if bleeding worsens or you start to feel dizzy. [place]
[2020-12-04 20:45] LABS: BILIRUBIN,URINE NEGATIVE (NEGATIVE); GLUCOSE, URINE (UA) NEGATIVE (NEGATIVE); KETONES,URINE (UA) NEGATIVE (NEGATIVE); LEUKOCYTE ESTERASE, URINE NEGATIVE (NEGATIVE); NITRITE,URINE NEGATIVE (NEGATIVE); OCCULT BLOOD,URINE NEGATIVE (NEGATIVE); PH,URINE 6.5 PH (5.0-7.5); PROTEIN,URINE NEGATIVE (NEGATIVE); UROBILINOGEN,URINE 0.2 (NORMAL) E.U./dL (NORMAL)
[2020-12-04 20:45] LABS: ALBUMIN 4.5 g/dL (3.2-5.5); ALBUMIN/GLOBULIN RATIO 1.5 (1.0-2.2); BILIRUBIN,TOTAL 0.6 mg/dL (0.2-1.0); CALCIUM 9.8 mg/dL (8.5-10.3); CREATININE 1.5 mg/dL (0.6-1.2); POTASSIUM 3.5 mmol/L (3.5-5.0); TOTAL PROTEIN 7.6 g/dL (6.7-8.2)
[2020-12-04 20:51] LABS: CLARITY,URINE CLEAR (CLEAR)
[2020-12-04] MEDS ORDERED: IOVERSOL 320 100 ML VIAL IVP ONE ×2 (21:00→21:20)
[2020-12-04] MEDS ORDERED: KETOROLAC 30 MG/ML VIAL IVP STA (21:17)
[2020-12-04] MEDS ORDERED: ONDANSETRON 4 MG/2 ML VIAL IVP STA (21:17)
--- NOTE | 2020-12-04 21:38 | CT Report ---
PROCEDURE: Abdomen/Pelvis W INDICATIONS: IV only, low abd pain; don't wait for labs CONTRAST: IV CONTRAST: Optiray 320 ml: 100 PO CONTRAST: *NO PO CONTRAST TECHNIQUE: After the administration of oral and intravenous contrast, 5 mm thick sections acquired from the diap hragms to the symphysis. 5 mm thick coronal and sagittal reformats were acquired. For radiation dos e reduction, the following was used: automated exposure control, adjustment of mA and/or kV accordin g to patient size. COMPARISON: 02/08/2020. FINDINGS: Image quality: Excellent. ABDOMEN: Lung bases: Lung bases are clear. Heart size is normal. Solid organs: Liver and spleen are normal in size and enhancement. Gallbladder is surgically absent . Biliary system is non dilated. Pancreas enhances normally. No adrenal nodules. Kidneys demonstr ate normal size and enhancement, without hydronephrosis. Peritoneum and bowel: Bowel loops demonstrate normal wall thickness and caliber. No free fluid or a ir. There is a normal appendix which contains air and oral contrast. Sigmoid diverticulosis without evidence of diverticulitis. Remote partial bowel resection. Nodes and vessels: No retroperitoneal or mesenteric adenopathy by size criteria. Aorta and inferior vena cava are normal in size. Miscellaneous: No ventral hernias. PELVIS: Genitourinary: Bladder wall thickness is normal. Miscellaneous: No inguinal hernias or adenopathy. Bones: No suspicious bony lesions. No vertebral body compression fractures. IMPRESSION: 1. Normal appendix. No evidence of acute appendicitis. 2. Mild sigmoid diverticulosis without evidence of diverticulitis. 3. No evidence of acute abdominal process. Reviewed by: Uziel Kang MD on 12/04/2020 9:37 PM PDT Approved by: Uziel Kang MD on 12/04/2020 9:37 PM PDT Station ID: [id number]
== END 2020-12-04 22:33 | disposition home or self-care (01) ==
LOC: ED 20:05
DX: K57.31 Diverticulosis of large intestine without perforation or abscess with bleeding (principal)
CPT/HCPCS: 36415; 74177; 80053; 81003; 83690; 85025; 96374; 99284; Q9967; 81001; 87086

== ENCOUNTER 2021-07-26 03:23 | Emergency (ER) | payer OTHER ==
[2021-07-26] MEDS ORDERED: ONDANSETRON 4 MG/2 ML VIAL IVP STA (03:42)
[2021-07-26] MEDS ORDERED: SODIUM CHLORIDE 0.9% 1,000 ML IV STA (03:42)
[2021-07-26] MEDS ORDERED: KETOROLAC 15 MG/ML VIAL IVP STA (03:42)
[2021-07-26] MEDS ORDERED: FAMOTIDINE 20 MG/2 ML VIAL IVP STA (03:51)
[2021-07-26 03:54] LABS: BASOPHILS % (AUTO) 0.2 %; EOSINOPHILS % (AUTO) 0.1 %; HCT - HEMATOCRIT 43.4 % (42.0-52.0); HGB - HEMOGLOBIN 15.3 g/dL (14.0-18.0); LYMPHOCYTES # (AUTO) 0.8 10^3/uL (1.5-3.5); LYMPHOCYTES % (AUTO) 5.1 %; MEAN CORPUSCULAR HEMOGLOBIN 31.2 pg (27.0-31.0); MEAN CORPUSCULAR HGB CONC 35.3 g/dL (32.0-36.0); MEAN CORPUSCULAR VOLUME 88.4 fL (80.0-94.0); MEAN PLATELET VOLUME 10.2 fL (7.4-11.4); MONOCYTES # (AUTO) 0.4 10^3/uL (0.0-1.0); MONOCYTES % (AUTO) 2.8 %; NEUTROPHILS # (AUTO) 14.2 10^3/uL (1.5-6.6); NEUTROPHILS % (AUTO) 91.4 %; PLT - PLATELET COUNT 238 10^3/uL (130-450); RED BLOOD COUNT 4.91 10^6/uL (4.70-6.10); RED CELL DISTRIBUTION WIDTH 12.1 % (12.0-15.0); WHITE BLOOD COUNT 15.6 x10^3/uL (4.8-10.8)
[2021-07-26 03:55] LABS: BILIRUBIN,URINE NEGATIVE (NEGATIVE); GLUCOSE, URINE (UA) NEGATIVE (NEGATIVE); KETONES,URINE (UA) NEGATIVE (NEGATIVE); LEUKOCYTE ESTERASE, URINE NEGATIVE (NEGATIVE); NITRITE,URINE NEGATIVE (NEGATIVE); OCCULT BLOOD,URINE NEGATIVE (NEGATIVE); PH,URINE 8.5 PH (5.0-7.5); PROTEIN,URINE NEGATIVE (NEGATIVE); UROBILINOGEN,URINE 0.2 (NORMAL) E.U./dL (NORMAL)
[2021-07-26 03:57] LABS: CLARITY,URINE CLEAR (CLEAR)
[2021-07-26] MEDS ORDERED: IOVERSOL 320 100 ML VIAL IVP ONE ×2 (03:58→04:35)
[2021-07-26 04:04] LABS: ALBUMIN 4.4 g/dL (3.2-5.5); ALBUMIN/GLOBULIN RATIO 1.5 (1.0-2.2); BILIRUBIN,TOTAL 0.6 mg/dL (0.2-1.0); CALCIUM 9.6 mg/dL (8.5-10.3); CREATININE 1.5 mg/dL (0.6-1.2); POTASSIUM 3.8 mmol/L (3.5-5.0); TOTAL PROTEIN 7.4 g/dL (6.7-8.2)
--- NOTE | 2021-07-26 04:44 | ED Physician Documentation ---
History of Present Illness - Stated complaint Stated Complaint: CHILLS/V/N/FEVER/ACHES - Chief complaint Chief Complaint: Abd Pain - Additonal information Additional information: 28-year-old man with past medical history of diverticulitis status post loop ileostomy and anterior resection and reversal presents with sudden onset nonbloody nonbilious nausea and vomiting, Chills, full body aches, and mid abdominal pain (aching constant, diffuse, sudden onset, moderate severity, a/w n/v) as well as frontal aching headache of starting just prior to arrival in the early hours of this morning. no known sick exposures. denies diarrhea, urinary sx, back pain. Review of Systems Ten Systems: 10 systems reviewed and negative Constitutional: reports: Fever, Chills, Myalgias GI: reports: Abdominal Pain, Nausea, Vomiting Neurologic: reports: Headache PD PAST MEDICAL HISTORY - Past Medical History Past Medical History: Yes Cardiovascular: None Respiratory: None Neuro: None Endocrine/Autoimmune: None GI: GERD, Diverticulitis : None HEENT: None Psych: None Musculoskeletal: None Derm: None - Past Surgical History Past Surgical History: Yes General: Cholecystectomy, Bowel surgery, Colonoscopy, EGD, Other - Present Medications Home Medications: Ambulatory Orders Medication Instructions Recorded Confirmed Omeprazole 40 mg PO DAILY 12/04/20 12/04/20 - Allergies Allergies/Adverse Reactions: Allergies Allergy/AdvReac Type Severity Reaction Status Date / Time No Known Drug Allergies Allergy Verified 07/26/21 03:34 - Social History Does the pt smoke?: No Smoking Status: Never smoker Does the pt drink ETOH?: No Does the pt have substance abuse?: No - Immunizations Immunizations are current?: Yes - POLST Patient has POLST: No PD ED PE NORMAL - Vitals Vital signs reviewed: Yes - General General: Alert and oriented X 3, No acute distress, Well developed/nourished - HEENT HEENT: Atraumatic, PERRL, EOMI - Neck Neck: Supple, no meningeal sign - Cardiac Cardiac: Other (Tachycardic rate, regular rhythm) - Respiratory Respiratory: No respiratory distress, Clear bilaterally - Abdomen Abdomen: Other (Diffusely tender to palpation) - Derm Derm: Normal color, Warm and dry - Extremities Extremities: No deformity - Neuro Neuro: Alert and oriented X 3 - Psych Psych: Normal mood, Normal affect Results - Vitals Vitals: Vital Signs - 24 hr 07/26/21 07/26/21 07/26/21 03:31 04:30 05:00 Temperature 38.1 C H 37.4 C Heart Rate 121 H 105 H 102 H Respiratory 22 16 16 Rate Blood Pressure 133/70 H 127/70 119/67 O2 Saturation 96 100 94 07/26/21 06:29 Temperature Heart Rate 93 Respiratory 16 Rate Blood Pressure 118/72 O2 Saturation 95 Oxygen O2 Source Room air - Labs Labs: Laboratory Tests 07/26/21 07/26/21 07/26/21 03:40 03:40 03:40 WBC 15.6 H RBC 4.91 Hgb 15.3 Hct 43.4 MCV 88.4 MCH 31.2 H MCHC 35.3 RDW 12.1 Plt Count 238 MPV 10.2 Neut # (Auto) 14.2 H Lymph # (Auto) 0.8 L Ralls # (Auto) 0.4 Eos # (Auto) 0.0 Baso # (Auto) 0.0 Absolute Nucleated RBC 0.00 Nucleated RBC % 0.0 Sodium 143 Potassium 3.8 Chloride 104 Carbon Dioxide 27 Anion Gap 12.0 BUN 20 Creatinine 1.5 H Estimated GFR (MDRD) 52 L Glucose 128 H Calcium 9.6 Total Bilirubin 0.6 AST 23 ALT 25 Alkaline Phosphatase 67 Total Protein 7.4 Albumin 4.4 Globulin 3.0 Albumin/Globulin Ratio 1.5 Lipase 29 Urine Color YELLOW Urine Clarity CLEAR Urine pH 8.5 H Ur Specific [place] 1.020 Urine Protein NEGATIVE Urine Glucose (UA) NEGATIVE Urine Ketones NEGATIVE Urine Occult Blood NEGATIVE Urine Nitrite NEGATIVE Urine Bilirubin NEGATIVE Urine Urobilinogen 0.2 (NORMAL) Ur Leukocyte Esterase NEGATIVE Ur Microscopic Review NOT INDICATED Urine Culture Comments NOT INDICATED Nasal Adenovirus (PCR) Nasal B. parapertussis DNA (PCR) Nasal Coronavir 229E PCR Nasal Coronavir HKU1 PCR Nasal Coronavir NL63 PCR Nasal Coronavir OC43 PCR Nasal Enterovir/Rhinovir PCR Nasal Influenza B PCR Nasal Influenza A PCR Nasal Parainfluen 1 PCR Nasal Parainfluen 2 PCR Nasal Parainfluen 3 PCR Nasal Parainfluen 4 PCR Nasal RSV (PCR) Nasal B.pertussis DNA PCR Nasal C.pneumoniae (PCR) Isidro Human Metapneumo PCR Nasal M.pneumoniae (PCR) Nasal SARS-CoV-2 (PCR) 07/26/21 04:49 WBC RBC Hgb Hct MCV MCH MCHC RDW Plt Count MPV Neut # (Auto) Lymph # (Auto) Ralls # (Auto) Eos # (Auto) Baso # (Auto) Absolute Nucleated RBC Nucleated RBC % Sodium Potassium Chloride Carbon Dioxide Anion Gap BUN Creatinine Estimated GFR (MDRD) Glucose Calcium Total Bilirubin AST ALT Alkaline Phosphatase Total Protein Albumin Globulin Albumin/Globulin Ratio Lipase Urine Color Urine Clarity Urine pH Ur Specific [place] Urine Protein Urine Glucose (UA) Urine Ketones Urine Occult Blood Urine Nitrite Urine Bilirubin Urine Urobilinogen Ur Leukocyte Esterase Ur Microscopic Review Urine Culture Comments Nasal Adenovirus (PCR) NOT DETECTED Nasal B. parapertussis DNA (PCR) NOT DETECTED Nasal Coronavir 229E PCR NOT DETECTED Nasal Coronavir HKU1 PCR NOT DETECTED Nasal Coronavir NL63 PCR NOT DETECTED Nasal Coronavir OC43 PCR NOT DETECTED Nasal Enterovir/Rhinovir PCR DETECTED A Nasal Influenza B PCR NOT DETECTED Nasal Influenza A PCR NOT DETECTED Nasal Parainfluen 1 PCR NOT DETECTED Nasal Parainfluen 2 PCR NOT DETECTED Nasal Parainfluen 3 PCR NOT DETECTED Nasal Parainfluen 4 PCR NOT DETECTED Nasal RSV (PCR) NOT DETECTED Nasal B.pertussis DNA PCR NOT DETECTED Nasal C.pneumoniae (PCR) NOT DETECTED Isidro Human Metapneumo PCR NOT DETECTED Nasal M.pneumoniae (PCR) NOT DETECTED Nasal SARS-CoV-2 (PCR) NOT DETECTED PD MEDICAL DECISION MAKING - ED course ED course: 28-year-old man presents with fever, vomiting, abdominal pain, body aches, and headache. Will treat symptoms, obtain Lab work and CT, reevaluate. Patient has noncontributory abdominal CT with exception of ground glass opacities at BL lung bases. patient is completely without respiratory symptoms. He is fully vaccinated against covid as of march and has a respiratory panel negative for covid but positive for rhino/enterovirus. This is c/w his presentation of viral GI bug. symptom management discussed with the patient. strict return precautions given. patient is not to return to work until symptoms resolve. plan to f/u [employer]. Departure - Departure Disposition: 01 Home, Self Care Clinical Impression: Enterovirus infection, Nausea and vomiting, Fever, Abdominal pain Condition: Good Instructions: ED Viral Syndrome Comments: You are seen in the emergency department for a viral stomach bug (enterovirus). Please stay well-hydrated and get lots of rest. Stay home and wash your hands thoroughly. Do not go back to work until your symptoms have gone away. Return to the emergency department if you have any new or worsening symptoms or other concerns. [place] Forms: Activity restrictions
[2021-07-26 05:51] LABS: B. PARAPERTUSSIS- RESP PCR PAN NOT DETECTED; B. PERTUSSIS- RESP PCR PANEL NOT DETECTED; C. PNEUMONIAE- RESP PCR PANEL NOT DETECTED; CORONAVIRUS 229E-RESP PCR NOT DETECTED; CORONAVIRUS HKU1-RESP PCR NOT DETECTED; CORONAVIRUS NL63-RESP PCR NOT DETECTED; CORONAVIRUS OC43-RESP PCR NOT DETECTED; HUMAN METAPNEUMOVIRUS NOT DETECTED; INFLUENZA A- RESP PCR PANEL NOT DETECTED; INFLUENZA B - RESP PCR PANEL NOT DETECTED; M. PNEUMONIAE- RESP PCR PANEL NOT DETECTED; PARAINFLUENZA VIRUS 1 NOT DETECTED; PARAINFLUENZA VIRUS 2 NOT DETECTED; PARAINFLUENZA VIRUS 3 NOT DETECTED; PARAINFLUENZA VIRUS 4 NOT DETECTED; RHINOVIRUS/ENTEROVIRUS DETECTED; RSV- RESP PCR PANEL NOT DETECTED; SARS-CoV-2 -RESP PCR PANEL NOT DETECTED
[2021-07-26] MEDS ORDERED: SODIUM CHLORIDE 0.9% 500 ML IV STA (06:06)
[2021-07-26 07:40] VITALS: BP 118/70
--- NOTE | 2021-07-26 10:45 | CT Report ---
PROCEDURE: Abdomen/Pelvis W INDICATIONS: diffuse abd pain, n/v fever CONTRAST: IV CONTRAST: Optiray 320 ml: 100 PO CONTRAST: *NO PO CONTRAST TECHNIQUE: After the administration of IV contrast, 5 mm thick sections acquired from the diaphragms to the symp hysis. 5 mm thick coronal and sagittal reformats were acquired. For radiation dose reduction, the f ollowing was used: automated exposure control, adjustment of mA and/or kV according to patient size. COMPARISON: 12/04/2020, 02/08/2020, 01/18/2020 FINDINGS: Image quality: Excellent. ABDOMEN: Lung bases: Minimal groundglass opacity can be seen within the lingula and within the anterior left l ower lobe. Heart size is normal. A small hiatal hernia is incidentally noted. Solid organs: Liver and spleen are normal in size and enhancement. Gallbladder has been removed. B iliary system is non dilated. Pancreas enhances normally. No adrenal nodules. Kidneys demonstrate normal size and enhancement, without hydronephrosis. Peritoneum and bowel: A sigmoid anastomotic staple line can be seen, as on series 3 image 77. No foc al abnormalities within this region. A normal appendix is seen. Bowel loops demonstrate normal wall thickness and caliber. No free fluid or air. Nodes and vessels: No retroperitoneal or mesenteric adenopathy by size criteria. Aorta and inferior vena cava are normal in size. Miscellaneous: No ventral hernias. PELVIS: Genitourinary: Bladder wall thickness is normal. Miscellaneous: No inguinal hernias or adenopathy. Bones: No suspicious bony lesions. No vertebral body compression fractures. There is minimal levoc onvex sclerotic curvature. IMPRESSION: No imaging explanation is found for the patient's presenting symptoms can be seen within the abdomen or pelvis. Minimal groundglass opacity can be seen within the lingula and the anterior left lower lobe. Please c onsider infection, including with COVID 19 pneumonia. Sigmoid anastomotic staple line, without focal abnormality. Normal appendix. Incidental note is made of: Small hiatal hernia Cholecystectomy Note: No significant discrepancy from the preliminary report. Reviewed by: Chapin Villegas MD on 07/26/2021 9:43 AM [facility] Approved by: Chapin Villegas MD on 07/26/2021 9:43 AM [facility] Station ID: [id number]
== END 2021-07-26 07:34 | disposition home or self-care (01) ==
LOC: ED 03:23
DX: B34.1 Enterovirus infection, unspecified (principal); Z20.822 Contact with and (suspected) exposure to COVID-19
CPT/HCPCS: 0202U; 36415; 74177; 80053; 81003; 83605; 83690; 85025; 87040; 96374; 96375; 99282; 99284; Q9967; 81001; 87086